=== PATIENT | male | born 1965 ===

== ENCOUNTER 2017-03-08 20:20 | Observation (INO) | payer MEDICARE, BC ==
[2017-03-08 20:44] VITALS: BMI 28.7
[2017-03-08 21:32] LABS: BASO # 0.1 K/uL (0.0-0.2); BASO % 1.1 % (0.0-2.0); EOS # 0.3 K/uL (0.0-0.7); EOS % 4.3 % (0.0-4.0); HEMATOCRIT 38.1 % (35.0-51.0); LYMPH # 2.1 K/uL (1.0-4.3); LYMPH % 29.4 % (20.0-40.0); MEAN CORPUSCULAR HEMOGLOBIN 33.2 pg (27.0-31.0); MEAN CORPUSCULAR HGB CONC 34.9 g/dL (33.0-37.0); MEAN PLATELET VOLUME 8.4 fL (7.2-11.7); MONO % 13.5 % (0.0-10.0); RED CELL DISTRIBUTION WIDTH 13.4 % (11.5-14.5); WHITE BLOOD COUNT 7.2 K/uL (4.8-10.8)
[2017-03-08 21:39] LABS: CHLORIDE 89 mmol/L (98-107); SODIUM 139 mmol/L (132-148)
[2017-03-08 21:40] LABS: POTASSIUM 4.3 mmol/L (3.6-5.2)
[2017-03-08 21:41] LABS: CHOLESTEROL 193 mg/dL (0-199)
[2017-03-08 21:42] LABS: ALB/GLOB RATIO 1.1 (1.0-2.1); ALKALINE PHOSPHATASE 121 U/L (38-126); AST/SGOT 33 U/L (17-59); BILIRUBIN,TOTAL 0.7 mg/dL (0.2-1.3); BLOOD UREA NITROGEN 54 mg/dL (9-20); CARBON DIOXIDE 30 mmol/L (22-30); GFR AFRICAN-AMERICAN 8; GLUCOSE,RANDOM 189 mg/dL (75-110); TOTAL PROTEIN 8.5 g/dL (6.3-8.3)
[2017-03-08 21:43] LABS: ALT/SGPT 40 U/L (21-72); CALCIUM 9.9 mg/dl (8.6-10.4)
[2017-03-08 21:44] LABS: INR 1.1
--- NOTE | 2017-03-08 22:31 | C.PDOC ---
History Of Present Illness 51 year old male who presents to the ER with a complaint of diplopia for the last 8 hours. Patient states it worsens with distant vision and when looking to each side. Denies headache, nausea, or vomiting. Time Seen by Provider: 03/08/17 20:38 Chief Complaint (Nursing): Headache History Per: Patient History/Exam Limitations: no limitations Onset/Duration Of Symptoms: Hrs Current Symptoms Are (Timing): Still Present Preceeding Symptoms: Other (Diplopia) Associated Symptoms: denies: Photophobia, Nausea, Vomiting, Extremity Weakness Recent travel outside of the [place]: No Past Medical History Reviewed: Historical Data, Nursing Documentation, Vital Signs Vital Signs: Last Vital Signs Temp 98.1 F 03/08/17 20:40 Pulse 72 03/08/17 21:37 Resp 20 03/08/17 20:40 BP 144/88 03/08/17 21:37 Pulse Ox 100 03/08/17 22:42 - Medical History PMH: CHF (2014), Diabetes, HTN, Hypercholesterolemia, Peripheral Edema, Pneumothorax, End Stage Renal Disease, Chronic Kidney Disease (Stage III kidney dis) Surgical History: No Surg Hx - [facility] Procedures ASSISTANCE WITH RESPIRATORY VENTILATION, <24 HRS, CPAP (04/12/16) OTHER SKIN & SUBQ I D (09/21/14) PERFORMANCE OF URINARY FILTRATION, MULTIPLE (06/02/16) Family History: States: Unknown Family Hx - Social History Hx Tobacco Use: No Hx Alcohol Use: Yes Hx Substance Use: No - Immunization History Hx Tetanus Toxoid Vaccination: Yes Hx Influenza Vaccination: Yes Hx Pneumococcal Vaccination: Yes Review Of Systems Constitutional: Negative for: Fever, Chills Eyes: Positive for: Other (Diplopia) Gastrointestinal: Negative for: Nausea, Vomiting Neurological: Negative for: Headache Physical Exam - Physical Exam Appears: Non-toxic Skin: Normal Color, Warm, Dry Head: Atraumatic, Normacephalic Eye(s): bilateral: Normal Inspection (No strabismus), PERRL, EOMI Oral Mucosa: Moist Neck: Normal, Supple Chest: Symmetrical, No Tenderness Cardiovascular: Rhythm Regular Respiratory: Normal Breath Sounds, No Rales, No Rhonchi, No Wheezing Gastrointestinal/Abdominal: Soft, No Tenderness Extremity: Normal ROM (x4) Neurological/Psych: Oriented x3, Normal Speech, Normal Cognition, Normal Motor, Normal Sensation ED Course And Treatment - Laboratory Results Result Diagrams: 03/08/17 21:28 03/08/17 21:28 Lab Interpretation: Abnormal (normal K+, c/w HD) ECG: Interpreted By Me ECG Rhythm: Sinus Rhythm ECG Interpretation: Normal Rate From EC O2 Sat by Pulse Oximetry: 100 Pulse Ox Interpretation: Normal - Radiology CXR: Interpreted by Me CXR Interpretation: Yes: No Acute Disease - Other Rad head CT X-Ray: Interpreted by Me, Read By Radiologist (neg) Progress Note: CT head, EKG, blood work, and CXR ordered. Aspirin and tylenol administered. Reevaluation Time: 22:30 Reassessment Condition: Unchanged - Physician Consult Information Outcome Of Conversation: 2230: d/w Dr. Brown- Hospitalist [employer] Professional- ok to Obs. Medical Decision Making Medical Decision Making: ? L eye palsy, but atypical presentation, no MEDEIROS consider CN palsy consider MRI Brain/eye in AM Disposition Doctor Will See Patient In The: Hospital Counseled Patient/Family Regarding: Studies Performed, Diagnosis - Disposition Disposition: HOSPITALIZED Disposition Time: 22:31 Condition: GOOD - Clinical Impression Clinical Impression: Diplopia - Scribe Statement The provider has reviewed the documentation as recorded by the Scribe Brian Patrick All medical record entries made by the Scribe were at my direction and personally dictated by me. I have reviewed the chart and agree that the record accurately reflects my personal performance of the history, physical exam, medical decision making, and the department course for this patient. I have also personally directed, reviewed, and agree with the discharge instructions and disposition.
--- NOTE | 2017-03-09 00:05 | CP.PCM.HP ---
<Jamir Neil - Last Filed: 03/09/17 00:56> History of Present Illness - History of Present Illness History of Present Illness: 51 yo M with a PMHx of ESRD, DM2, HTN, Gout, bilateral cataracts, presented to the ED for first time instance of diplopia which began suddenly this afternooon while sitting on the couch watching television. He took a nap but the diplopia was still present thus decided to come to the ED. He says closing either the right or left eye resolves the diplopia. He admits to feeling "pressure" in his ears bilaterally that began 1 weeks ago. He denies any other symptoms. He denies focal deficits, slurred speech, migraine, weakness, nausea, vomiting, numbness/tingling. He says he seeing an opthamologist for "retinal issues" and gets treatment every few months with his last treatment in 10/2016. Patient with insurance issues and hasn't taken home medications for last 1 month. PMD: Dr Thorpe; Holter Technician: Dr Markel Hill; Opthamologist: Dr Villatoro PMHx: ESRD - TThS, DM2 (20+ yrs), HTN, Gout, bilateral cataracts, right ankle instability PSHx: AVF formation 2015, cataract surgery right eye 2014, cataract surgery left eye 2013, chest tube placement right side 2003 Allergies: NKA Home Medications: norvasc 5mg qd, metoprolol succinate 50mg qd, lasix 40mg po bid on non-dialysis days, humulin 32u qAM and 22u qPM, allopurinol 100mg po daily, renvela 800mg tid FamHx: Mother - DM; Father - DM, [place]; Brother - DM, from [place] SocialHx: denies tobacco, drug use; social alcohol drinker; lives at home with ; on disability Present on Admission - Present on Admission Any Indicators Present on Admission: No History of DVT/PE: No Review of Systems - Constitutional Constitutional: Headache. absent: Chills, Fatigue, Fever, Lethargy, Weight Gain , Weight Loss, Weakness - EENT Eyes: Diplopia. absent: Exophthalmos, Itchy Eyes, Loss of Vision Ears: absent: Decreased Hearing, Ear Discharge, Ear Pain, Tinnitus, Abnormal Hearing, Disequilibrium, Dizziness Nose/Mouth/Throat: absent: Nasal Congestion, Nasal Discharge, Dysphagia, Hoarsness, Mouth Pain - Cardiovascular Cardiovascular: absent: Chest Pain, Palpitations - Respiratory Respiratory: absent: Cough, Dyspnea, Wheezing - Gastrointestinal Gastrointestinal: absent: Abdominal Pain, Constipation, Diarrhea, Nausea, Vomiting - Genitourinary Genitourinary: absent: Dysuria, Flank Pain, Urinary Frequency Additional comments: Patient able to make urine, normally 3x a day - Musculoskeletal Musculoskeletal: absent: Back Pain, Muscle Weakness, Numbness, Tingling - Integumentary Integumentary: absent: Lesions - Neurological Neurological: Headaches. absent: Abnormal Hearing, Confusion, Convulsions, Disequilibrium, Dizziness, Loss of Vision, Paresthesias, Radicular Pain, Syncope , Tingling, Vertigo Past Patient History - Infectious Disease Hx of Infectious Diseases: None - Past Medical History & Family History Past Medical History?: Yes - Past Social History Smoking Status: Never Smoked - CARDIAC Hx Congestive Heart Failure: Yes (2014) Hx Hypercholesterolemia: Yes Hx Hypertension: Yes Hx Peripheral Edema: Yes - PULMONARY Other/Comment: HX:"fluid in the lungs" - HEENT Hx HEENT Problems: No - RENAL Hx Chronic Kidney Disease: Yes (Stage III kidney dis) - ENDOCRINE/METABOLIC Hx Diabetes Mellitus Type 2: Yes - HEMATOLOGICAL/ONCOLOGICAL Hx Blood Disorders: No - INTEGUMENTARY Hx Dermatological Problems: Yes Hx Cellulitis: Yes - MUSCULOSKELETAL/RHEUMATOLOGICAL Other/Comment: HX:Right ankle states cartilage worn out between caused freq. falls. PT. REPORTS OF 03/24/16- BETTER BALANCE NOW WEARING RIGHT ANKLE BRACE. - GASTROINTESTINAL Hx Gastrointestinal Disorders: No - GENITOURINARY/GYNECOLOGICAL Hx Genitourinary Disorders: No - PSYCHIATRIC Hx Substance Use: No - SURGICAL HISTORY Hx Cataract Extraction: Yes (BILAT.) Other/Comment: lt arm fistula - ANESTHESIA Hx Anesthesia: Yes Hx Anesthesia Reactions: No Hx Malignant Hyperthermia: No Meds Allergies/Adverse Reactions: Allergies Allergy/AdvReac Type Severity Reaction Status Date / Time No Known Allergies Allergy Verified 07/10/16 19:46 Physical Exam - Constitutional Appears: Well, Non-toxic, No Acute Distress - Head Exam Head Exam: ATRAUMATIC - Eye Exam Eye Exam: EOMI. absent: Nystagmus, Scleral icterus Pupil Exam: PERRL - ENT Exam ENT Exam: Mucous Membranes Moist - Neck Exam Neck exam: Negative for: Lymphadenopathy, Tenderness - Respiratory Exam Respiratory Exam: Clear to Auscultation Bilateral. absent: Rales, Rhonchi, Wheezes - Cardiovascular Exam Cardiovascular Exam: REGULAR RHYTHM, RRR, +S1, +S2. absent: Bradycardia, Tachycardia, Diastolic murmur, JVD, Systolic Murmur - GI/Abdominal Exam GI & Abdominal Exam: Normal Bowel Sounds, Soft. absent: Distended, Guarding, Tenderness - Rectal Exam Rectal Exam: Deferred - Extremities Exam Extremities exam: Positive for: normal capillary refill, normal inspection, pedal pulses present. Negative for: pedal edema, tenderness Additional comments: right leg in brace due to "cartilage wasting" - Back Exam Back exam: NORMAL INSPECTION - Neurological Exam Neurological exam: Alert, CN II-XII Intact, Oriented x3, Reflexes Normal - Psychiatric Exam Psychiatric exam: Normal Affect, Normal Mood - Skin Skin Exam: Dry, Intact, Normal Color, Warm Results - Vital Signs Recent Vital Signs: Last Vital Signs Temp 98.1 F 03/08/17 20:40 Pulse 71 03/08/17 23:12 Resp 14 03/08/17 23:12 BP 138/88 03/08/17 23:12 Pulse Ox 97 03/08/17 23:12 - Labs Result Diagrams: 03/08/17 21:28 03/08/17 21:28 Labs: Laboratory Results - last 24 hr 03/08/17 03/08/17 03/08/17 20:37 21:28 21:28 WBC 7.2 RBC 4.01 L Hgb 13.3 Hct 38.1 MCV 95.0 H D MCH 33.2 H MCHC 34.9 RDW 13.4 Plt Count 190 MPV 8.4 Neut % (Auto) 51.7 Lymph % (Auto) 29.4 Lamb % (Auto) 13.5 H Eos % (Auto) 4.3 H Baso % (Auto) 1.1 Neut # 3.7 Lymph # 2.1 Lamb # 1.0 H Eos # 0.3 Baso # 0.1 PT 11.8 INR 1.1 APTT 34 Sodium Potassium Chloride Carbon Dioxide Anion Gap BUN Creatinine Est GFR ( Amer) Est GFR (Non-Af Amer) POC Glucose (mg/dL) 305 H Random Glucose Calcium Total Bilirubin AST ALT Alkaline Phosphatase Troponin I NT-Pro-B Natriuret Pep Total Protein Albumin Globulin Albumin/Globulin Ratio Triglycerides Cholesterol LDL Cholesterol Direct HDL Cholesterol 03/08/17 21:28 WBC RBC Hgb Hct MCV MCH MCHC RDW Plt Count MPV Neut % (Auto) Lymph % (Auto) Lamb % (Auto) Eos % (Auto) Baso % (Auto) Neut # Lymph # Lamb # Eos # Baso # PT INR APTT Sodium 139 Potassium 4.3 Chloride 89 L Carbon Dioxide 30 Anion Gap 24 H BUN 54 H Creatinine 8.1 H* D Est GFR ( Amer) 8 Est GFR (Non-Af Amer) 7 POC Glucose (mg/dL) Random Glucose 189 H Calcium 9.9 Total Bilirubin 0.7 AST 33 ALT 40 Alkaline Phosphatase 121 Troponin I < 0.0120 NT-Pro-B Natriuret Pep 1770 H Total Protein 8.5 H Albumin 4.5 Globulin 4.0 H Albumin/Globulin Ratio 1.1 Triglycerides 207 H D Cholesterol 193 LDL Cholesterol Direct 98 HDL Cholesterol 38 Assessment & Plan (1) Diplopia Assessment and Plan: sudden onset diplopia; NIH score 0; no other focal deficits; no dysarthria, n/v , nystagmus; ekg normal Neurology consulted, Dr Beyer F/U official Head CT report. "Wet Read" - no acute pathology MRI in the AM, get in touch with Dr Beyer to specify MRI type ECHO ordered Carotid doppler ordered Trop neg, coag studies normal, High Triglycerides but HDL/LDL/Cholesterol normal F/U HgbA1C, TSH aspirin 81mg po daily Status: Acute (2) ESRD (end stage renal disease) on dialysis Assessment and Plan: 2/2 to DM2; TTHS schedule; Nephorology consulted, Dr Markel Hill F/U HgA1C con't home med Humalin 32u sc qAM, 22u sc qPM con't home med furosemide 40mg po bid on Non-Dialysis days Status: Acute (3) Gout Assessment and Plan: con't home med allopurinol 100mg po qd Status: Chronic (4) Hypertension Assessment and Plan: BP well controlled con't home med Norvasc 5mg po qd con't home med Metoprolol succinate 50mg po qd Status: Chronic (5) Hyperlipidemia Assessment and Plan: Triglycerides 207; Other lipid markers WNL advise weight loss, aerobic exercise, avoidance of concentrated sugars and alcohol, strict glycemic control consider statin as LDL goal <70 Status: Acute (6) Prophylactic measure Assessment and Plan: DVT: heparin 5000u sc q12; contraindication to SCD due to knee brace/ osteoarthritis GI: pepcid 20mg po daily Diet: diabetic diet w/ moderate carb consistency Status: Acute <Luis Brown - Last Filed: 03/09/17 06:18> Results - Vital Signs Recent Vital Signs: Last Vital Signs Temp 98.1 F 03/08/17 23:55 Pulse 78 03/08/17 23:55 Resp 20 03/08/17 23:55 BP 156/86 H 03/08/17 23:55 Pulse Ox 98 03/08/17 23:55 - Labs Result Diagrams: 03/08/17 21:28 03/08/17 21:28 Labs: Laboratory Results - last 24 hr 03/08/17 03/08/17 03/08/17 20:37 21:28 21:28 WBC 7.2 RBC 4.01 L Hgb 13.3 Hct 38.1 MCV 95.0 H D MCH 33.2 H MCHC 34.9 RDW 13.4 Plt Count 190 MPV 8.4 Neut % (Auto) 51.7 Lymph % (Auto) 29.4 Lamb % (Auto) 13.5 H Eos % (Auto) 4.3 H Baso % (Auto) 1.1 Neut # 3.7 Lymph # 2.1 Lamb # 1.0 H Eos # 0.3 Baso # 0.1 PT 11.8 INR 1.1 APTT 34 Sodium Potassium Chloride Carbon Dioxide Anion Gap BUN Creatinine Est GFR ( Amer) Est GFR (Non-Af Amer) POC Glucose (mg/dL) 305 H Random Glucose Calcium Total Bilirubin AST ALT Alkaline Phosphatase Troponin I NT-Pro-B Natriuret Pep Total Protein Albumin Globulin Albumin/Globulin Ratio Triglycerides Cholesterol LDL Cholesterol Direct HDL Cholesterol 03/08/17 21:28 WBC RBC Hgb Hct MCV MCH MCHC RDW Plt Count MPV Neut % (Auto) Lymph % (Auto) Lamb % (Auto) Eos % (Auto) Baso % (Auto) Neut # Lymph # Lamb # Eos # Baso # PT INR APTT Sodium 139 Potassium 4.3 Chloride 89 L Carbon Dioxide 30 Anion Gap 24 H BUN 54 H Creatinine 8.1 H* D Est GFR ( Amer) 8 Est GFR (Non-Af Amer) 7 POC Glucose (mg/dL) Random Glucose 189 H Calcium 9.9 Total Bilirubin 0.7 AST 33 ALT 40 Alkaline Phosphatase 121 Troponin I < 0.0120 NT-Pro-B Natriuret Pep 1770 H Total Protein 8.5 H Albumin 4.5 Globulin 4.0 H Albumin/Globulin Ratio 1.1 Triglycerides 207 H D Cholesterol 193 LDL Cholesterol Direct 98 HDL Cholesterol 38 Assessment & Plan - Date & Time Date: 03/09/17 (I have seen and examined the patient. I agree with the findings and plan of care as documented by Dr. Neil. Patient with diplopia. Follow up official CT head result. MRI brain in AM. Consult to neuro. Consult nephro for history of ESRD for dialysis. Continue home meds for history of hypertension. Monitor for acute changes.) Time: 06:17 Attending/Attestation - Attestation I have personally seen and examined this patient.: Yes I have fully participated in the care of the patient.: Yes I have reviewed all pertinent clinical information: Yes
[2017-03-09 07:33] LABS: RBC URINE < 1 /hpf (0-3); URINE BILIRUBIN NEGATIVE (NEGATIVE); URINE BLOOD NEGATIVE (NEGATIVE); URINE COLOR Yellow (YELLOW); URINE GLUCOSE (UA) 3+ mg/dL (Normal); URINE KETONE NEGATIVE (NEGATIVE); URINE LEUKOCYTE ESTERASE NEG Leu/uL (Negative); URINE PROTEIN 3+ mg/dL (NEGATIVE); URINE UROBILINOGEN NORMAL mg/dL (0.2-1.0); WBC URINE < 1 /hpf (0-5)
[2017-03-09] MEDS: (Novolin R) Insulin Human Regular 100 units/ml vial SC SCH ×4 (07:56→21:26)
[2017-03-09 08:13] LABS: BASO # 0.1 K/uL (0.0-0.2); BASO % 0.9 % (0.0-2.0); EOS # 0.3 K/uL (0.0-0.7); EOS % 3.4 % (0.0-4.0); HEMATOCRIT 36.1 % (35.0-51.0); LYMPH # 2.1 K/uL (1.0-4.3); MEAN CELL VOLUME 95.1 fL (80.0-94.0); MEAN CORPUSCULAR HEMOGLOBIN 33.6 pg (27.0-31.0); MEAN CORPUSCULAR HGB CONC 35.3 g/dL (33.0-37.0); MEAN PLATELET VOLUME 8.8 fL (7.2-11.7); MONO # 0.9 K/uL (0.0-0.8); MONO % 10.9 % (0.0-10.0); RED CELL DISTRIBUTION WIDTH 13.2 % (11.5-14.5); WHITE BLOOD COUNT 8.6 K/uL (4.8-10.8)
--- NOTE | 2017-03-09 08:17 | CT ---
PROCEDURE: CT HEAD WITHOUT CONTRAST. HISTORY: L eye palsy, DM, ? aneurysm vs DM palsy COMPARISON: Noncontrast head CT performed 04/25/15 TECHNIQUE: Axial computed tomography images were obtained through the head/brain without intravenous contrast. Radiation dose: Total exam DLP = 863.02 mGy-cm. This CT exam was performed using one or more of the following dose reduction techniques: Automated exposure control, adjustment of the mA and/or kV according to patient size, and/or use of iterative reconstruction technique. FINDINGS: HEMORRHAGE: No intracranial hemorrhage. BRAIN: No mass effect or edema. The david-white matter differentiation appears intact. Please note that MRI with diffusion imaging is more sensitive in the detection of acute ischemic event. VENTRICLES: No hydrocephalus. CALVARIUM: Unremarkable. PARANASAL SINUSES: Unremarkable as visualized. No significant inflammatory changes. MASTOID AIR CELLS: Unremarkable as visualized. No inflammatory changes. OTHER FINDINGS: None. IMPRESSION: No acute intracranial pathology identified.
[2017-03-09 08:40] LABS: POTASSIUM 4.1 mmol/L (3.6-5.2)
[2017-03-09 08:42] LABS: BILIRUBIN,TOTAL 0.6 mg/dL (0.2-1.3)
[2017-03-09 08:43] LABS: ALB/GLOB RATIO 1.2 (1.0-2.1); TOTAL PROTEIN 7.9 g/dL (6.3-8.3)
[2017-03-09 08:44] LABS: CALCIUM 9.4 mg/dl (8.6-10.4)
[2017-03-09 08:54] LABS: THYROID STIMULATING HORMONE 1.69 mIU/L (0.46-4.68)
--- NOTE | 2017-03-09 09:26 | RAD ---
Chest x-ray single frontal view History: Admission film. Comparison: 06/02/2016 Findings: Patchy consolidative changes in the left mid lung zone. Additional mild patchy consolidative changes at the right lung base. Mild right hilar prominence. Diffuse increased interstitial lung markings which may represent mild venous congestion. Mild cardiomegaly. Degenerative changes in the spine and shoulders. Impression: Patchy consolidative changes in the left mid lung zone. Additional mild patchy consolidative changes at the right lung base. Mild right hilar prominence. Diffuse increased interstitial lung markings which may represent mild venous congestion. Mild cardiomegaly.
[2017-03-09] MEDS: (Novolin 70/30) NPH/Regular 70/30 Units/ml 10 ml vial SC SCH ×2 (09:57→18:11)
[2017-03-09] MEDS: Metoprolol Succinate 50 mg XL Tab PO SCH (10:07)
--- NOTE | 2017-03-09 15:39 | CP.PCM.CON ---
History of Present Illness - History of Present Illness History of Present Illness: Initial Nephrology Consultation: Assessment: Stable Diplopia Diabetic chronic Kidney Disease (E11.22) Hypertensive Chronic Kidney Disease (I12.0) End stage renal disease (N18.6) dependence on hemodialysis (Z99.2) (TTS) via AVF Hyperphosphatemia (E83.39), Secondary Hyperparathyroidism (E21.1), HTN (I12.0) Plan: No acute need for dialysis today. Will plan for dialysis tomorrow. Continue with Nephrovite 1 tab/day. Continue with phos binders home dose he gets hectorol 2 mcg dialysis. Last PTH level 225 BP control with meds as ordered. Patient not on RAAS carol as BP controlled Glycemic control, Dialysis consistent diet Further work up/management as per primary team Dose meds/antibiotics (if needed) for ESRD status. Avoid fleets enema/magnesium based laxatives. planned for MRI brain Thanks for allowing me to participate in care of your patient. Will follow patient with you. Please call if any Qs Dr Taqueria Carson Office: [phone] Chief Complaint; double vision HPI: Pt is a 51 y/o M with hx of ESRD on hemodialysis (TTS) via AVF, last dialysis sat, chronic anemia, hyperphosphatemia, secondary hyperparathyroidism, Diabetes Mellitus, hypertension presented with complaints of double vision for last 1 day. Denies chest pain, palpitation, shortness of breath, leg swelling. no headache/ weakness ROS: Constitutional Symptoms: Denies fever. No chills. No Recent Weight Changes Eyes: denies change in vision, denies watery eyes, c/o double vision Ears/Nose/Mouth/Throat: Denies Abnormal Taste. No Bad breath or Bad Taste. Cardiovascular: No chest pain. There is no shortness of breath. No palpitations. Pulmonary: No shortness of breath or cough. Gastrointestinal: denies abdominal pain No nausea. No vomiting. Denies change in bowel habits. Denies Bleeding Genitourinary: makes small urine. No associated pain or blood. Neurological: Denies headaches. No dizziness. Denies loss of balance. Denies weakness, denies tingling/numbness. Dermatological: No Rash or Bruising or ulcers. Psychiatric: Denies Anxiety. No depression. Denies hallucinations. Rheumatological: No joint pain. Denies Joint swelling Endocrine: Denies over tiredness. Denies Fatigue and denies Heat/Cold Intolerance. All other negative. Physical Examination: General Appearance: Comfortable, in no acute respiratory distress, co-operative . Vitals reviewed and noted as below Head; Atraumatic, normocephalic ENT: no ulcers no thrush. Tongue is midline. Oropharynx: no rash or ulcers. EYES: Pupils are equal, round and reactive to light accommodation. Eye muscles and extraocular movement intact. Sclera is anicteric. has diplopia Neck; supple no lymphadenopathy, no thyromegaly or bruit Lungs: Normal respiratory rate/effort. Breath sounds bilateral equal and clear Heart: Normal rate. s1s2 normal. No rub or gallop. Extremities: no edema. No varicose veins Neurological: Patient is alert, awake and oriented to person, place and time. No focal deficit. Strength bilateral appropriate and equal Skin: Warm and dry. Normal turgor. No rash. Palpitation: Normal elasticity for age Abdomen: Abdomen is soft. Bowel sounds +. There is no abdominal tenderness, no guarding/rigidity or organomegaly Psych: normal insight and normal affect/mood MSK: no joint tenderness or swelling. Digits and nails normal, no deformity : kidney or bladder not palpable Access: AVF Labs/imaging reviewed. Past medical history, past surgical history, family history, social history, allergy reviewed and noted as below Family Hx: no hx of CKD. Non contributory Past Patient History - Infectious Disease Hx of Infectious Diseases: None - Past Medical History & Family History Past Medical History?: Yes - Past Social History Smoking Status: Never Smoked - CARDIAC Hx Congestive Heart Failure: Yes (2014) Hx Hypercholesterolemia: Yes Hx Hypertension: Yes Hx Peripheral Edema: Yes - PULMONARY Hx Respiratory Disorders: No Other/Comment: HX:"fluid in the lungs" - NEUROLOGICAL Hx Neurological Disorder: No - HEENT Hx HEENT Problems: No Hx Cataracts: Yes (both eyes) - RENAL Date of Last Dialysis Treatment: 03/07/17 - ENDOCRINE/METABOLIC Hx Diabetes Mellitus Type 2: Yes - HEMATOLOGICAL/ONCOLOGICAL Hx Blood Disorders: No - INTEGUMENTARY Hx Dermatological Problems: Yes Hx Cellulitis: Yes - MUSCULOSKELETAL/RHEUMATOLOGICAL Hx Falls: No - GASTROINTESTINAL Hx Gastrointestinal Disorders: No - GENITOURINARY/GYNECOLOGICAL Hx Genitourinary Disorders: No - PSYCHIATRIC Hx Substance Use: No - SURGICAL HISTORY Hx Cataract Extraction: Yes (BILAT.) Hx Eye Surgery: Yes (catarct sx both eyes) Other/Comment: rt.arm fistula - ANESTHESIA Hx Anesthesia: Yes Hx Anesthesia Reactions: No Hx Malignant Hyperthermia: No Meds Allergies/Adverse Reactions: Allergies Allergy/AdvReac Type Severity Reaction Status Date / Time No Known Allergies Allergy Verified 07/10/16 19:46 - Medications Medications: Current Medications Allopurinol (Zyloprim) 100 mg PO DAILY [facility] Last Admin: 03/09/17 09:54 Dose: 100 mg Amlodipine Besylate (Norvasc) 5 mg PO DAILY [facility] Last Admin: 03/09/17 09:53 Dose: 5 mg Aspirin (Aspirin Chewable) 81 mg PO DAILY [facility] Last Admin: 03/09/17 09:54 Dose: 81 mg Famotidine (Pepcid) 20 mg PO DAILY [facility] Last Admin: 03/09/17 09:54 Dose: 20 mg Furosemide (Lasix) 40 mg PO BID [facility] Last Admin: 03/09/17 09:53 Dose: 40 mg Heparin Sodium (Porcine) (Heparin) 5,000 units SC Q12 [facility] Last Admin: 03/09/17 09:54 Dose: 5,000 units Insulin Human Isoph/Insulin Regular (Novolin 70/30 (70/30 Units/Ml) 10 Ml) 32 units SC QAM [facility] Last Admin: 03/09/17 09:57 Dose: 32 units Insulin Human Isoph/Insulin Regular (Novolin 70/30 (70/30 Units/Ml) 10 Ml) 22 units SC QPM [facility] Insulin Human Regular (Novolin R) 0 unit SC ACHS [facility] PRN Reason: Protocol Last Admin: 03/09/17 12:03 Dose: 2 unit Metoprolol Succinate (Toprol Xl) 50 mg PO DAILY [facility] Last Admin: 03/09/17 10:07 Dose: 50 mg Sevelamer Carbonate (Renvela) 800 mg PO TIDCC [facility] Last Admin: 03/09/17 12:03 Dose: 800 mg Results - Vital Signs Recent Vital Signs: Last Vital Signs Temp 97.8 F 03/09/17 08:09 Pulse 63 03/09/17 08:09 Resp 20 03/09/17 08:09 BP 149/78 03/09/17 09:53 Pulse Ox 97 03/09/17 08:09 - Labs Result Diagrams: 03/09/17 07:54 03/09/17 07:54 Labs: Laboratory Results - last 24 hr 03/08/17 03/08/17 03/08/17 20:37 21:28 21:28 WBC 7.2 RBC 4.01 L Hgb 13.3 Hct 38.1 MCV 95.0 H D MCH 33.2 H MCHC 34.9 RDW 13.4 Plt Count 190 MPV 8.4 Neut % (Auto) 51.7 Lymph % (Auto) 29.4 [place] % (Auto) 13.5 H Eos % (Auto) 4.3 H Baso % (Auto) 1.1 Neut # 3.7 Lymph # 2.1 [place] # 1.0 H Eos # 0.3 Baso # 0.1 PT 11.8 INR 1.1 APTT 34 Sodium Potassium Chloride Carbon Dioxide Anion Gap BUN Creatinine Est GFR ( Amer) Est GFR (Non-Af Amer) POC Glucose (mg/dL) 305 H Random Glucose Hemoglobin A1c Calcium Total Bilirubin AST ALT Alkaline Phosphatase Troponin I NT-Pro-B Natriuret Pep Total Protein Albumin Globulin Albumin/Globulin Ratio Triglycerides Cholesterol LDL Cholesterol Direct HDL Cholesterol TSH 3rd Generation Urine Color Urine Clarity Urine pH Ur Specific [place] Urine Protein Urine Glucose (UA) Urine Ketones Urine Blood Urine Nitrate Urine Bilirubin Urine Urobilinogen Ur Leukocyte Esterase Urine WBC (Auto) Urine RBC (Auto) 03/08/17 03/08/17 03/09/17 21:28 21:28 07:00 WBC RBC Hgb Hct MCV MCH MCHC RDW Plt Count MPV Neut % (Auto) Lymph % (Auto) [place] % (Auto) Eos % (Auto) Baso % (Auto) Neut # Lymph # [place] # Eos # Baso # PT INR APTT Sodium 139 Potassium 4.3 Chloride 89 L Carbon Dioxide 30 Anion Gap 24 H BUN 54 H Creatinine 8.1 H* D Est GFR ( Amer) 8 Est GFR (Non-Af Amer) 7 POC Glucose (mg/dL) Random Glucose 189 H Hemoglobin A1c 8.6 H Calcium 9.9 Total Bilirubin 0.7 AST 33 ALT 40 Alkaline Phosphatase 121 Troponin I < 0.0120 NT-Pro-B Natriuret Pep 1770 H Total Protein 8.5 H Albumin 4.5 Globulin 4.0 H Albumin/Globulin Ratio 1.1 Triglycerides 207 H D Cholesterol 193 LDL Cholesterol Direct 98 HDL Cholesterol 38 TSH 3rd Generation Urine Color Yellow Urine Clarity Clear Urine pH 7.0 Ur Specific [place] 1.016 Urine Protein 3+ H Urine Glucose (UA) 3+ H Urine Ketones Negative Urine Blood Negative Urine Nitrate Negative Urine Bilirubin Negative Urine Urobilinogen Normal Ur Leukocyte Esterase Neg Urine WBC (Auto) < 1 Urine RBC (Auto) < 1 03/09/17 03/09/17 03/09/17 07:02 07:54 07:54 WBC 8.6 RBC 3.80 L Hgb 12.7 Hct 36.1 MCV 95.1 H MCH 33.6 H MCHC 35.3 RDW 13.2 Plt Count 179 MPV 8.8 Neut % (Auto) 60.8 Lymph % (Auto) 24.0 [place] % (Auto) 10.9 H Eos % (Auto) 3.4 Baso % (Auto) 0.9 Neut # 5.2 Lymph # 2.1 [place] # 0.9 H Eos # 0.3 Baso # 0.1 PT INR APTT Sodium 141 Potassium 4.1 Chloride 92 L Carbon Dioxide 28 Anion Gap 25 H BUN 63 H Creatinine 9.0 H* Est GFR ( Amer) 8 Est GFR (Non-Af Amer) 6 POC Glucose (mg/dL) 125 H Random Glucose 109 Hemoglobin A1c Calcium 9.4 Total Bilirubin 0.6 AST 35 ALT 41 Alkaline Phosphatase 102 Troponin I NT-Pro-B Natriuret Pep Total Protein 7.9 Albumin 4.3 Globulin 3.6 Albumin/Globulin Ratio 1.2 Triglycerides Cholesterol LDL Cholesterol Direct HDL Cholesterol TSH 3rd Generation 1.69 Urine Color Urine Clarity Urine pH Ur Specific [place] Urine Protein Urine Glucose (UA) Urine Ketones Urine Blood Urine Nitrate Urine Bilirubin Urine Urobilinogen Ur Leukocyte Esterase Urine WBC (Auto) Urine RBC (Auto) 03/09/17 11:07 WBC RBC Hgb Hct MCV MCH MCHC RDW Plt Count MPV Neut % (Auto) Lymph % (Auto) [place] % (Auto) Eos % (Auto) Baso % (Auto) Neut # Lymph # [place] # Eos # Baso # PT INR APTT Sodium Potassium Chloride Carbon Dioxide Anion Gap BUN Creatinine Est GFR ( Amer) Est GFR (Non-Af Amer) POC Glucose (mg/dL) 191 H Random Glucose Hemoglobin A1c Calcium Total Bilirubin AST ALT Alkaline Phosphatase Troponin I NT-Pro-B Natriuret Pep Total Protein Albumin Globulin Albumin/Globulin Ratio Triglycerides Cholesterol LDL Cholesterol Direct HDL Cholesterol TSH 3rd Generation Urine Color Urine Clarity Urine pH Ur Specific [place] Urine Protein Urine Glucose (UA) Urine Ketones Urine Blood Urine Nitrate Urine Bilirubin Urine Urobilinogen Ur Leukocyte Esterase Urine WBC (Auto) Urine RBC (Auto)
--- NOTE | 2017-03-09 16:11 | CP.PCM.CON ---
History of Present Illness - History of Present Illness History of Present Illness: Mr. Bond is a 51-year-old man with a past medical history of ESRD, DM2, HTN, Gout, bilateral cataracts, who presented to the ED with double vision that started earlier yesterday while he was watching a game. He states that he thought it was due to his blood pressure and he took a nap. He woke up 2.5 hours later and still had double vision. At that point, he came to the ER. He did not have any weakness, speech difficulty, sensory changes or any other associated symptoms. Review of Systems - Review of Systems All systems: reviewed and no additional remarkable complaints except Past Patient History - Infectious Disease Hx of Infectious Diseases: None - Past Medical History & Family History Past Medical History?: Yes - Past Social History Smoking Status: Never Smoked - CARDIAC Hx Congestive Heart Failure: Yes (2014) Hx Hypercholesterolemia: Yes Hx Hypertension: Yes Hx Peripheral Edema: Yes - PULMONARY Hx Respiratory Disorders: No Other/Comment: HX:"fluid in the lungs" - NEUROLOGICAL Hx Neurological Disorder: No - HEENT Hx HEENT Problems: No Hx Cataracts: Yes (both eyes) - RENAL Date of Last Dialysis Treatment: 03/07/17 - ENDOCRINE/METABOLIC Hx Diabetes Mellitus Type 2: Yes - HEMATOLOGICAL/ONCOLOGICAL Hx Blood Disorders: No - INTEGUMENTARY Hx Dermatological Problems: Yes Hx Cellulitis: Yes - MUSCULOSKELETAL/RHEUMATOLOGICAL Hx Falls: No - GASTROINTESTINAL Hx Gastrointestinal Disorders: No - GENITOURINARY/GYNECOLOGICAL Hx Genitourinary Disorders: No - PSYCHIATRIC Hx Substance Use: No - SURGICAL HISTORY Hx Cataract Extraction: Yes (BILAT.) Hx Eye Surgery: Yes (catarct sx both eyes) Other/Comment: rt.arm fistula - ANESTHESIA Hx Anesthesia: Yes Hx Anesthesia Reactions: No Hx Malignant Hyperthermia: No Meds Allergies/Adverse Reactions: Allergies Allergy/AdvReac Type Severity Reaction Status Date / Time No Known Allergies Allergy Verified 07/10/16 19:46 - Medications Medications: Current Medications Allopurinol (Zyloprim) 100 mg PO DAILY [facility] Last Admin: 03/09/17 09:54 Dose: 100 mg Amlodipine Besylate (Norvasc) 5 mg PO DAILY [facility] Last Admin: 03/09/17 09:53 Dose: 5 mg Aspirin (Aspirin Chewable) 81 mg PO DAILY [facility] Last Admin: 03/09/17 09:54 Dose: 81 mg Famotidine (Pepcid) 20 mg PO DAILY [facility] Last Admin: 03/09/17 09:54 Dose: 20 mg Furosemide (Lasix) 40 mg PO BID [facility] Last Admin: 03/09/17 09:53 Dose: 40 mg Heparin Sodium (Porcine) (Heparin) 5,000 units SC Q12 [facility] Last Admin: 03/09/17 09:54 Dose: 5,000 units Insulin Human Isoph/Insulin Regular (Novolin 70/30 (70/30 Units/Ml) 10 Ml) 32 units SC QAM [facility] Last Admin: 03/09/17 09:57 Dose: 32 units Insulin Human Isoph/Insulin Regular (Novolin 70/30 (70/30 Units/Ml) 10 Ml) 22 units SC QPM [facility] Insulin Human Regular (Novolin R) 0 unit SC ACHS [facility] PRN Reason: Protocol Last Admin: 03/09/17 12:03 Dose: 2 unit Metoprolol Succinate (Toprol Xl) 50 mg PO DAILY [facility] Last Admin: 03/09/17 10:07 Dose: 50 mg Sevelamer Carbonate (Renvela) 800 mg PO TIDCC [facility] Last Admin: 03/09/17 12:03 Dose: 800 mg Vitamin B Complex/Vit C/Folic Acid (Nephro-Gaby) 1 tab PO 0800 [facility] Physical Exam - Constitutional Appears: Well - Head Exam Head Exam: ATRAUMATIC, NORMAL INSPECTION, NORMOCEPHALIC - Eye Exam Pupil Exam: NORMAL ACCOMODATION, PERRL Additional comments: 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 - ENT Exam ENT Exam: Mucous Membranes Moist, Normal Exam - Neck Exam Neck exam: Positive for: Normal Inspection - Respiratory Exam Respiratory Exam: Clear to Auscultation Bilateral, NORMAL BREATHING PATTERN - Cardiovascular Exam Cardiovascular Exam: REGULAR RHYTHM, +S1, +S2 - GI/Abdominal Exam GI & Abdominal Exam: Normal Bowel Sounds, Soft. absent: Tenderness - Rectal Exam Rectal Exam: Deferred - Extremities Exam Extremities exam: Positive for: normal inspection - Back Exam Back exam: NORMAL INSPECTION - Neurological Exam Neurological exam: Alert, CN II-XII Intact, Normal Gait, Oriented x3, Reflexes Normal - Expanded Neurological Exam Expanded Patient oriented to: person, place, time Cranial nerves: EOM's Intact: Abnormal Right (Right partial 6th nerve palsy), Facial Palsey w/Forehead Movement: Normal, Facial Sensation: Normal, Nystagmus: Normal, Tongue Deviation: Normal Ataxia: No Cerebellar Function: Finger to Nose: Normal, Heel to Friend: Normal Upper motor neuron: Babinski Sign: Normal, Pronator Drift: Normal Sensory exam: Lower Extremity Light Touch: Normal, Lower Extremity Pin Prick: Normal, Upper Extremity Light Touch: Normal, Upper Extremity Pin Prick: Normal Neuro motor strength exam: Left Upper Extremity: 5, Right Upper Extremity: 5, Left Lower Extremity: 5, Right Lower Extremity: 5 DTR: Achilles Tendon Left: 2+, Achilles Tendon Right: 2+, Bicep Left: 2+, Bicep Right: 2+, Brachioradialis Left: 2+, Brachioradialis Right: 2+, Patellar Left: 2 +, Patellar Right: 2+, Tricep Left: 2+, Tricep Right: 2+ - Psychiatric Exam Psychiatric exam: Normal Affect, Normal Mood - Skin Skin Exam: Dry, Intact, Normal Color, Warm Results - Vital Signs Recent Vital Signs: Last Vital Signs Temp 97.8 F 03/09/17 08:09 Pulse 63 03/09/17 08:09 Resp 20 03/09/17 08:09 BP 149/78 03/09/17 09:53 Pulse Ox 97 03/09/17 08:09 - Labs Result Diagrams: 03/09/17 07:54 03/09/17 07:54 Labs: Laboratory Results - last 24 hr 03/08/17 03/08/17 03/08/17 20:37 21:28 21:28 WBC 7.2 RBC 4.01 L Hgb 13.3 Hct 38.1 MCV 95.0 H D MCH 33.2 H MCHC 34.9 RDW 13.4 Plt Count 190 MPV 8.4 Neut % (Auto) 51.7 Lymph % (Auto) 29.4 [place] % (Auto) 13.5 H Eos % (Auto) 4.3 H Baso % (Auto) 1.1 Neut # 3.7 Lymph # 2.1 [place] # 1.0 H Eos # 0.3 Baso # 0.1 PT 11.8 INR 1.1 APTT 34 Sodium Potassium Chloride Carbon Dioxide Anion Gap BUN Creatinine Est GFR ( Amer) Est GFR (Non-Af Amer) POC Glucose (mg/dL) 305 H Random Glucose Hemoglobin A1c Calcium Total Bilirubin AST ALT Alkaline Phosphatase Troponin I NT-Pro-B Natriuret Pep Total Protein Albumin Globulin Albumin/Globulin Ratio Triglycerides Cholesterol LDL Cholesterol Direct HDL Cholesterol TSH 3rd Generation Urine Color Urine Clarity Urine pH Ur Specific [place] Urine Protein Urine Glucose (UA) Urine Ketones Urine Blood Urine Nitrate Urine Bilirubin Urine Urobilinogen Ur Leukocyte Esterase Urine WBC (Auto) Urine RBC (Auto) 03/08/17 03/08/17 03/09/17 21:28 21:28 07:00 WBC RBC Hgb Hct MCV MCH MCHC RDW Plt Count MPV Neut % (Auto) Lymph % (Auto) [place] % (Auto) Eos % (Auto) Baso % (Auto) Neut # Lymph # [place] # Eos # Baso # PT INR APTT Sodium 139 Potassium 4.3 Chloride 89 L Carbon Dioxide 30 Anion Gap 24 H BUN 54 H Creatinine 8.1 H* D Est GFR ( Amer) 8 Est GFR (Non-Af Amer) 7 POC Glucose (mg/dL) Random Glucose 189 H Hemoglobin A1c 8.6 H Calcium 9.9 Total Bilirubin 0.7 AST 33 ALT 40 Alkaline Phosphatase 121 Troponin I < 0.0120 NT-Pro-B Natriuret Pep 1770 H Total Protein 8.5 H Albumin 4.5 Globulin 4.0 H Albumin/Globulin Ratio 1.1 Triglycerides 207 H D Cholesterol 193 LDL Cholesterol Direct 98 HDL Cholesterol 38 TSH 3rd Generation Urine Color Yellow Urine Clarity Clear Urine pH 7.0 Ur Specific [place] 1.016 Urine Protein 3+ H Urine Glucose (UA) 3+ H Urine Ketones Negative Urine Blood Negative Urine Nitrate Negative Urine Bilirubin Negative Urine Urobilinogen Normal Ur Leukocyte Esterase Neg Urine WBC (Auto) < 1 Urine RBC (Auto) < 1 03/09/17 03/09/17 03/09/17 07:02 07:54 07:54 WBC 8.6 RBC 3.80 L Hgb 12.7 Hct 36.1 MCV 95.1 H MCH 33.6 H MCHC 35.3 RDW 13.2 Plt Count 179 MPV 8.8 Neut % (Auto) 60.8 Lymph % (Auto) 24.0 [place] % (Auto) 10.9 H Eos % (Auto) 3.4 Baso % (Auto) 0.9 Neut # 5.2 Lymph # 2.1 [place] # 0.9 H Eos # 0.3 Baso # 0.1 PT INR APTT Sodium 141 Potassium 4.1 Chloride 92 L Carbon Dioxide 28 Anion Gap 25 H BUN 63 H Creatinine 9.0 H* Est GFR ( Amer) 8 Est GFR (Non-Af Amer) 6 POC Glucose (mg/dL) 125 H Random Glucose 109 Hemoglobin A1c Calcium 9.4 Total Bilirubin 0.6 AST 35 ALT 41 Alkaline Phosphatase 102 Troponin I NT-Pro-B Natriuret Pep Total Protein 7.9 Albumin 4.3 Globulin 3.6 Albumin/Globulin Ratio 1.2 Triglycerides Cholesterol LDL Cholesterol Direct HDL Cholesterol TSH 3rd Generation 1.69 Urine Color Urine Clarity Urine pH Ur Specific [place] Urine Protein Urine Glucose (UA) Urine Ketones Urine Blood Urine Nitrate Urine Bilirubin Urine Urobilinogen Ur Leukocyte Esterase Urine WBC (Auto) Urine RBC (Auto) 03/09/17 11:07 WBC RBC Hgb Hct MCV MCH MCHC RDW Plt Count MPV Neut % (Auto) Lymph % (Auto) [place] % (Auto) Eos % (Auto) Baso % (Auto) Neut # Lymph # [place] # Eos # Baso # PT INR APTT Sodium Potassium Chloride Carbon Dioxide Anion Gap BUN Creatinine Est GFR ( Amer) Est GFR (Non-Af Amer) POC Glucose (mg/dL) 191 H Random Glucose Hemoglobin A1c Calcium Total Bilirubin AST ALT Alkaline Phosphatase Troponin I NT-Pro-B Natriuret Pep Total Protein Albumin Globulin Albumin/Globulin Ratio Triglycerides Cholesterol LDL Cholesterol Direct HDL Cholesterol TSH 3rd Generation Urine Color Urine Clarity Urine pH Ur Specific [place] Urine Protein Urine Glucose (UA) Urine Ketones Urine Blood Urine Nitrate Urine Bilirubin Urine Urobilinogen Ur Leukocyte Esterase Urine WBC (Auto) Urine RBC (Auto) - Imaging and Cardiology CT scan - head Status: Image reviewed by me, Report reviewed by me (no acute findings. 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 However, a brainstem infarct should be ruled out with an MRI of the brain and MRA of the head/neck without contrast. Continue aspirin 81 mg daily. Manage hypertension, diabetes, and electrolyte disturbances per primary team. Eye patch of the right eye may help the patient feel less nauseous and help relieve symptoms of diplopia until the underlying cause is improved. PT/OT eval is recommended. DVT Px. Thank you. Status: Acute Priority: High
--- NOTE | 2017-03-09 19:08 | CP.PCM.PN ---
<Piedad Zamora - Last Filed: 03/09/17 19:26> Subjective - Date & Time of Evaluation Date of Evaluation: 03/09/17 Time of Evaluation: 19:03 - Subjective Subjective: Progress note for Dr. Melendez Patient states his diplopia is the same as yesterday. Patient states he's a little nauseous, but does not have pain in eye. Patient states he hasn't been taking his medications for a month or so and says that Dr. Villatoro normally takes care of his retinal problems. Patient states he has injections in his eyes and laser treatments. Patient has not seen the doctor in awhile. Objective - Vital Signs/Intake and Output Vital Signs (last 24 hours): Temp Pulse Resp BP Pulse Ox 98 F 65 20 127/77 97 03/09/17 16:33 03/09/17 16:33 03/09/17 16:33 03/09/17 17:02 03/09/17 16:33 Intake and Output: 03/09/17 03/10/17 18:59 06:59 Intake Total 360 Balance 360 - Medications Medications: Current Medications Allopurinol (Zyloprim) 100 mg PO DAILY [facility] Last Admin: 03/09/17 09:54 Dose: 100 mg Amlodipine Besylate (Norvasc) 5 mg PO DAILY [facility] Last Admin: 03/09/17 09:53 Dose: 5 mg Aspirin (Aspirin Chewable) 81 mg PO DAILY [facility] Last Admin: 03/09/17 09:54 Dose: 81 mg Famotidine (Pepcid) 20 mg PO DAILY [facility] Last Admin: 03/09/17 09:54 Dose: 20 mg Furosemide (Lasix) 40 mg PO BID [facility] Last Admin: 03/09/17 17:02 Dose: 40 mg Heparin Sodium (Porcine) (Heparin) 5,000 units SC Q12 [facility] Last Admin: 03/09/17 09:54 Dose: 5,000 units Insulin Human Isoph/Insulin Regular (Novolin 70/30 (70/30 Units/Ml) 10 Ml) 32 units SC QAM [facility] Last Admin: 03/09/17 09:57 Dose: 32 units Insulin Human Isoph/Insulin Regular (Novolin 70/30 (70/30 Units/Ml) 10 Ml) 22 units SC QPM [facility] Last Admin: 03/09/17 18:11 Dose: 22 units Insulin Human Regular (Novolin R) 0 unit SC ACHS [facility] PRN Reason: Protocol Last Admin: 03/09/17 17:02 Dose: Not Given Metoprolol Succinate (Toprol Xl) 50 mg PO DAILY [facility] Last Admin: 03/09/17 10:07 Dose: 50 mg Sevelamer Carbonate (Renvela) 800 mg PO TIDCC [facility] Last Admin: 03/09/17 16:37 Dose: 800 mg Vitamin B Complex/Vit C/Folic Acid (Nephro-Gaby) 1 tab PO 0800 [facility] - Labs Labs: 03/09/17 07:54 03/09/17 07:54 PT 11.8 SECONDS (9.7-12.2) 03/08/17 21:28 INR 1.1 03/08/17 21:28 APTT 34 SECONDS (21-34) 03/08/17 21:28 - Constitutional Appears: Non-toxic - Head Exam Head Exam: NORMAL INSPECTION - Eye Exam Eye Exam: EOMI, Normal appearance. absent: Nystagmus, Periorbital tenderness Pupil Exam: NORMAL ACCOMODATION - ENT Exam ENT Exam: Mucous Membranes Moist - Neck Exam Neck Exam: Full ROM - Cardiovascular Exam Cardiovascular Exam: REGULAR RHYTHM, +S1, +S2 - GI/Abdominal Exam GI & Abdominal Exam: Soft. absent: Tenderness - Extremities Exam Extremities Exam: Full ROM, Normal Inspection. absent: Pedal Edema - Neurological Exam Neurological Exam: Alert, Awake, Oriented x3 - Psychiatric Exam Psychiatric exam: Normal Affect, Normal Mood - Skin Skin Exam: Dry, Intact, Normal Color, Warm Assessment and Plan - Assessment and Plan (Free Text) Assessment: (1)Diplopia f/u MRI, MRA of brain 03/08 CT Head: no mass effect or edema, david-white matter differentiation 03/09: Neurology Consult Dr. 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 brainstem infarct should be ruled out with an MRI of the brain and MRA of the head/neck without contrast. Continue aspirin 81 mg daily.Consider eye patch of the right eye to decrease nausea and help relieve symptoms of diplopia until the underlying cause is improved. PT/OT eval is recommended. DVT Px. (2) ESRD (end stage renal disease) on dialysis, secondary to DM2 ( Thursday, Thursday) 03/[address] Carson: no acute need for dialysis 03/09, but will plan for dialysis 03/10. Continue nephrovite 1 tab/day, patient gets hectorol 2mcg dialysis. avoid fleet enemas/magnesium based laxatives continue home medication: furosemide 40mg po bid (on days not on dialysis) (3) DM Hgb A1c 8.6 LDL 98, goal <70 continue with home medication: Humalin 32u sc qAM, 22u sc qPM UA 3+ Protein, Glucose 3+. Negative leukocyte esterase, ketones, nitrates, casts (4) Gout Assessment and Plan: con't home med allopurinol 100mg po qd Status: Chronic (5) Hypertension BP well controlled 03/08 Carotid Doppler, follow up final read 03/08 Echocardiogram: follow up final read 03/08 CXR: mild cardiomegaly, patchy changes in left mid lung zone. mild right hilar prominence, diffuse increased interstitial lung markings, mild venous congestion BNP: 1770 TSH: 1.69 03/08 EKbpm NSR continue with Norvasc 5mg POQD continue with Metoprolol succinate 50mg POQD (6) Hyperlipidemia Triglycerides 207 advise weight loss, aerobic exercise, avoidance of concentrated sugars and alcohol, strict glycemic control consider statin as LDL goal <70 f/u carotid doppler (6) Prophylaxis DVT: heparin 5,000u sc q12 contraindication to SCD: knee brace/osteoarthritis ASA 81 mg POQD GI: Pepcid 20mg po daily Diet: Diabetic diet w/ Moderate Carb Consistent diet discussed with DR. Al Zamora DO PGY1 <Arthur Melendez - Last Filed: 03/09/17 20:25> Objective - Vital Signs/Intake and Output Vital Signs (last 24 hours): Temp Pulse Resp BP Pulse Ox 98 F 65 20 127/77 97 03/09/17 16:33 03/09/17 16:33 03/09/17 16:33 03/09/17 17:02 03/09/17 16:33 Intake and Output: 03/09/17 03/10/17 18:59 06:59 Intake Total 360 Balance 360 - Medications Medications: Current Medications Allopurinol (Zyloprim) 100 mg PO DAILY [facility] Last Admin: 03/09/17 09:54 Dose: 100 mg Amlodipine Besylate (Norvasc) 5 mg PO DAILY [facility] Last Admin: 03/09/17 09:53 Dose: 5 mg Aspirin (Aspirin Chewable) 81 mg PO DAILY [facility] Last Admin: 03/09/17 09:54 Dose: 81 mg Famotidine (Pepcid) 20 mg PO DAILY [facility] Last Admin: 03/09/17 09:54 Dose: 20 mg Furosemide (Lasix) 40 mg PO BID [facility] Last Admin: 03/09/17 17:02 Dose: 40 mg Heparin Sodium (Porcine) (Heparin) 5,000 units SC Q12 [facility] Last Admin: 03/09/17 09:54 Dose: 5,000 units Insulin Human Isoph/Insulin Regular (Novolin 70/30 (70/30 Units/Ml) 10 Ml) 32 units SC QAM [facility] Last Admin: 03/09/17 09:57 Dose: 32 units Insulin Human Isoph/Insulin Regular (Novolin 70/30 (70/30 Units/Ml) 10 Ml) 22 units SC QPM [facility] Last Admin: 03/09/17 18:11 Dose: 22 units Insulin Human Regular (Novolin R) 0 unit SC ACHS [facility] PRN Reason: Protocol Last Admin: 03/09/17 17:02 Dose: Not Given Metoprolol Succinate (Toprol Xl) 50 mg PO DAILY [facility] Last Admin: 03/09/17 10:07 Dose: 50 mg Sevelamer Carbonate (Renvela) 800 mg PO TIDCC [facility] Last Admin: 03/09/17 16:37 Dose: 800 mg Vitamin B Complex/Vit C/Folic Acid (Nephro-Gaby) 1 tab PO 0800 [facility] - Labs Labs: 03/09/17 07:54 03/09/17 07:54 PT 11.8 SECONDS (9.7-12.2) 03/08/17 21:28 INR 1.1 03/08/17 21:28 APTT 34 SECONDS (21-34) 03/08/17 21:28 Attending/Attestation - Attestation I have personally seen and examined this patient.: Yes I have fully participated in the care of the patient.: Yes I have reviewed all pertinent clinical information, including history, physical exam and plan: Yes Notes (Text): 03/09/17 20:16 Patient was seen and examined at 2PM 03/09/17 Exam, assessment and plan were gone over with the resident. Also on ROS still with diplopia that disappears if he covers either eye and leaves the other open I called the office of Opthalmologist Dr. Villatoro (whom the patient was treated with laser and injection treatment in October 2016) [phone] and was provided with his cell phone number [phone] and left him a message on his cell phone. Awaiting performance of MRI Brain, MRA Head/Neck Arthur Melendez D.O.
[2017-03-10 06:28] LABS: BASO # 0.1 K/uL (0.0-0.2); BASO % 1.1 % (0.0-2.0); EOS # 0.3 K/uL (0.0-0.7); EOS % 4.5 % (0.0-4.0); HEMATOCRIT 34.8 % (35.0-51.0); LYMPH # 2.1 K/uL (1.0-4.3); LYMPH % 31.4 % (20.0-40.0); MEAN CELL VOLUME 94.5 fL (80.0-94.0); MEAN CORPUSCULAR HEMOGLOBIN 33.3 pg (27.0-31.0); MEAN CORPUSCULAR HGB CONC 35.2 g/dL (33.0-37.0); MEAN PLATELET VOLUME 8.7 fL (7.2-11.7); MONO # 0.7 K/uL (0.0-0.8); MONO % 10.4 % (0.0-10.0); RED CELL DISTRIBUTION WIDTH 13.4 % (11.5-14.5); WHITE BLOOD COUNT 6.8 K/uL (4.8-10.8)
[2017-03-10 06:33] LABS: POTASSIUM 4.2 mmol/L (3.6-5.2)
[2017-03-10 06:35] LABS: ALB/GLOB RATIO 0.9 (1.0-2.1); BILIRUBIN,TOTAL 0.5 mg/dL (0.2-1.3)
[2017-03-10 06:36] LABS: CALCIUM 9.7 mg/dl (8.6-10.4)
[2017-03-10] MEDS: (Novolin R) Insulin Human Regular 100 units/ml vial SC SCH ×3 (07:42→16:30)
[2017-03-10] MEDS ORDERED: Multivitamin Vitamin B Complex (Nephro-Vite) Tab PO SCH (08:00)
[2017-03-10] MEDS: Metoprolol Succinate 50 mg XL Tab PO SCH (09:19)
[2017-03-10] MEDS: (Novolin 70/30) NPH/Regular 70/30 Units/ml 10 ml vial SC SCH ×2 (10:03→17:52)
--- NOTE | 2017-03-10 11:42 | MRI ---
PROCEDURE: Magnetic Resonance Angiography Brain HISTORY: diplopia COMPARISON: None available. TECHNIQUE: 3D time of flight MR angiography of the intracranial arteries was performed. Rotating maximum intensity projection images were generated. FINDINGS: INTERNAL CAROTID ARTERIES: Unremarkable. The skull base, petrous, cavernous and supraclinoid segments are bilaterally widely patient. ANTERIOR CEREBRAL ARTERIES: Unremarkable. A1 and A2 segments are widely patent. Smaller distal branches unremarkable, as visualized. MIDDLE CEREBRAL ARTERIES: Unremarkable. M1 and M2 segments are widely patent. Perisylvian branches grossly symmetric. POSTERIOR CIRCULATION: Basilar Artery: Widely patent with left dominant vertebrobasilar circulation evident. Distal Vertebral Arteries: Unremarkable. Posterior Cerebral Arteries: Unremarkable. Posterior Inferior Cerebellar Arteries: Unremarkable. ANEURYSM/ VASCULAR MALFORMATIONS: None. OTHER FINDINGS: None. IMPRESSION: Unremarkable MR angiography of the brain.
--- NOTE | 2017-03-10 11:47 | MRI ---
PROCEDURE: MR Angiography of the neck without contrast HISTORY: diplopia COMPARISON: None available. TECHNIQUE: 3D [id number] angiography of the neck was performed. Rotating maximum intensity projection images of the cervical carotid and vertebral arteries were generated. The origins of the common carotid arteries were not visualized, which is a limitation inherent to the non-contrast time of flight technique. FINDINGS: RIGHT CAROTID ARTERIES: Common Carotid Artery: Normal. Carotid Bifurcation: Moderate atherosclerotic plaque is identified at the level of the bulb. Internal Carotid Artery:Less than 50 percent stenosis is appreciated its origin. External Carotid Artery (proximal branches): Normal. LEFT CAROTID ARTERIES: Common Carotid Artery: Normal. Carotid Bifurcation: Moderate atherosclerotic plaques identified at the level of the carotid bulb. Internal Carotid Artery:Less than 50 percent stenosis is appreciated at the origin External Carotid Artery (proximal branches): Normal. VERTEBRAL ARTERIES: Right Vertebral Artery: Persistent origin or possible incidental proximal to mid segment at absence. Left Vertebral Artery: Normal. OTHER FINDINGS: None. IMPRESSION: Less than 50 percent stenosis seen at the bilateral ICA origins due to atherosclerotic plaque at the bilateral carotid bulb regions. Likely origin right vertebral artery throughout the majority of its extent.
--- NOTE | 2017-03-10 13:42 | MRI ---
PROCEDURE: MRI BRAIN WITHOUT CONTRAST HISTORY: diplopia COMPARISON: Head CT without contrast 03/08/2017. TECHNIQUE: Multiplanar, multisequence MR images of the brain were obtained without intravenous contrast enhancement. FINDINGS: HEMORRHAGE: None DWI: No evidence of an acute or early subacute infarction. BRAIN PARENCHYMA: No mass effect or edema. The ventricles sulci and cisterns are stable in overall volume and not appear dramatically increased in the interval. No suspicious extra-axial fluid collections identified in the corticomedullary intrinsic signal is normal above and below the tentorium including the brainstem. Subtle diffuse cerebral atrophy appreciated. VENTRICLES: Unremarkable. No hydrocephalus. CRANIUM: Unremarkable. ORBITS: Grossly unremarkable. PARANASAL SINUSES/MASTOIDS: Clear VASCULAR SYSTEM: Skull base flow voids intact. OTHER FINDINGS: None. IMPRESSION: Subtle diffuse cerebral atrophy. Exam is otherwise unremarkable. No acute intracranial findings.
[2017-03-10 14:30] VITALS: TEMP 98.2
[2017-03-10 14:33] VITALS: RESP 19
--- NOTE | 2017-03-10 15:02 | CP.PCM.PN ---
Subjective - Date & Time of Evaluation Date of Evaluation: 03/10/17 Time of Evaluation: 15:01 - Subjective Subjective: Follow up Nephrology Consultation: Assessment: Stable Diplopia Diabetic chronic Kidney Disease (E11.22) Hypertensive Chronic Kidney Disease (I12.0) End stage renal disease (N18.6) dependence on hemodialysis (Z99.2) (TTS) via AVF Hyperphosphatemia (E83.39), Secondary Hyperparathyroidism (E21.1), HTN (I12.0) Plan: Will plan for dialysis today. Continue with Nephrovite 1 tab/day. Continue with phos binders home dose he gets hectorol 2 mcg dialysis. Last PTH level 225 BP control with meds as ordered. Patient not on RAAS carol as BP controlled. d /c norvasc as BP on low side. Glycemic control, Dialysis consistent diet Further work up/management as per primary team Dose meds/antibiotics (if needed) for ESRD status. Avoid fleets enema/magnesium based laxatives. Thanks for allowing me to participate in care of your patient. Will follow patient with you. Please call if any Qs Dr Taqueria Carson Office: [phone] Chief Complaint; double vision HPI: Pt is a 51 y/o M with hx of ESRD on hemodialysis (TTS) via AVF, last dialysis sat, chronic anemia, hyperphosphatemia, secondary hyperparathyroidism, Diabetes Mellitus, hypertension presented with complaints of double vision for last 1 day. ROS: Denies chest pain, palpitation, shortness of breath, leg swelling. no headache/weakness Physical Examination: General Appearance: Comfortable, in no acute respiratory distress, co-operative . Vitals reviewed and noted as below Lungs: Normal respiratory rate/effort. Breath sounds bilateral equal and clear Heart: Normal rate. s1s2 normal. No rub or gallop. Extremities: no edema. No varicose veins Neurological: Patient is alert, awake and oriented to person, place and time. No focal deficit. Strength bilateral appropriate and equal Skin: Warm and dry. Normal turgor. No rash. Palpitation: Normal elasticity for age Abdomen: Abdomen is soft. Bowel sounds +. There is no abdominal tenderness, no guarding/rigidity or organomegaly Psych: normal insight and normal affect/mood MSK: no joint tenderness or swelling. Digits and nails normal, no deformity : kidney or bladder not palpable Access: AVF Labs/imaging reviewed. Past medical history, past surgical history, family history, social history, allergy reviewed and noted as below Family Hx: no hx of CKD. Non contributory Objective - Vital Signs/Intake and Output Vital Signs (last 24 hours): Temp Pulse Resp BP Pulse Ox 98.2 F 70 19 102/69 97 03/10/17 13:50 03/10/17 13:50 03/10/17 13:50 03/10/17 14:20 03/10/17 13:50 Intake and Output: 03/10/17 03/10/17 06:59 18:59 Intake Total 250 450 Balance 250 450 - Medications Medications: Current Medications Allopurinol (Zyloprim) 100 mg PO DAILY [facility] Last Admin: 03/10/17 10:03 Dose: 100 mg Aspirin (Aspirin Chewable) 81 mg PO DAILY [facility] Last Admin: 03/10/17 09:18 Dose: Not Given Famotidine (Pepcid) 20 mg PO DAILY [facility] Last Admin: 03/10/17 10:03 Dose: 20 mg Furosemide (Lasix) 40 mg PO BID [facility] Last Admin: 03/10/17 09:18 Dose: Not Given Heparin Sodium (Porcine) (Heparin) 5,000 units SC Q12 [facility] Last Admin: 03/10/17 09:18 Dose: Not Given Insulin Human Isoph/Insulin Regular (Novolin 70/30 (70/30 Units/Ml) 10 Ml) 32 units SC QAM [facility] Last Admin: 03/10/17 10:03 Dose: 32 units Insulin Human Isoph/Insulin Regular (Novolin 70/30 (70/30 Units/Ml) 10 Ml) 22 units SC QPM [facility] Last Admin: 03/09/17 18:11 Dose: 22 units Insulin Human Regular (Novolin R) 0 unit SC ACHS [facility] PRN Reason: Protocol Last Admin: 03/10/17 11:47 Dose: 6 unit Lorazepam (Ativan) 1 mg IVP ONCE PRN PRN Reason: Anxiety Last Admin: 03/10/17 11:48 Dose: 1 mg Metoprolol Succinate (Toprol Xl) 50 mg PO DAILY [facility] Last Admin: 03/10/17 09:19 Dose: Not Given Sevelamer Carbonate (Renvela) 800 mg PO TIDCC [facility] Last Admin: 03/10/17 11:46 Dose: 800 mg Vitamin B Complex/Vit C/Folic Acid (Nephro-Gaby) 1 tab PO 0800 [facility] Last Admin: 03/10/17 07:57 Dose: 1 tab - Labs Labs: 03/10/17 06:14 03/10/17 06:14 PT 11.8 SECONDS (9.7-12.2) 03/08/17 21:28 INR 1.1 03/08/17 21:28 APTT 34 SECONDS (21-34) 03/08/17 21:28
--- NOTE | 2017-03-10 15:40 | CP.PCM.DIS ---
Addendum entered and electronically signed by Piedad Zamora DO 03/10/17 16:12: Hospital course 03/08 CT Head: no mass effect or edema, david-white matter differentiation 03/09: Neurology Consult Dr. 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 brainstem infarct should be ruled out with an MRI of the brain and MRA of the head/neck without contrast. Continue aspirin 81 mg daily.Consider eye patch of the right eye to decrease nausea and help relieve symptoms of diplopia until the underlying cause is improved. PT/OT eval is recommended. DVT Px. Discharge Summary (1)Diplopia follow up with Dr. Villatoro as soon as possible for treatment (2) ESRD (end stage renal disease) on dialysis, secondary to DM2 ( Thursday, Thursday) continue with Dr. Hill in [facility] (3) DM, Hgb A1c 8.6 follow up with primary care doctor. LDL 98, goal <70 continue with home medication, no new prescriptions written. Patient stated he has enough at home. UA 3+ Protein, Glucose 3+. Negative leukocyte esterase, ketones, nitrates, casts on admission. Follow up with [facility]. (4) Gout continue home med allopurinol 100mg po qd (5) Hypertension, BP well controlled on home medication. Lasix decreased to 20mg POBID 03/08 CXR: mild cardiomegaly, patchy changes in left mid lung zone. mild right hilar prominence, diffuse increased interstitial lung markings, mild venous congestion BNP: 1770 TSH: 1.69 03/08 EKbpm NSR continue with Norvasc 5mg POQD continue with Metoprolol succinate 50mg POQD (6) Hyperlipidemia, Triglycerides 207, advise weight loss, aerobic exercise, avoidance of concentrated sugars and alcohol, strict glycemic control consider statin as LDL goal <70 (6) Prophylaxis, Patient sent home with ASA 81 mg POQD DVT ppx during hospital stay 5000u SC heparin and GI prophylaxis: Pepcid 20mg po daily Diet: Diabetic diet w/ Moderate Carb Consistent diet discussed with DR. Al Zamora DO PGY1 Addendum entered and electronically signed by Piedad Zamora DO 03/10/17 15:54: physical exam: - Constitutional Appears: Non-toxic - Head Exam Head Exam: NORMAL INSPECTION - Eye Exam Eye Exam: EOMI, Normal appearance. absent: Nystagmus, Periorbital tenderness Pupil Exam: NORMAL ACCOMODATION patient complains of double vision upon moving eyes laterally. - ENT Exam ENT Exam: Mucous Membranes Moist - Neck Exam Neck Exam: Full ROM - Cardiovascular Exam Cardiovascular Exam: REGULAR RHYTHM, +S1, +S2 - GI/Abdominal Exam GI & Abdominal Exam: Soft. absent: Tenderness - Extremities Exam Extremities Exam: Full ROM, Normal Inspection. absent: Pedal Edema - Neurological Exam Neurological Exam: Alert, Awake, Oriented x3 - Psychiatric Exam Psychiatric exam: Normal Affect, Normal Mood - Skin Skin Exam: Dry, Intact, Normal Color, Warm Addendum entered and electronically signed by Piedad Zamora DO 03/10/17 15:52: wear eye patch on right eye continue dialysis at [facility] with Dr. Hill Original Note: <Piedad Zamora - Last Filed: 03/10/17 15:50> Provider - Provider Date of Admission: 03/08/17 22:31 Attending physician: Luis Brown MD Consults: Neurology : Dr. Beyer Nephrology: Dr. Hill Time Spent in preparation of Discharge (in minutes): 35 Hospital Course - Lab Results Lab Results: Most Recent Lab Values WBC 6.8 K/uL (4.8-10.8) 03/10/17 06:14 RBC 3.68 Mil/uL (4.40-5.90) L 03/10/17 06:14 Hgb 12.2 g/dL (12.0-18.0) 03/10/17 06:14 Hct 34.8 % (35.0-51.0) L 03/10/17 06:14 MCV 94.5 fL (80.0-94.0) H 03/10/17 06:14 MCH 33.3 pg (27.0-31.0) H 03/10/17 06:14 MCHC 35.2 g/dL (33.0-37.0) 03/10/17 06:14 RDW 13.4 % (11.5-14.5) 03/10/17 06:14 Plt Count 178 K/uL (130-400) 03/10/17 06:14 MPV 8.7 fL (7.2-11.7) 03/10/17 06:14 Neut % (Auto) 52.6 % (50.0-75.0) 03/10/17 06:14 Lymph % (Auto) 31.4 % (20.0-40.0) 03/10/17 06:14 [place] % (Auto) 10.4 % (0.0-10.0) H 03/10/17 06:14 Eos % (Auto) 4.5 % (0.0-4.0) H 03/10/17 06:14 Baso % (Auto) 1.1 % (0.0-2.0) 03/10/17 06:14 Neut # 3.6 K/uL (1.8-7.0) 03/10/17 06:14 Lymph # 2.1 K/uL (1.0-4.3) 03/10/17 06:14 [place] # 0.7 K/uL (0.0-0.8) 03/10/17 06:14 Eos # 0.3 K/uL (0.0-0.7) 03/10/17 06:14 Baso # 0.1 K/uL (0.0-0.2) 03/10/17 06:14 PT 11.8 SECONDS (9.7-12.2) 03/08/17 21:28 INR 1.1 03/08/17 21:28 APTT 34 SECONDS (21-34) 03/08/17 21:28 Sodium 137 mmol/L (132-148) 03/10/17 06:14 Potassium 4.2 mmol/L (3.6-5.2) 03/10/17 06:14 Chloride 94 mmol/L (98-107) L 03/10/17 06:14 Carbon Dioxide 25 mmol/L (22-30) 03/10/17 06:14 Anion Gap 22 (10-20) H 03/10/17 06:14 BUN 75 mg/dL (9-20) H 03/10/17 06:14 Creatinine 10.2 MG/DL (0.8-1.5) H* 03/10/17 06:14 Est GFR ( Amer) 7 03/10/17 06:14 Est GFR (Non-Af Amer) 5 03/10/17 06:14 POC Glucose (mg/dL) 346 mg/dL (65-110) H 03/10/17 11:02 Random Glucose 124 mg/dL (75-110) H 03/10/17 06:14 Hemoglobin A1c 8.6 % (4.2-6.5) H 03/08/17 21:28 Calcium 9.7 mg/dl (8.6-10.4) 03/10/17 06:14 Total Bilirubin 0.5 mg/dL (0.2-1.3) 03/10/17 06:14 AST 27 U/L (17-59) 03/10/17 06:14 ALT 45 U/L (21-72) 03/10/17 06:14 Alkaline Phosphatase 105 U/L (38-126) 03/10/17 06:14 Troponin I < 0.0120 ng/mL (0.00-0.120) 03/08/17 21:28 NT-Pro-B Natriuret Pep 1770 pg/mL (0-900) H 03/08/17 21:28 Total Protein 8.0 g/dL (6.3-8.3) 03/10/17 06:14 Albumin 3.8 g/dL (3.5-5.0) 03/10/17 06:14 Globulin 4.2 gm/dL (2.2-3.9) H 03/10/17 06:14 Albumin/Globulin Ratio 0.9 (1.0-2.1) L 03/10/17 06:14 Triglycerides 207 mg/dL (0-149) H D 03/08/17 21:28 Cholesterol 193 mg/dL (0-199) 03/08/17 21:28 LDL Cholesterol Direct 98 mg/dL (0-129) 03/08/17 21:28 HDL Cholesterol 38 mg/dL (30-70) 03/08/17 21:28 TSH 3rd Generation 1.69 mIU/L (0.46-4.68) 03/09/17 07:54 Urine Color Yellow (YELLOW) 03/09/17 07:00 Urine Clarity Clear (Clear) 03/09/17 07:00 Urine pH 7.0 (5.0-8.0) 03/09/17 07:00 Ur Specific [place] 1.016 (1.003-1.030) 03/09/17 07:00 Urine Protein 3+ mg/dL (NEGATIVE) H 03/09/17 07:00 Urine Glucose (UA) 3+ mg/dL (Normal) H 03/09/17 07:00 Urine Ketones Negative mg/dL (NEGATIVE) 03/09/17 07:00 Urine Blood Negative (NEGATIVE) 03/09/17 07:00 Urine Nitrate Negative (NEGATIVE) 03/09/17 07:00 Urine Bilirubin Negative (NEGATIVE) 03/09/17 07:00 Urine Urobilinogen Normal mg/dL (0.2-1.0) 03/09/17 07:00 Ur Leukocyte Esterase Neg Jyoti/uL (Negative) 03/09/17 07:00 Urine WBC (Auto) < 1 /hpf (0-5) 03/09/17 07:00 Urine RBC (Auto) < 1 /hpf (0-3) 03/09/17 07:00 - Hospital Course Hospital Course: Discharge Summary for Dr. Melendez 51 yo M with a PMHx of ESRD, DM2, HTN, Gout, bilateral cataracts, presented to the ED for first time instance of diplopia which began suddenly this afternooon while sitting on the couch watching television. He took a nap but the diplopia was still present thus decided to come to the ED. He says closing either the right or left eye resolves the diplopia. He admits to feeling "pressure" in his ears bilaterally that began 1 weeks ago. He denies any other symptoms. He denies focal deficits, slurred speech, migraine, weakness, nausea, vomiting, numbness/tingling. He says he seeing an opthamologist for "retinal issues" and gets treatment every few months with his last treatment in 10/2016. Patient with insurance issues and hasn't taken home medications for last 1 month. 03/09 MRI Brain: diffuse cerebral atrophy. exam is unremarkable. 03/09 MRA Brain: unremarkable 03/09 MRA Neck: <50 stenosis at bilateral ICA origin due to atherosclerotic plaque at bilateral carotid bulb Throughout stay, patient notes no worsening of symptoms. Denies eye pain. Denies worsening of vision. Patient is seen closing right eye to see better throughout hospital stay. Patient was discharged with instructions to see Dr. Villatoro as soon as possible for treatment of diplopia. Patient was advised to follow up with primary care doctor and continue dialysis with Dr. Hill on Thursday, and Thursday as ordered. Patient was instructed not to take calcitriol. - Date & Time of H&P Date of H&P: 03/10/17 Time of H&P: 15:41 Discharge Exam - Head Exam Head Exam: NORMAL INSPECTION Discharge Plan - Discharge Medications Prescriptions: Allopurinol [Zyloprim] 100 mg PO DAILY 30 Days tab Aspirin [Aspirin Chewable] 81 mg PO DAILY 30 Days chew Atorvastatin [Lipitor] 10 mg PO HS 30 Days tab Furosemide [Lasix] 20 mg PO BID #60 tab Metoprolol Succinate [Toprol XL] 50 mg PO DAILY 30 Days tab Sevelamer Carbonate [Renvela] 800 mg PO TIDCC 30 Days tab - Follow Up Plan Condition: FAIR Disposition: HOME/ ROUTINE Instructions: Allopurinol (By mouth), Metoprolol (By mouth), Furosemide (By mouth), Aspirin (By mouth), Atorvastatin (By mouth), Sevelamer (By mouth), Heart Failure (DC), Diplopia (DC) Additional Instructions: follow up with Dr. Villatoro outpatient for ophthalmology treatments as soon as possible. preferably before scheduled appointment during March 23 continue with diabetes medication, take medications as prescribed. follow up with primary care doctor in 1 week for further evaluation of diplopia. follow up with Dr. Thorpe in one week follow up with Dr. Hill for dialysis in [place] and continue with dialysis Thursday, , Thursday schedule at [facility] discontinue Calcitriol per [facility]. Referrals: Sher Hill MD [Staff Provider] - Jocy Thorpe MD [Staff Provider] - <Arthur Melendez - Last Filed: 03/10/17 19:30> Provider - Provider Date of Admission: 03/08/17 22:31 Attending physician: Luis Brown MD Hospital Course - Lab Results Lab Results: Most Recent Lab Values WBC 6.8 K/uL (4.8-10.8) 03/10/17 06:14 RBC 3.68 Mil/uL (4.40-5.90) L 03/10/17 06:14 Hgb 12.2 g/dL (12.0-18.0) 03/10/17 06:14 Hct 34.8 % (35.0-51.0) L 03/10/17 06:14 MCV 94.5 fL (80.0-94.0) H 03/10/17 06:14 MCH 33.3 pg (27.0-31.0) H 03/10/17 06:14 MCHC 35.2 g/dL (33.0-37.0) 03/10/17 06:14 RDW 13.4 % (11.5-14.5) 03/10/17 06:14 Plt Count 178 K/uL (130-400) 03/10/17 06:14 MPV 8.7 fL (7.2-11.7) 03/10/17 06:14 Neut % (Auto) 52.6 % (50.0-75.0) 03/10/17 06:14 Lymph % (Auto) 31.4 % (20.0-40.0) 03/10/17 06:14 Sanders % (Auto) 10.4 % (0.0-10.0) H 03/10/17 06:14 Eos % (Auto) 4.5 % (0.0-4.0) H 03/10/17 06:14 Baso % (Auto) 1.1 % (0.0-2.0) 03/10/17 06:14 Neut # 3.6 K/uL (1.8-7.0) 03/10/17 06:14 Lymph # 2.1 K/uL (1.0-4.3) 03/10/17 06:14 Sanders # 0.7 K/uL (0.0-0.8) 03/10/17 06:14 Eos # 0.3 K/uL (0.0-0.7) 03/10/17 06:14 Baso # 0.1 K/uL (0.0-0.2) 03/10/17 06:14 PT 11.8 SECONDS (9.7-12.2) 03/08/17 21:28 INR 1.1 03/08/17 21:28 APTT 34 SECONDS (21-34) 03/08/17 21:28 Sodium 137 mmol/L (132-148) 03/10/17 06:14 Potassium 4.2 mmol/L (3.6-5.2) 03/10/17 06:14 Chloride 94 mmol/L (98-107) L 03/10/17 06:14 Carbon Dioxide 25 mmol/L (22-30) 03/10/17 06:14 Anion Gap 22 (10-20) H 03/10/17 06:14 BUN 75 mg/dL (9-20) H 03/10/17 06:14 Creatinine 10.2 MG/DL (0.8-1.5) H* 03/10/17 06:14 Est GFR ( Amer) 7 03/10/17 06:14 Est GFR (Non-Af Amer) 5 03/10/17 06:14 POC Glucose (mg/dL) 78 mg/dL (65-110) 03/10/17 16:24 Random Glucose 124 mg/dL (75-110) H 03/10/17 06:14 Hemoglobin A1c 8.6 % (4.2-6.5) H 03/08/17 21:28 Calcium 9.7 mg/dl (8.6-10.4) 03/10/17 06:14 Total Bilirubin 0.5 mg/dL (0.2-1.3) 03/10/17 06:14 AST 27 U/L (17-59) 03/10/17 06:14 ALT 45 U/L (21-72) 03/10/17 06:14 Alkaline Phosphatase 105 U/L (38-126) 03/10/17 06:14 Troponin I < 0.0120 ng/mL (0.00-0.120) 03/08/17 21:28 NT-Pro-B Natriuret Pep 1770 pg/mL (0-900) H 03/08/17 21:28 Total Protein 8.0 g/dL (6.3-8.3) 03/10/17 06:14 Albumin 3.8 g/dL (3.5-5.0) 03/10/17 06:14 Globulin 4.2 gm/dL (2.2-3.9) H 03/10/17 06:14 Albumin/Globulin Ratio 0.9 (1.0-2.1) L 03/10/17 06:14 Triglycerides 207 mg/dL (0-149) H D 03/08/17 21:28 Cholesterol 193 mg/dL (0-199) 03/08/17 21:28 LDL Cholesterol Direct 98 mg/dL (0-129) 03/08/17 21:28 HDL Cholesterol 38 mg/dL (30-70) 03/08/17 21:28 TSH 3rd Generation 1.69 mIU/L (0.46-4.68) 03/09/17 07:54 Urine Color Yellow (YELLOW) 03/09/17 07:00 Urine Clarity Clear (Clear) 03/09/17 07:00 Urine pH 7.0 (5.0-8.0) 03/09/17 07:00 Ur Specific [place] 1.016 (1.003-1.030) 03/09/17 07:00 Urine Protein 3+ mg/dL (NEGATIVE) H 03/09/17 07:00 Urine Glucose (UA) 3+ mg/dL (Normal) H 03/09/17 07:00 Urine Ketones Negative mg/dL (NEGATIVE) 03/09/17 07:00 Urine Blood Negative (NEGATIVE) 03/09/17 07:00 Urine Nitrate Negative (NEGATIVE) 03/09/17 07:00 Urine Bilirubin Negative (NEGATIVE) 03/09/17 07:00 Urine Urobilinogen Normal mg/dL (0.2-1.0) 03/09/17 07:00 Ur Leukocyte Esterase Neg Jyoti/uL (Negative) 03/09/17 07:00 Urine WBC (Auto) < 1 /hpf (0-5) 03/09/17 07:00 Urine RBC (Auto) < 1 /hpf (0-3) 03/09/17 07:00 Attending/Attestation - Attestation I have personally seen and examined this patient.: Yes I have fully participated in the care of the patient.: Yes I have reviewed all pertinent clinical information, including history, physical exam and plan: Yes Notes (Text): 03/10/17 19:25 Patient was seen and examined shortly after resident. Patient stated that he had enough of his Insulin NPH Kwikpen and Insulin NPH/ Reg 70/30 at home In addition to the Rx provided above, he was also provided with Rx for Norvasc 5 mg PO 1x/day as well as Rx for Right Eye Patch. I verbally instructed patient to follow up with his PMD Dr. Thorpe at the [facility] in 7 days, follow up with [facility] as scheduled on , schedule follow up with Opthalmologist Dr. Villatoro as soon as possible ( I spoke with Dr. Villatoro via phone, updated him on MRI/MRA findings, and Dr. Villatoro stated that patient could follow up with him as scheduled on 03/23 or sooner if desired ). Arthur Melendez D.O.
--- NOTE | 2017-03-10 15:41 | VASCLAB ---
PROCEDURE: HISTORY: Diplopia COMPARISON: None available. TECHNIQUE: Grayscale and duplex Doppler evaluation of the cervical carotid and vertebral arteries were performed. The common carotid, carotid bifurcations and cervical Internal Carotid Artery (ICA) and proximal External Carotid Artery (ECA) were evaluated. The vertebral arteries were evaluated for gross patency and flow direction. Report prepared by Brian Gregg, BS, RVT FINDINGS: RIGHT CAROTID ARTERIES: 1. Common Carotid Artery: No significant focal plaque formation of the right common carotid artery. Maximum Peak Systolic velocity: 101 cm/sec: End-diastolic velocity 13 cm/sec. 2. Carotid Bifurcation: Heterogeneous plaque formation. Maximum Peak Systolic velocity: 71 cm/sec: End-diastolic velocity 13 cm/sec. 3. Internal Carotid Artery: Plaque description: Heterogeneous 3.1. Proximal Segment: Peak systolic velocity 116 cm/sec: End-diastolic velocity 29 cm/sec - % stenosis 0-15% 3.2. Middle Segment: Peak systolic velocity 80 cm/sec: End-diastolic velocity 23 cm/sec - % stenosis 0-15% 3.3. Distal Segment: Peak systolic velocity 51 cm/sec: End-diastolic velocity 17 cm/sec - % stenosis 0-15% 4. External Carotid Artery: No significant focal plaque formation. Peak systolic velocity 95 cm/sec 5. ICA/CCA Ratio: 1.5 LEFT CAROTID ARTERIES: 1. Common Carotid Artery: No significant focal plaque formation of the left common carotid artery. Maximum Peak Systolic velocity: 113 cm/sec: End-diastolic velocity 20 cm/sec. 2. Carotid Bifurcation: Heterogeneous plaque formation. Maximum Peak Systolic velocity: 76 cm/sec: End-diastolic velocity 15 cm/sec. 3. Internal Carotid Artery: Plaque description: Heterogeneous 3.1. Proximal Segment: Peak systolic velocity 82 cm/sec: End-diastolic velocity 24 cm/sec - % stenosis 0-15% 3.2. Middle Segment: Peak systolic velocity 88 cm/sec: End-diastolic velocity 24 cm/sec - % stenosis 0-15% 3.3. Distal Segment: Peak systolic velocity 59 cm/sec: End-diastolic velocity 24 cm/sec - % stenosis 0-15% 4. External Carotid Artery: No significant focal plaque formation. Peak systolic velocity 75 cm/sec 5. ICA/CCA Ratio: 1.0 VERTEBRAL ARTERIES: 1. Right Vertebral Artery: The right vertebral artery flow direction is antegrade. 2. Left Vertebral Artery: The left vertebral artery flow direction is antegrade. OTHER FINDINGS: 1. Right Brachial Blood pressure: 180 mmHg. 2. Left Brachial Blood pressure: Unable to obtain/ avf IMPRESSION: RIGHT: Duplex scan does not suggest hemodynamically significant stenosis of the right extracranial carotid arteries. LEFT: Duplex scan does not suggest hemodynamically significant stenosis of the left extracranial carotid arteries.
--- NOTE | 2017-03-10 16:10 | CP.PCM.DIS ---
Provider - Provider Date of Admission: 03/08/17 22:31 Attending physician: Luis Brown MD Hospital Course - Lab Results Lab Results: Most Recent Lab Values WBC 6.8 K/uL (4.8-10.8) 03/10/17 06:14 RBC 3.68 Mil/uL (4.40-5.90) L 03/10/17 06:14 Hgb 12.2 g/dL (12.0-18.0) 03/10/17 06:14 Hct 34.8 % (35.0-51.0) L 03/10/17 06:14 MCV 94.5 fL (80.0-94.0) H 03/10/17 06:14 MCH 33.3 pg (27.0-31.0) H 03/10/17 06:14 MCHC 35.2 g/dL (33.0-37.0) 03/10/17 06:14 RDW 13.4 % (11.5-14.5) 03/10/17 06:14 Plt Count 178 K/uL (130-400) 03/10/17 06:14 MPV 8.7 fL (7.2-11.7) 03/10/17 06:14 Neut % (Auto) 52.6 % (50.0-75.0) 03/10/17 06:14 Lymph % (Auto) 31.4 % (20.0-40.0) 03/10/17 06:14 [place] % (Auto) 10.4 % (0.0-10.0) H 03/10/17 06:14 Eos % (Auto) 4.5 % (0.0-4.0) H 03/10/17 06:14 Baso % (Auto) 1.1 % (0.0-2.0) 03/10/17 06:14 Neut # 3.6 K/uL (1.8-7.0) 03/10/17 06:14 Lymph # 2.1 K/uL (1.0-4.3) 03/10/17 06:14 [place] # 0.7 K/uL (0.0-0.8) 03/10/17 06:14 Eos # 0.3 K/uL (0.0-0.7) 03/10/17 06:14 Baso # 0.1 K/uL (0.0-0.2) 03/10/17 06:14 PT 11.8 SECONDS (9.7-12.2) 03/08/17 21:28 INR 1.1 03/08/17 21:28 APTT 34 SECONDS (21-34) 03/08/17 21:28 Sodium 137 mmol/L (132-148) 03/10/17 06:14 Potassium 4.2 mmol/L (3.6-5.2) 03/10/17 06:14 Chloride 94 mmol/L (98-107) L 03/10/17 06:14 Carbon Dioxide 25 mmol/L (22-30) 03/10/17 06:14 Anion Gap 22 (10-20) H 03/10/17 06:14 BUN 75 mg/dL (9-20) H 03/10/17 06:14 Creatinine 10.2 MG/DL (0.8-1.5) H* 03/10/17 06:14 Est GFR ( Amer) 7 03/10/17 06:14 Est GFR (Non-Af Amer) 5 03/10/17 06:14 POC Glucose (mg/dL) 346 mg/dL (65-110) H 03/10/17 11:02 Random Glucose 124 mg/dL (75-110) H 03/10/17 06:14 Hemoglobin A1c 8.6 % (4.2-6.5) H 03/08/17 21:28 Calcium 9.7 mg/dl (8.6-10.4) 03/10/17 06:14 Total Bilirubin 0.5 mg/dL (0.2-1.3) 03/10/17 06:14 AST 27 U/L (17-59) 03/10/17 06:14 ALT 45 U/L (21-72) 03/10/17 06:14 Alkaline Phosphatase 105 U/L (38-126) 03/10/17 06:14 Troponin I < 0.0120 ng/mL (0.00-0.120) 03/08/17 21:28 NT-Pro-B Natriuret Pep 1770 pg/mL (0-900) H 03/08/17 21:28 Total Protein 8.0 g/dL (6.3-8.3) 03/10/17 06:14 Albumin 3.8 g/dL (3.5-5.0) 03/10/17 06:14 Globulin 4.2 gm/dL (2.2-3.9) H 03/10/17 06:14 Albumin/Globulin Ratio 0.9 (1.0-2.1) L 03/10/17 06:14 Triglycerides 207 mg/dL (0-149) H D 03/08/17 21:28 Cholesterol 193 mg/dL (0-199) 03/08/17 21:28 LDL Cholesterol Direct 98 mg/dL (0-129) 03/08/17 21:28 HDL Cholesterol 38 mg/dL (30-70) 03/08/17 21:28 TSH 3rd Generation 1.69 mIU/L (0.46-4.68) 03/09/17 07:54 Urine Color Yellow (YELLOW) 03/09/17 07:00 Urine Clarity Clear (Clear) 03/09/17 07:00 Urine pH 7.0 (5.0-8.0) 03/09/17 07:00 Ur Specific [place] 1.016 (1.003-1.030) 03/09/17 07:00 Urine Protein 3+ mg/dL (NEGATIVE) H 03/09/17 07:00 Urine Glucose (UA) 3+ mg/dL (Normal) H 03/09/17 07:00 Urine Ketones Negative mg/dL (NEGATIVE) 03/09/17 07:00 Urine Blood Negative (NEGATIVE) 03/09/17 07:00 Urine Nitrate Negative (NEGATIVE) 03/09/17 07:00 Urine Bilirubin Negative (NEGATIVE) 03/09/17 07:00 Urine Urobilinogen Normal mg/dL (0.2-1.0) 03/09/17 07:00 Ur Leukocyte Esterase Neg Jyoti/uL (Negative) 03/09/17 07:00 Urine WBC (Auto) < 1 /hpf (0-5) 03/09/17 07:00 Urine RBC (Auto) < 1 /hpf (0-3) 03/09/17 07:00 Discharge Exam - Head Exam Head Exam: NORMAL INSPECTION Discharge Plan - Discharge Medications Prescriptions: Allopurinol [Zyloprim] 100 mg PO DAILY 30 Days tab Aspirin [Aspirin Chewable] 81 mg PO DAILY 30 Days chew Atorvastatin [Lipitor] 10 mg PO HS 30 Days tab Furosemide [Lasix] 20 mg PO BID #60 tab Metoprolol Succinate [Toprol XL] 50 mg PO DAILY 30 Days tab Sevelamer Carbonate [Renvela] 800 mg PO TIDCC 30 Days tab - Follow Up Plan Condition: FAIR Disposition: HOME/ ROUTINE Additional Instructions: follow up with Dr. Villatoro outpatient for ophthalmology treatments as soon as possible. preferably before scheduled appointment during March 23 continue with diabetes medication, take medications as prescribed. follow up with primary care doctor in 1 week for further evaluation of diplopia. follow up with Dr. Thorpe in one week follow up with Dr. Hill for dialysis in [place] and continue with dialysis Thursday, , Thursday schedule at [facility] discontinue Calcitriol per [employer] Game.
[2017-03-10] MEDS ORDERED: Influenza Vaccine 60 mcg/0.5 mL SYR (4YR UP) IM ONE (17:45)
[2017-03-10 17:50] VITALS: BP 109/70; PULSE 64; O2SAT 96
--- NOTE | 2017-03-10 18:12 | CARD ---
APPROVED REPORT EXAM: Two-dimensional and M-mode echocardiogram with Doppler and color Doppler. Other Information Quality : GoodRhythm : NSR INDICATION Chest Pain Congestive Heart Failure RISK FACTORS Hypertension Hyperlipidemia Diabetes 2D DIMENSIONS IVSd1.1 (0.7-1.1cm)LVDd4.2 (3.9-5.9cm) PWd1.0 (0.7-1.1cm)LVDs3.0 (2.5-4.0cm) FS (%) 28.4 %LVEF (%)55.3 (>50%) M-Mode DIMENSIONS Left Atrium (MM)3.62 (2.5-4.0cm)Aortic Root3.59 (2.2-3.7cm) Aortic Cusp Exc.2.36 (1.5-2.0cm) Mitral Valve MV E Skdchzry52.3cm/sMV A Rxeylfga43.6cm/sE/A ratio1.0 TDI E/Lateral E'0.0E/Medial E'0.0 Tricuspid Valve TR Peak Dnmdlavp660pz/sTR Peak Gr.[id number] LEFT VENTRICLE The left ventricle is normal size. There is normal left ventricular wall thickness. The left ventricular function is normal. The left ventricular ejection fraction is within the normal range. There is normal LV segmental wall motion. The left ventricular diastolic function is normal. No left ventricle thrombus noted on this study. There is no ventricular septal defect visualized. There is no left ventricular aneurysm. There is no mass noted in the left ventricle. RIGHT VENTRICLE The right ventricle is normal size. There is normal right ventricular wall thickness. The right ventricular systolic function is normal. ATRIA The left atrium is mildly dilated. The right atrium size is normal. The interatrial septum is intact with no evidence for an atrial septal defect. AORTIC VALVE The aortic valve is normal in structure. No aortic regurgitation is present. There is no aortic valvular stenosis. There is no aortic valvular vegetation. MITRAL VALVE The mitral valve is normal in structure. There is no evidence of mitral valve prolapse. There is no mitral valve stenosis. Mitral regurgitation is mild. TRICUSPID VALVE The tricuspid valve is normal in structure. PULMONIC VALVE The pulmonary valve is normal in structure. There is trace to mild pulmonic valvular regurgitation. GREAT VESSELS The aortic root is normal in size. The ascending aorta is normal in size. The pulmonary artery is normal. The IVC is normal in size and collapses >50% with inspiration. PERICARDIAL EFFUSION There is no pericardial effusion. <Conclusion> The left atrium is mildly dilated. Mitral regurgitation is mild.lvef is 55%.
--- NOTE | 2017-03-10 18:13 | CARD ---
APPROVED REPORT EKG Measurement Heart [id number] [place] [id number] <Conclusion> Normal sinus rhythm Nonspecific T wave abnormality Abnormal ECG
== END 2017-03-10 19:25 | disposition home or self-care (01) ==
LOC: C.ER 20:20 → C.9E 22:31 → C.3T 22:58
PROVIDERS: ADMIT Family Medicine; ATTEND Family Medicine
DX: H53.2 Diplopia (principal); I50.9 Heart failure, unspecified; E11.22 Type 2 diabetes mellitus with diabetic chronic kidney disease; Z79.4 Long term (current) use of insulin; E78.00 Pure hypercholesterolemia, unspecified; I13.2 Hypertensive heart and chronic kidney disease with heart failure and with stage 5 chronic kidney disease, or end stage renal disease; N18.6 End stage renal disease; Z99.2 Dependence on renal dialysis; M10.9 Gout, unspecified; M17.9 Osteoarthritis of knee, unspecified; N25.81 Secondary hyperparathyroidism of renal origin; E83.39 Other disorders of phosphorus metabolism; E87.8 Other disorders of electrolyte and fluid balance, not elsewhere classified
CPT/HCPCS: 36415; 70450; 70544; 70547; 70551; 71010; 80053; 80061; 81001; 82948; 83036; 83880; 84443; 84484; 85025; 85610; 85730; 90674; 93005; 93306; 93880; 97110; 97162; 99285; G0257; G0378; G8978; G8979; J1644; J2060

== ENCOUNTER → 2017-05-27 | Day surgery (SDC) | payer MEDICARE, BC ==
[2017-05-22 13:32] VITALS: BMI 29.2
[~2017-05-27] MED LIST: Iodixanol 320 MG/ML 100 ML BOTTLE IV ONE; Iodixanol 320 MG/ML 200 ML BOTTLE IV ONE; Lidocaine 2% Inj (20ml) ONE; Midazolam 2 MG/2 ML VIAL ONE; Propofol 10 mg/ml Inj (20 ML) ONE
[2017-05-27 08:37] LABS: CALCIUM 9.1 mg/dl (8.6-10.4); POTASSIUM 5.1 mmol/L (3.6-5.2)
--- NOTE | 2017-05-27 09:12 | PCM.SURG1 ---
Surgeon's Initial Post Op Note - Surgeon's Notes Surgeon: alphonse Dictaphone Typist: 0 Type of Anesthesia: IV Sedation Anesthesia Administered By: [email or web address] Pre-Operative Diagnosis: malfunction avf left arm Operative Findings: no evidence of significant stenosis Post-Operative Diagnosis: same Operation Performed: fistulogram left arm Specimen/Specimens Removed: 0 Estimated Blood Loss: EBL {In ML}: 5 Blood Products Given: N/A Drains Used: No Drains Post-Op Condition: Good Date of Surgery/Procedure: 05/27/17 Time of Surgery/Procedure: 09:12
--- NOTE | 2017-05-27 13:38 | VAS ---
DATE: 05/27/2017 PREOPERATIVE DIAGNOSIS: Malfunction of basilic vein fistula, left arm. POSTOPERATIVE DIAGNOSIS: Malfunction of basilic vein fistula, left arm. PROCEDURE CARRIED OUT: Fistulogram, left arm. SURGEON: Charles Ross MD. FOOD SERVICE ASSOCIATE: None. ANESTHESIA ADMINISTERED BY: Dr. Nichols. TYPE OF ANESTHESIA: Local with sedation. INDICATIONS: Patient is a 51-year-old man, who dialyzes using left arm; over the past few times, he has had bleeding at the end of dialysis. OPERATIVE FINDINGS: The patient was imaged from the superior vena cava to the arterial anastomosis. There is no evidence of central vein stenosis in any of the veins visualized. There is no evidence of significant stenosis at the arterial anastomosis. There was some stenosis seen in some of the veins refluxing down the forearm, but this is not the area where the patient was dialyzed. PROCEDURE: Patient was given local anesthesia. Micropuncture technique was used and the fistula was accessed. Dye was then injected centrally, without any findings of significant stenosis. We then using compressing in the upper port of the fistula, dye was injected in a retrograde reflux down to the arterial anastomosis, which was widely patent. After completion of this, the films were reviewed again. Pressure was applied to the site. Bleeding was controlled. Blood loss of the procedure was 10 mL. BASIC FINDINGS: No evidence of significant arterial or venous stenosis in the examined veins. Charles Ross Jr., MD cc: [facility] in [place], [address] [place] [address].
[2017-05-28 11:31] VITALS: RESP 23; O2SAT 95
== END | disposition home or self-care (01) ==
LOC: C.SPRAD 06:22
PROVIDERS: ATTEND Surgery Vascular Surgery
DX: T82.590A Other mechanical complication of surgically created arteriovenous fistula, initial encounter (principal); N18.6 End stage renal disease
CPT/HCPCS: 36415; 36901; 80048; 82948; 94770; C1766; C1769; J2250; J2704; J3010; Q9966; Q9967

== ENCOUNTER 2017-07-08 09:07 | Day surgery (SDC) | payer MEDICARE, BC ==
[2017-07-08 10:03] VITALS: BMI 29.8
[2017-07-08] MEDS ORDERED: Propofol 10 mg/ml Inj (20 ML) ONE (12:26)
[2017-07-08] MEDS ORDERED: Lactated Ringer's 500 ML IV SCH (12:45)
[2017-07-08 13:54] VITALS: RESP 12
[2017-07-08 14:22] VITALS: BP 125/67; PULSE 82; TEMP 98.1; O2SAT 99
== END 2017-07-08 14:20 | disposition home or self-care (01) ==
LOC: C.ENDO 09:07
PROVIDERS: ATTEND Internal Medicine Gastroenterology
DX: Z12.11 Encounter for screening for malignant neoplasm of colon (principal); D12.3 Benign neoplasm of transverse colon; K63.5 Polyp of colon; K64.0 First degree hemorrhoids; E11.9 Type 2 diabetes mellitus without complications; I10 Essential (primary) hypertension
CPT/HCPCS: 45380; 45385; 82948; 88305; J2704; J3010; J7120

== ENCOUNTER 2018-06-21 09:07 | Emergency (ER) | payer MEDICARE, BC ==
[2018-06-21 09:18] VITALS: BMI 27.5
--- NOTE | 2018-06-21 10:31 | C.PDOC ---
History Of Present Illness 52 year old male with a history of diabetes, hypertension, and ESRD presents to the emergency department with complaints of cough, chest congestion, myalgias, and nasal congestion since Thursday. Patient denies fever, and chills. Patient reports getting the flu vaccination in April of 2018. Time Seen by Provider: 06/21/18 09:54 Chief Complaint (Nursing): Cough, Cold, Congestion History Per: Patient History/Exam Limitations: no limitations Onset/Duration Of Symptoms: Days (2) Current Symptoms Are (Timing): Still Present Associated Symptoms: Cough, Nasal Congestion, Other (chest tightness, myalgias). denies: Fever, Chills Past Medical History Reviewed: Historical Data, Nursing Documentation, Vital Signs Vital Signs: Last Vital Signs Temp 99.2 F 06/21/18 09:17 Pulse 82 06/21/18 09:17 Resp 20 06/21/18 09:17 BP 164/88 H 06/21/18 09:17 Pulse Ox 99 06/21/18 09:17 - Medical History PMH: Arthritis (HX OF R ANKLE PAIN AND FALLS + FOOT DRAG USE OF R AFO), CHF (2003), Diabetes, HTN, Hypercholesterolemia, Peripheral Edema, Pneumothorax, End Stage Renal Disease, Chronic Kidney Disease (Stage III kidney dis) Surgical History: No Surg Hx - [facility] Procedures ASSISTANCE WITH RESPIRATORY VENTILATION, <24 HRS, CPAP (04/12/16) OTHER SKIN & SUBQ I D (09/21/14) PERFORMANCE OF URINARY FILTRATION, MULTIPLE (06/02/16) Family History: States: No Known Family Hx - Social History Hx Tobacco Use: No Hx Alcohol Use: No (SOCIAL) Hx Substance Use: No - Immunization History Hx Tetanus Toxoid Vaccination: Yes Hx Influenza Vaccination: Yes Hx Pneumococcal Vaccination: Yes Review Of Systems Constitutional: Negative for: Fever, Chills ENT: Positive for: Nose Congestion Cardiovascular: Positive for: Chest Pain (tightness) Respiratory: Positive for: Cough Gastrointestinal: Negative for: Nausea, Vomiting, Abdominal Pain, Diarrhea Musculoskeletal: Positive for: Other (myalgias) Physical Exam - Physical Exam Appears: Non-toxic, No Acute Distress, Other (uncomfortable) Skin: Normal Color, Warm, Dry Head: Atraumatic, Normacephalic Eye(s): bilateral: Normal Inspection, PERRL, EOMI Nose: No Discharge Oral Mucosa: Moist Neck: Normal ROM, Supple Chest: Symmetrical, No Tenderness Cardiovascular: Rhythm Regular, No Murmur Respiratory: Normal Breath Sounds, No Rales, No Rhonchi, No Wheezing Gastrointestinal/Abdominal: Soft, No Tenderness, No Guarding, No Rebound Extremity: Normal ROM Neurological/Psych: Oriented x3, Normal Speech, Normal Cognition ED Course And Treatment - Laboratory Results Result Diagrams: 06/21/18 10:47 06/21/18 10:47 O2 Sat by Pulse Oximetry: 99 (RA) Pulse Ox Interpretation: Normal - Other Rad CXR X-Ray: Viewed By Me, Read By Radiologist Interpretation: IMPRESSION: Linear atelectasis/scarring, right middle lobe. Right hilar prominence. Medical Decision Making Medical Decision Making: Given patient's past medical history, plan is as follows: Plan: EKG CMP CBC CXR Tylenol 650mg PO O2 via Nasal Cannula Influenza Serology 1214 pt appears well, no elevated wbc or left shift, cxr neg for infiltrate, influenza neg. will d/c home with pmd f/u. tylenol, advised to return for fever, worse symptoms. Disposition Counseled Patient/Family Regarding: Studies Performed, Diagnosis, Need For Followup, Rx Given - Disposition Referrals: Jocy Thorpe MD [Staff Provider] - Disposition: HOME/ ROUTINE Disposition Time: 12:16 Condition: GOOD Additional Instructions: Please follow up with Dr Thorpe in next few days and go for dialysis as usual tomorrow. Return to ER for fever, worse pain, any shortness of breath or other concerns. Tylenol for pain. Prescriptions: Acetaminophen [Tylenol 325mg tab] 650 mg PO Q6 #30 tab Instructions: Upper Respiratory Infection (ED) Forms: [facility] (Pashto), General Discharge Instructions - Clinical Impression Clinical Impression: Influenza-like illness - PA / LEADERSHIP DEVELOPMENT MANAGER / Resident Statement MD/DO has reviewed & agrees with the documentation as recorded. - Scribe Statement The provider has reviewed the documentation as recorded by the Scribe (Delta Diaz)
[2018-06-21 10:52] LABS: BASO % 0.8 % (0.0-2.0); EOS # 0.1 K/uL (0.0-0.7); EOS % 1.1 % (0.0-4.0); LYMPH # 1.1 K/uL (1.0-4.3); LYMPH % 23.4 % (20.0-40.0); MEAN CORPUSCULAR HEMOGLOBIN 32.4 pg (27.0-31.0); MEAN CORPUSCULAR HGB CONC 33.8 g/dL (33.0-37.0); MEAN PLATELET VOLUME 9.3 fL (7.2-11.7); MONO # 1.1 K/uL (0.0-0.8); MONO % 22.5 % (0.0-10.0); NEUT # 2.5 K/uL (1.8-7.0); NEUT % 52.2 % (50.0-75.0); NRBC % 0.1 % (0.0-2.0); PLATELET COUNT 135 K/uL (130-400); RBC 3.74 Mil/uL (4.40-5.90); RED CELL DISTRIBUTION WIDTH 13.6 % (11.5-14.5); WHITE BLOOD COUNT 4.8 K/uL (4.8-10.8)
[2018-06-21 11:00] LABS: HEMOGLOBIN 12.1 g/dL (12.0-18.0)
[2018-06-21 11:16] LABS: ALB/GLOB RATIO 1.2 (1.0-2.1); ALBUMIN 4.4 g/dL (3.5-5.0); CALCIUM 8.8 mg/dl (8.6-10.4)
--- NOTE | 2018-06-21 11:20 | RAD ---
HISTORY: cough chest tightness COMPARISON: Chest x-ray performed 11/06/17 TECHNIQUE: Chest PA and lateral FINDINGS: LUNGS: Linear atelectasis/scarring, right middle lobe. Right hilar prominence. Please note that chest x-ray has limited sensitivity for the detection of pulmonary masses. PLEURA: No significant pleural effusion identified. No definite pneumothorax . CARDIOVASCULAR: Heart size appears within normal limits. Faint atherosclerotic calcifications. OSSEOUS STRUCTURES: Degenerative changes VISUALIZED UPPER ABDOMEN: Unremarkable. OTHER FINDINGS: None. IMPRESSION: Linear atelectasis/scarring, right middle lobe. Right hilar prominence.
[2018-06-21 11:31] LABS: BANDS 1 % (0-2); EOSINOPHIL 2 % (0-4); LYMPHOCYTE 20 % (20-40); MONOCYTE 22 % (0-10); NEUTROPHIL 55 % (50-75); PLATELET ESTIMATE NORMAL (NORMAL); TOTAL CELLS COUNTED 100
[2018-06-21 12:45] VITALS: BP 122/81; PULSE 74; RESP 16; TEMP 99.4
[2018-06-23 02:37] VITALS: O2SAT 99
--- NOTE | 2018-06-23 05:58 | CARD ---
APPROVED REPORT Date of service: 06/21/2018 EKG Measurement Heart [id number] <Conclusion> Normal sinus rhythm Nonspecific T wave abnormality Abnormal ECG
== END 2018-06-21 12:43 | disposition home or self-care (01) ==
LOC: C.ER 09:07
DX: J11.1 Influenza due to unidentified influenza virus with other respiratory manifestations (principal)

== ENCOUNTER 2018-08-24 09:09 | Inpatient (IN) | payer BC, MEDICARE ==
[2018-08-24 09:09] VITALS: BMI 27.5
--- NOTE | 2018-08-24 10:10 | C.PDOC ---
History Of Present Illness 53 y/o male brought to ER by ambulance from dialysis center for evaluation of shortness of breath. Patient states that he has dialysis on Tuesdays, , and Saturdays. Patient reports that he began feeling shortness of breath when he was walking to the center. He notes that he had a syncopal episode in the center. He states that he does not remember what happened. He states that the staff performed CPR and he began having chest pain afterwards. He was not able to complete the dialysis today. Denies having fever,chills, nausea, vomiting, and abdominal pain. Time Seen by Provider: 08/24/18 09:37 Chief Complaint (Nursing): Syncope History Per: Patient History/Exam Limitations: no limitations Onset/Duration Of Symptoms: Hrs Current Symptoms Are (Timing): Still Present Severity: Moderate Past Medical History Reviewed: Historical Data, Nursing Documentation, Vital Signs Vital Signs: Last Vital Signs Temp 98.2 F 08/24/18 09:40 Pulse 77 08/24/18 09:40 Resp 20 08/24/18 09:40 BP 203/107 H 08/24/18 09:40 Pulse Ox 81 L 08/24/18 09:40 - Medical History PMH: Arthritis (HX OF R ANKLE PAIN AND FALLS + FOOT DRAG USE OF R AFO), CHF (2003), Diabetes, HTN, Hypercholesterolemia, Peripheral Edema, Pneumothorax, End Stage Renal Disease, Chronic Kidney Disease (Stage III kidney dis) Other Surgeries: Hx of surgeries - [facility] Procedures ASSISTANCE WITH RESPIRATORY VENTILATION, <24 HRS, CPAP (04/12/16) OTHER SKIN & SUBQ I D (09/21/14) PERFORMANCE OF URINARY FILTRATION, MULTIPLE (06/02/16) Family History: States: No Known Family Hx - Social History Hx Tobacco Use: No Hx Alcohol Use: Yes (SOCIAL) Hx Substance Use: No - Immunization History Hx Tetanus Toxoid Vaccination: Yes Hx Influenza Vaccination: Yes (04/2018) Hx Pneumococcal Vaccination: Yes (04/2018) Review Of Systems Except As Marked, All Systems Reviewed And Found Negative. Constitutional: Negative for: Fever, Chills Cardiovascular: Positive for: Chest Pain Respiratory: Positive for: Shortness of Breath Gastrointestinal: Negative for: Nausea, Vomiting, Abdominal Pain Neurological: Positive for: Other (syncopal episode) Physical Exam - Physical Exam Appears: Non-toxic, No Acute Distress Skin: Normal Color, Warm, Dry Head: Atraumatic, Normacephalic Eye(s): bilateral: Normal Inspection Nose: Normal Oral Mucosa: Moist Neck: Supple Chest: Symmetrical, Tenderness (left chest wall tenderness), No Ecchymosis Cardiovascular: Rhythm Regular Respiratory: Normal Breath Sounds, No Rales, No Rhonchi, No Wheezing Gastrointestinal/Abdominal: Normal Exam, Soft, No Tenderness, No Guarding, No Rebound Extremity: Normal ROM, Other (AV graft to LUE with positive thrill, long standi ng brace to right leg) Neurological/Psych: Oriented x3, Normal Speech ED Course And Treatment - Laboratory Results Result Diagrams: 08/24/18 10:15 08/24/18 10:15 ECG: Interpreted By Me, Viewed By Me ECG Rhythm: Sinus Rhythm ECG Interpretation: Normal Rate From EC O2 Sat by Pulse Oximetry: 81 Medical Decision Making Medical Decision Making: Plan: Head CT EKG CXR Labs with troponin and CMP Lasix IVP Updates: 1130: Dr. Carson (operating room scheduler) made arrangements for dialysis for patient. 1201: Dr. Quinones agrees to accept patient. Disposition Counseled Patient/Family Regarding: Studies Performed, Diagnosis - Disposition Disposition: HOSPITALIZED Disposition Time: 12:02 Condition: STABLE - Clinical Impression Clinical Impression: CHF (congestive heart failure), ESRD (end stage renal disease) on dialysis, Syncope - Scribe Statement The provider has reviewed the documentation as recorded by the Melaniaibe Walt Parker Provider Attestation: All medical record entries made by the Scribe were at my direction and personally dictated by me. I have reviewed the chart and agree that the record a ccurately reflects my personal performance of the history, physical exam, medical decision making, and the department course for this patient. I have also personally directed, reviewed, and agree with the discharge instructions and disposition.
[2018-08-24 10:22] LABS: BASO # 0.1 K/uL (0.0-0.2); BASO % 0.9 % (0.0-2.0); EOS # 0.2 K/uL (0.0-0.7); EOS % 2.5 % (0.0-4.0); HEMOGLOBIN 10.2 g/dL (12.0-18.0); LYMPH # 0.8 K/uL (1.0-4.3); LYMPH % 8.9 % (20.0-40.0); MEAN CORPUSCULAR HEMOGLOBIN 33.7 pg (27.0-31.0); MEAN CORPUSCULAR HGB CONC 34.2 g/dL (33.0-37.0); MEAN PLATELET VOLUME 9.2 fL (7.2-11.7); MONO # 0.6 K/uL (0.0-0.8); MONO % 6.2 % (0.0-10.0); NEUT # 7.7 K/uL (1.8-7.0); NEUT % 81.5 % (50.0-75.0); PLATELET COUNT 158 K/uL (130-400); RBC 3.04 Mil/uL (4.40-5.90); RED CELL DISTRIBUTION WIDTH 14.5 % (11.5-14.5)
[2018-08-24 10:33] LABS: MEAN CELL VOLUME 98.5 fL (80.0-94.0); WHITE BLOOD COUNT 9.4 K/uL (4.8-10.8)
--- NOTE | 2018-08-24 10:49 | CT ---
Date of service: 08/24/2018 PROCEDURE: CT HEAD WITHOUT CONTRAST. HISTORY: Syncope COMPARISON: Comparison made with prior CT scan brain 03/08/2017. TECHNIQUE: Axial computed tomography images were obtained through the head/brain without intravenous contrast. Radiation dose: Total exam DLP = 1173.08 mGy-cm. This CT exam was performed using one or more of the following dose reduction techniques: Automated exposure control, adjustment of the mA and/or kV according to patient size, and/or use of iterative reconstruction technique. FINDINGS: HEMORRHAGE: No parenchymal, subarachnoid or extra-axial hemorrhage. BRAIN: There appear to be mild diffuse/confluent chronic periventricular white matter ischemic changes extend peripherally into the deep white matter both cerebral hemispheres. Moderate generalized volume loss. VENTRICLES: No obstructive hydrocephalus. CALVARIUM: Calvarium intact PARANASAL SINUSES: Opacification right chamber sphenoid sinus. There is a small focus of polypoid like mucosal thickening left maxillary antrum. MASTOID AIR CELLS: Unremarkable as visualized. No inflammatory changes. OTHER FINDINGS: Changes of bilateral cataract surgery present. IMPRESSION: No acute intracranial hemorrhage. Mild chronic periventricular white matter ischemic changes. Moderate generalized volume loss. Complete opacification right chamber sphenoid sinus.
[2018-08-24 10:56] LABS: BANDS 5 % (0-2); EOSINOPHIL 3 % (0-4); LYMPHOCYTE 4 % (20-40); MONOCYTE 5 % (0-10); NEUTROPHIL 83 % (50-75); PLATELET ESTIMATE NORMAL (NORMAL); TOTAL CELLS COUNTED 100
[2018-08-24 11:01] LABS: ALB/GLOB RATIO 1.3 (1.0-2.1); ALBUMIN 4.5 g/dL (3.5-5.0); ALT/SGPT 20 U/L (21-72); AST/SGOT 31 U/L (17-59); BLOOD UREA NITROGEN 66 mg/dL (9-20); CALCIUM 9.7 mg/dl (8.6-10.4); GFR NON-AFRICAN AMERICAN 5
[2018-08-24 11:11] LABS: B-TYPE NATRIURETIC PEPTIDE 35800 pg/mL (0-900)
--- NOTE | 2018-08-24 13:54 | RAD ---
Date of service: 08/24/2018 PROCEDURE: CHEST RADIOGRAPH, 1 VIEW HISTORY: chest pain COMPARISON: 06/21/2018 FINDINGS: LUNGS: Current lung volumes less now than before. Vague low-density over right costophrenic angle right pleural effusion with some subsegmental atelectasis and possible confluent area pulmonary edema are some considerations. A infiltrate here is not excluded. This is is an interval change. Continued follow-up is advised. PLEURA: The thorax seen. Pulmonary venous congestion suspect. CARDIOVASCULAR: No aortic atherosclerotic calcification present. Probable top-normal heart size. Mild pulmonary venous congestion suggested-findings may be slightly more pronounced on the right. OSSEOUS STRUCTURES: No significant abnormalities. VISUALIZED UPPER ABDOMEN: Normal. OTHER FINDINGS: None. IMPRESSION: Interval increased pulmonary venous congestion. Interval increased vague opacity right lung base-mixed pathologies here-small right pleural effusion is some subsegmental atelectasis infiltrates are some considerations. Asymmetrical area of a pulmonary edema not excluded. Continued follow-up recommended.
[2018-08-24] MEDS ORDERED: (Novolin 70/30) NPH/Regular 70/30 Units/ml 10 ml vial SC SCH (18:00)
[2018-08-24] MEDS: (Novolin R) Insulin Human Regular 100 units/ml vial SC SCH (21:37)
[2018-08-25] MEDS ORDERED: (Novolin 70/30) NPH/Regular 70/30 Units/ml 10 ml vial SC SCH ×2 (00:08→10:00)
--- NOTE | 2018-08-25 00:10 | CP.PCM.HP ---
Present on Admission - Present on Admission Any Indicators Present on Admission: Yes History of Uncontrolled Diabetes: Yes Past Patient History - Infectious Disease Hx of Infectious Diseases: None - Past Medical History & Family History Past Medical History?: Yes - Past Social History Smoking Status: Never Smoked - CARDIAC Hx Congestive Heart Failure: Yes (2003) Hx Hypercholesterolemia: Yes Hx Hypertension: Yes Hx Peripheral Edema: Yes - PULMONARY Hx Respiratory Disorders: Yes Other/Comment: HX OF ACUTE RENAL FAILURE ON VENTILATOR FOR 1 MONTH IN (RIGHT LUNG COLLAPSE) LOWER RIGHT LOBE REMOVED 2003 - HEENT Hx HEENT Problems: Yes Hx Cataracts: Yes (both eyes, BOTH CATARACT EXTRACTION) - RENAL Hx Chronic Kidney Disease: Yes (Stage III kidney dis) - ENDOCRINE/METABOLIC Hx Endocrine Disorders: Yes Hx Diabetes Mellitus Type 2: Yes - HEMATOLOGICAL/ONCOLOGICAL Hx Blood Disorders: No - INTEGUMENTARY Hx Dermatological Problems: No - MUSCULOSKELETAL/RHEUMATOLOGICAL Hx Arthritis: Yes (HX OF R ANKLE PAIN AND FALLS + FOOT DRAG USE OF R AFO) - GASTROINTESTINAL Hx Gastrointestinal Disorders: No - GENITOURINARY/GYNECOLOGICAL Hx Genitourinary Disorders: No - PSYCHIATRIC Hx Substance Use: No - SURGICAL HISTORY Hx Surgeries: Yes Hx Cataract Extraction: Yes (BILAT.) Hx Eye Surgery: Yes (cataract sx both eyes) Hx Pulmonary Surgery: Yes (01/2004 arf on ventilator lungs collapsed chest tube) Other/Comment: rt.arm fistula - ANESTHESIA Hx Anesthesia: Yes Hx Anesthesia Reactions: No Hx Malignant Hyperthermia: No Meds Allergies/Adverse Reactions: Allergies Allergy/AdvReac Type Severity Reaction Status Date / Time No Known Allergies Allergy Verified 08/24/18 09:35 Results - Vital Signs Recent Vital Signs: Last Vital Signs Temp 97.8 F 08/24/18 18:30 Pulse 76 08/24/18 18:30 Resp 18 08/24/18 18:30 BP 163/88 H 08/24/18 21:37 Pulse Ox 95 08/24/18 22:49 - Labs Result Diagrams: 08/24/18 10:15 08/24/18 10:15 Labs: Laboratory Results - last 24 hr 08/24/18 08/24/18 08/24/18 09:33 10:15 10:15 WBC 9.4 D RBC 3.04 L Hgb 10.2 L Hct 29.9 L MCV 98.5 H D MCH 33.7 H MCHC 34.2 RDW 14.5 Plt Count 158 MPV 9.2 Neut % (Auto) 81.5 H Lymph % (Auto) 8.9 L [place] % (Auto) 6.2 Eos % (Auto) 2.5 Baso % (Auto) 0.9 Neut # (Auto) 7.7 H Lymph # (Auto) 0.8 L [place] # (Auto) 0.6 Eos # (Auto) 0.2 Baso # (Auto) 0.1 Neutrophils % (Manual) 83 H Band Neutrophils % 5 H Lymphocytes % (Manual) 4 L Monocytes % (Manual) 5 Eosinophils % (Manual) 3 Platelet Estimate Normal RBC Morphology Normal Sodium 138 Potassium 4.9 Chloride 98 Carbon Dioxide 26 Anion Gap 18 BUN 66 H Creatinine 11.3 H* Est GFR ( Amer) 6 Est GFR (Non-Af Amer) 5 POC Glucose (mg/dL) 204 H Random Glucose 174 H D Calcium 9.7 Total Bilirubin 0.9 AST 31 ALT 20 L D Alkaline Phosphatase 122 Troponin I < 0.0120 NT-Pro-B Natriuret Pep 91810 H Total Protein 8.0 Albumin 4.5 Globulin 3.5 Albumin/Globulin Ratio 1.3 08/24/18 08/24/18 08/24/18 11:37 16:05 21:21 WBC RBC Hgb Hct MCV MCH MCHC RDW Plt Count MPV Neut % (Auto) Lymph % (Auto) [place] % (Auto) Eos % (Auto) Baso % (Auto) Neut # (Auto) Lymph # (Auto) [place] # (Auto) Eos # (Auto) Baso # (Auto) Neutrophils % (Manual) Band Neutrophils % Lymphocytes % (Manual) Monocytes % (Manual) Eosinophils % (Manual) Platelet Estimate RBC Morphology Sodium Potassium Chloride Carbon Dioxide Anion Gap BUN Creatinine Est GFR ( Amer) Est GFR (Non-Af Amer) POC Glucose (mg/dL) 129 H 86 157 H Random Glucose Calcium Total Bilirubin AST ALT Alkaline Phosphatase Troponin I NT-Pro-B Natriuret Pep Total Protein Albumin Globulin Albumin/Globulin Ratio
--- NOTE | 2018-08-25 07:03 | HP ---
CHIEF COMPLAINT: Syncope. HISTORY OF PRESENT ILLNESS: This is a 53-year-old male with history of type 2 diabetes on insulin, hypertension, hyperlipidemia. He is on hemodialysis for last two years as a result of end-stage renal disease due to diabetes. His gas treater is Dr. Hill, and the patient is on hemodialysis on Thursday, , and Thursday, and today, he was not feeling well. Since morning, he was feeling woozy. He went to dialysis and while he was waiting in the waiting room for dialysis, before dialysis could be started the patient syncopized. The patient denies any premonitory symptoms. He denies any history of chest pain, palpitations, headache, dizziness, blurring of vision, spinning sensation, and he denies any history of head injury, but he did have loss of consciousness. By the time the patient woke up, he found himself in the ambulance and his chest was sore. According to the EMS, the patient was resuscitated. CPR was begun with the patient was oxygenated with the Ambu bag. The patient denies any history of fever, chills, rigors. He denies any history of chest pain, dyspnea on exertion, orthopnea, PND. He denies any cough, sore throat, runny nose. He denies any history of polyuria, polydipsia, or polyphagia. He denies any history of hematuria or pyuria. No history of sneezing, itchy eyes, itchy nose. PAST MEDICAL HISTORY: End-stage renal disease on hemodialysis for two years, diabetes with diabetic nephropathy, hypertension, hyperlipidemia. He has history of collapsed lung with surgery on both lungs. SOCIAL HISTORY: He is a nonsmoker, non-EtOH user. CURRENT MEDICATIONS: Multivitamin, Renvela, Procardia, Toprol, Humulin 70/30, Lasix, Tylenol. PHYSICAL EXAMINATION: GENERAL: A middle-aged male in distress with chest pain from compression. VITAL SIGNS: Blood pressure 163/88, pulse 76, respiratory rate 18, temperature 97.8. SKIN: No bruises. No purpura. No petechiae. No ecchymosis. HEENT: Atraumatic and normocephalic. Negative pallor. Negative jaundice. Extraocular movements are intact. NECK: Supple. No JVD. No lymph node. No thyromegaly. No carotid bruits. CHEST WALL: Bilateral symmetrical expansion. No deformity. There is mild tenderness. LUNGS: Bilaterally clear. No rale. No rhonchi. CARDIOVASCULAR SYSTEM: PMI in fifth intercostal space. S1 and S2. Regular. No heave. No thrill. ABDOMEN: Soft and nontender. Bowel sounds are positive. RECTAL: No masses. No bleed. EXTREMITIES: No clubbing, cyanosis, or edema. CENTRAL NERVOUS SYSTEM: Awake, alert, and oriented x3. Cranial nerves II through XII are normal. Power 5/5 x4. Plantars are downgoing. ASSESSMENT: 1. Syncope. Rule out coronary ischemia versus cardiac arrhythmia versus hypoglycemia versus vasovagal syncope. 2. Poorly controlled hypertension. 3. Poorly controlled diabetes. 4. Chronic kidney disease, on hemodialysis. PLAN: The patient was seen and examined. The patient's detailed orders are written, and the patient will be followed up closely. Kalpesh Quinones MD
[2018-08-25] MEDS: Metoprolol Succinate 50 mg XL Tab PO SCH (10:58)
[2018-08-25] MEDS: Multivitamin Vitamin B Complex (Nephro-Vite) Tab PO SCH (10:58)
[2018-08-25] MEDS: NIFEdipine 30 mg ER Tab PO SCH (11:00)
[2018-08-25] MEDS: (Novolin 70/30) NPH/Regular 70/30 Units/ml 10 ml vial SC SCH (11:03)
[2018-08-25] MEDS: (Novolin R) Insulin Human Regular 100 units/ml vial SC SCH ×4 (11:49→21:30)
[2018-08-25] MEDS: Oxycodone/Acetaminophen 5/325 mg Tab PO PRN ×2 (12:32→21:52)
--- NOTE | 2018-08-25 15:31 | VASCLAB ---
Date of service: 08/25/2018 PROCEDURE: Carotid Duplex Exam. HISTORY: syncope COMPARISON: None available. TECHNIQUE: Grayscale and duplex Doppler evaluation of the cervical carotid and vertebral arteries were performed. The common carotid, carotid bifurcations and cervical Internal Carotid Artery (ICA) and proximal External Carotid Artery (ECA) were evaluated. The vertebral arteries were evaluated for gross patency and flow direction. Report prepared by RADHA Leong FINDINGS: RIGHT CAROTID ARTERIES: 1. Common Carotid Artery: No significant focal plaque formation of the right common carotid artery. Maximum Peak Systolic velocity: 76 cm/sec: End-diastolic velocity 7 cm/sec. 2. Carotid Bifurcation: plaque formation. Maximum Peak Systolic velocity: 95 cm/sec: End-diastolic velocity 25 cm/sec. 3. Internal Carotid Artery: Plaque description: 3.1. Proximal Segment: Peak systolic velocity 125 cm/sec: End-diastolic velocity 27 cm/sec - % stenosis 0-15% 3.2. Middle Segment: Peak systolic velocity 96 cm/sec: End-diastolic velocity 29 cm/sec - % stenosis 0-15% 3.3. Distal Segment: Peak systolic velocity 68 cm/sec: End-diastolic velocity 23 cm/sec - % stenosis 0-15% 4. External Carotid Artery: No significant focal plaque formation. Peak systolic velocity 111 cm/sec 5. ICA/CCA Ratio: 1.6 LEFT CAROTID ARTERIES: 1. Common Carotid Artery: No significant focal plaque formation of the left common carotid artery. Maximum Peak Systolic velocity: 85 cm/sec: End-diastolic velocity 14 cm/sec. 2. Carotid Bifurcation: plaque formation. Maximum Peak Systolic velocity: 64 cm/sec: End-diastolic velocity 12 cm/sec. 3. Internal Carotid Artery: Plaque description: 3.1. Proximal Segment: Peak systolic velocity 64 cm/sec: End-diastolic velocity 17 cm/sec - % stenosis 0-15% 3.2. Middle Segment: Peak systolic velocity 103 cm/sec: End-diastolic velocity 32 cm/sec - % stenosis 0-15% 3.3. Distal Segment: Peak systolic velocity 83 cm/sec: End-diastolic velocity 25 cm/sec - % stenosis 0-15% 4. External Carotid Artery: No significant focal plaque formation. Peak systolic velocity 98 cm/sec 5. ICA/CCA Ratio: 1.2 VERTEBRAL ARTERIES: 1. Right Vertebral Artery: The right vertebral artery flow direction is antegrade. 2. Left Vertebral Artery: The left vertebral artery flow direction is antegrade. OTHER FINDINGS: 1. Right Brachial Blood pressure: 110 mmHg. 2. Left Brachial Blood pressure: mmHg. 3. No atherosclerotic calcification present IMPRESSION: RIGHT: Duplex scan does not suggest hemodynamically significant stenosis of the right extracranial carotid arteries. LEFT: Duplex scan does not suggest hemodynamically significant stenosis of the left extracranial carotid arteries.
[2018-08-25] MEDS ORDERED: Dextrose 50% SYRINGE Inj (50 ml) ONE (16:46)
--- NOTE | 2018-08-25 17:43 | CARD ---
APPROVED REPORT Date of service: 08/25/2018 EXAM: Two-dimensional and M-mode echocardiogram with Doppler and color Doppler. Other Information Quality : ExcellentGoodRhythm : INDICATION Syncope 2D DIMENSIONS IVSd0.9 (0.7-1.1cm)LVDd4.8 (3.9-5.9cm) PWd1.1 (0.7-1.1cm)LA Mhobht21 (18-58mL) LVDs3.5 (2.5-4.0cm)FS (%) 27.3 % LVEF (%)53.0 (>50%)LVEF (Wallace's)53.87 % M-Mode DIMENSIONS Left Atrium (MM)3.91 (2.5-4.0cm)IVSd0.92 (0.7-1.1cm) Aortic Root3.80 (2.2-3.7cm)LVDd5.10 (4.0-5.6cm) Aortic Cusp Exc.2.16 (1.5-2.0cm)PWd0.98 (0.7-1.1cm) FS (%) 28 %LVDs3.65 (2.0-3.8cm) LVEF (%)55 (>50%) Mitral Valve MV E Flelnojr17.0cm/sMV A Ywthansv88.3cm/sE/A ratio1.0 TDI Lateral E' Peak V8.55cm/sMedial E' Peak V5.71cm/sE/Lateral E'9.8 E/Medial E'14.7 Tricuspid Valve TR Peak Gr.[id number] LEFT VENTRICLE The left ventricle is normal size. There is normal left ventricular wall thickness. The left ventricular function is low normal. The left ventricular ejection fraction is within the normal range. 54% No regional wall motion abnormalities noted. The left ventricular diastolic function is indeterminate. No left ventricle thrombus noted on this study. There is no ventricular septal defect visualized. There is no left ventricular aneurysm. There is no mass noted in the left ventricle. RIGHT VENTRICLE The right ventricle is normal size. There is normal right ventricular wall thickness. The right ventricular systolic function is normal. ATRIA The left atrial volume index is mildy increased. The right atrium size is normal. The interatrial septum is intact with no evidence for an atrial septal defect. AORTIC VALVE The aortic valve is normal in structure and function. No aortic regurgitation is present. There is no aortic valvular stenosis. There is no aortic valvular vegetation. MITRAL VALVE The mitral valve is normal in structure and function. There is no evidence of mitral valve prolapse. There is no mitral valve stenosis. There is trace mitral valve regurgitation noted. TRICUSPID VALVE The tricuspid valve is normal in structure and function. There is mild tricuspid valve regurgitation noted. There is no tricuspid valve prolapse or vegetation. There is no tricuspid valve stenosis. PULMONIC VALVE The pulmonary valve is normal in structure and function. There is trace pulmonic valvular regurgitation. There is no pulmonic valvular stenosis. GREAT VESSELS The aortic root is normal in size. The ascending aorta is normal in size. The pulmonary artery is normal. The IVC is dilated and collapses <50% with inspiration. PERICARDIAL EFFUSION The pericardium appears normal. There is no pleural effusion. <Conclusion> The left ventricular function is low normal. The left atrial volume index is mildy increased. Normal Doppler.
--- NOTE | 2018-08-25 19:01 | CARD ---
APPROVED REPORT Date of service: 08/24/2018 EKG Measurement Heart [id number] <Conclusion> Normal sinus rhythm Normal ECG
--- NOTE | 2018-08-25 22:53 | CP.PCM.PN ---
Subjective - Date & Time of Evaluation Date of Evaluation: 08/25/18 Time of Evaluation: 08:40 - Subjective Subjective: dictated Objective - Vital Signs/Intake and Output Vital Signs (last 24 hours): Temp Pulse Resp BP Pulse Ox 97.5 F L 63 20 150/80 95 08/25/18 15:00 08/25/18 15:50 08/25/18 15:00 08/25/18 21:55 08/25/18 15:00 - Medications Medications: Current Medications Acetaminophen (Tylenol 325mg Tab) 650 mg PO Q6 PRN PRN Reason: Pain, moderate (4-7) Last Admin: 08/25/18 06:48 Dose: 650 mg Furosemide (Lasix) 60 mg IVP Q12 [facility] Last Admin: 08/25/18 21:55 Dose: 60 mg Heparin Sodium (Porcine) (Heparin) 5,000 units SC Q12 [facility] Last Admin: 08/25/18 21:55 Dose: 5,000 units Insulin Human Isoph/Insulin Regular (Novolin 70/30 (70/30 Units/Ml) 10 Ml) 28 units SC QAM [facility] Last Admin: 08/25/18 11:03 Dose: 28 unit Insulin Human Isoph/Insulin Regular (Novolin 70/30 (70/30 Units/Ml) 10 Ml) 18 units SC QPM [facility] Last Admin: 08/25/18 17:01 Dose: Not Given Insulin Human Regular (Novolin R) 0 unit SC ACHS [facility]; Protocol Last Admin: 08/25/18 21:30 Dose: Not Given Metoprolol Succinate (Toprol Xl) 50 mg PO DAILY [facility] Last Admin: 08/25/18 10:58 Dose: 50 mg Nifedipine (Procardia Xl) 30 mg PO DAILY [facility] Last Admin: 08/25/18 11:00 Dose: 30 mg Oxycodone/Acetaminophen (Percocet 5/325 Mg Tab) 1 tab PO Q6H PRN PRN Reason: Pain, moderate (4-7) Stop: 08/28/18 11:51 Last Admin: 08/25/18 21:52 Dose: 1 tab Rosuvastatin Calcium (Crestor) 5 mg PO HS [facility] Last Admin: 08/25/18 21:52 Dose: 5 mg Sevelamer Carbonate (Renvela) 800 mg PO TIDCC [facility] Last Admin: 08/25/18 17:28 Dose: 800 mg Vitamin B Complex/Vit C/Folic Acid (Nephro-Gaby) 1 tab PO DAILY [facility] Last Admin: 08/25/18 10:58 Dose: 1 tab - Labs Labs: 08/24/18 10:15 08/24/18 10:15
--- NOTE | 2018-08-26 00:40 | CP.PCM.CON ---
History of Present Illness - History of Present Illness History of Present Illness: 4 M hx of CRF on HD admitted for syncope and uncontrolled HTN 53 y/o male brought to ER by ambulance from dialysis center for evaluation of shortness of breath. Patient states that he has dialysis on Tuesdays, , and Saturdays. Patient reports that he began feeling shortness of breath when he was walking to the center. He notes that he had a syncopal episode in the center. He states that he does not remember what happened. He states that the staff performed CPR and he began having chest pain afterwards. He was not able t o complete the dialysis today. Denies having fever,chills, nausea, vomiting, and abdominal pain. Chief Complaint (Nursing): Syncope History Per: Patient History/Exam Limitations: no limitations Onset/Duration Of Symptoms: Hrs Current Symptoms Are (Timing): Still Present Severity: Moderate Past Medical History Reviewed: Historical Data, Nursing Documentation, Vital Signs Vital Signs: Last Vital Signs Temp 98.2 F 08/24/18 09:40 Pulse 77 08/24/18 09:40 Resp 20 08/24/18 09:40 BP 203/107 H 08/24/18 09:40 Pulse Ox 81 L 08/24/18 09:40 - Medical History PMH: Arthritis (HX OF R ANKLE PAIN AND FALLS + FOOT DRAG USE OF R AFO), CHF (2003), Diabetes, HTN, Hypercholesterolemia, Peripheral Edema, Pneumothorax, End Stage Renal Disease, Chronic Kidney Disease (Stage III kidney dis) Other Surgeries: Hx of surgeries - [facility] Procedures ASSISTANCE WITH RESPIRATORY VENTILATION, <24 HRS, CPAP (04/12/16) OTHER SKIN & SUBQ I D (09/21/14) PERFORMANCE OF URINARY FILTRATION, MULTIPLE (06/02/16) Family History: States: No Known Family Hx - Social History Hx Tobacco Use: No Hx Alcohol Use: Yes (SOCIAL) Hx Substance Use: No - Immunization History Hx Tetanus Toxoid Vaccination: Yes Hx Influenza Vaccination: Yes (04/2018) Hx Pneumococcal Vaccination: Yes (04/2018) Review Of Systems Except As Marked, All Systems Reviewed And Found Negative. Constitutional: Negative for: Fever, Chills Cardiovascular: Positive for: Chest Pain Respiratory: Positive for: Shortness of Breath Gastrointestinal: Negative for: Nausea, Vomiting, Abdominal Pain Neurological: Positive for: Other (syncopal episode) Physical Exam - Physical Exam Appears: Non-toxic, No Acute Distress Skin: Normal Color, Warm, Dry Head: Atraumatic, Normacephalic Eye(s): bilateral: Normal Inspection Nose: Normal Oral Mucosa: Moist Neck: Supple Chest: Symmetrical, Tenderness (left chest wall tenderness), No Ecchymosis Cardiovascular: Rhythm Regular Respiratory: Normal Breath Sounds, No Rales, No Rhonchi, No Wheezing Gastrointestinal/Abdominal: Normal Exam, Soft, No Tenderness, No Guarding, No Rebound Extremity: Normal ROM, Other (AV graft to LUE with positive thrill, long s tanding brace to right leg) Neurological/Psych: Oriented x3, Normal Speech Past Patient History - Infectious Disease Hx of Infectious Diseases: None - Past Medical History & Family History Past Medical History?: Yes - Past Social History Smoking Status: Never Smoked - CARDIAC Hx Congestive Heart Failure: Yes (2003) Hx Hypercholesterolemia: Yes Hx Hypertension: Yes Hx Peripheral Edema: Yes - PULMONARY Hx Respiratory Disorders: Yes Other/Comment: HX OF ACUTE RENAL FAILURE ON VENTILATOR FOR 1 MONTH IN (RIGHT LUNG COLLAPSE) LOWER RIGHT LOBE REMOVED 2003 - HEENT Hx HEENT Problems: Yes Hx Cataracts: Yes (both eyes, BOTH CATARACT EXTRACTION) - RENAL Hx Chronic Kidney Disease: Yes (Stage III kidney dis) - ENDOCRINE/METABOLIC Hx Endocrine Disorders: Yes Hx Diabetes Mellitus Type 2: Yes - HEMATOLOGICAL/ONCOLOGICAL Hx Blood Disorders: No - INTEGUMENTARY Hx Dermatological Problems: No - MUSCULOSKELETAL/RHEUMATOLOGICAL Hx Arthritis: Yes (HX OF R ANKLE PAIN AND FALLS + FOOT DRAG USE OF R AFO) - GASTROINTESTINAL Hx Gastrointestinal Disorders: No - GENITOURINARY/GYNECOLOGICAL Hx Genitourinary Disorders: No - PSYCHIATRIC Hx Substance Use: No - SURGICAL HISTORY Hx Surgeries: Yes Hx Cataract Extraction: Yes (BILAT.) Hx Eye Surgery: Yes (cataract sx both eyes) Hx Pulmonary Surgery: Yes (01/2004 arf on ventilator lungs collapsed chest tube) Other/Comment: rt.arm fistula - ANESTHESIA Hx Anesthesia: Yes Hx Anesthesia Reactions: No Hx Malignant Hyperthermia: No Meds Allergies/Adverse Reactions: Allergies Allergy/AdvReac Type Severity Reaction Status Date / Time No Known Allergies Allergy Verified 08/24/18 09:35 - Medications Medications: Current Medications Acetaminophen (Tylenol 325mg Tab) 650 mg PO Q6 PRN PRN Reason: Pain, moderate (4-7) Last Admin: 08/25/18 06:48 Dose: 650 mg Furosemide (Lasix) 60 mg IVP Q12 [facility] Last Admin: 08/25/18 21:55 Dose: 60 mg Heparin Sodium (Porcine) (Heparin) 5,000 units SC Q12 [facility] Last Admin: 08/25/18 21:55 Dose: 5,000 units Insulin Human Isoph/Insulin Regular (Novolin 70/30 (70/30 Units/Ml) 10 Ml) 28 units SC QAM [facility] Last Admin: 08/25/18 11:03 Dose: 28 unit Insulin Human Isoph/Insulin Regular (Novolin 70/30 (70/30 Units/Ml) 10 Ml) 18 units SC QPM [facility] Last Admin: 08/25/18 17:01 Dose: Not Given Insulin Human Regular (Novolin R) 0 unit SC ACHS [facility]; Protocol Last Admin: 08/25/18 21:30 Dose: Not Given Metoprolol Succinate (Toprol Xl) 50 mg PO DAILY [facility] Last Admin: 08/25/18 10:58 Dose: 50 mg Nifedipine (Procardia Xl) 30 mg PO DAILY [facility] Last Admin: 08/25/18 11:00 Dose: 30 mg Oxycodone/Acetaminophen (Percocet 5/325 Mg Tab) 1 tab PO Q6H PRN PRN Reason: Pain, moderate (4-7) Stop: 08/28/18 11:51 Last Admin: 08/25/18 21:52 Dose: 1 tab Rosuvastatin Calcium (Crestor) 5 mg PO HS [facility] Last Admin: 08/25/18 21:52 Dose: 5 mg Sevelamer Carbonate (Renvela) 800 mg PO TIDCC [facility] Last Admin: 08/25/18 17:28 Dose: 800 mg Vitamin B Complex/Vit C/Folic Acid (Nephro-Gaby) 1 tab PO DAILY [facility] Last Admin: 08/25/18 10:58 Dose: 1 tab Results - Vital Signs Recent Vital Signs: Last Vital Signs Temp 97.5 F L 08/25/18 15:00 Pulse 63 08/25/18 15:50 Resp 20 08/25/18 15:00 BP 150/80 08/25/18 21:55 Pulse Ox 95 08/25/18 15:00 - Labs Result Diagrams: 08/24/18 10:15 08/24/18 10:15 Labs: Laboratory Results - last 24 hr 08/25/18 08/25/18 08/25/18 06:56 11:31 16:36 POC Glucose (mg/dL) 133 H 256 H 50 L 08/25/18 08/25/18 08/25/18 16:38 16:54 17:14 POC Glucose (mg/dL) 47 L 44 L 108 08/25/18 21:21 POC Glucose (mg/dL) 263 H Assessment & Plan - Assessment and Plan (Free Text) Assessment: Syncope HTN'CKD on HD Check ECHO, ROMIs and Carotid duplex Neuro eval
[2018-08-26] MEDS: Oxycodone/Acetaminophen 5/325 mg Tab PO PRN ×3 (06:40→23:52)
--- NOTE | 2018-08-26 06:58 | PN ---
DATE: 08/25/2018 SUBJECTIVE: The patient denied any dizziness or chest pain. He denies any shortness of breath. His blood sugars have been fluctuating. He denied any cardiopulmonary distress. He has some chest pain upon deep inspiration. He denies any fever or chills. PHYSICAL EXAMINATION: VITAL SIGNS: Blood pressure 155/85, pulse 63, respiratory rate 20, temperature 97.5. LUNGS: Bilaterally clear. No rales. No rhonchi. CARDIOVASCULAR SYSTEM: S1 and S2 plus S4 positive. ABDOMEN: Soft, nontender. Bowel sounds are positive. CENTRAL NERVOUS SYSTEM: Awake, alert, oriented x3. Cranial nerve II through XII are normal. Power 5/5 x4. Plantars are downgoing. ASSESSMENT: 1. Syncope, rule out coronary ischemia, rule out cardiac arrhythmia, rule out congestive heart failure, rule out hypoglycemia. 2. Poorly controlled hypertension. 3. Poorly controlled diabetes. 4. End-stage renal disease, on hemodialysis. PLAN: Continue hemodialysis. Neuro checks. Fall and seizure precautions. Cardiology workup. Tight blood sugar control and to avoid hypoglycemia. Monitor the patient. Kalpesh Quinones MD
[2018-08-26] MEDS: (Novolin R) Insulin Human Regular 100 units/ml vial SC SCH ×4 (08:37→21:19)
[2018-08-26] MEDS ORDERED: NIFEdipine 30 mg ER Tab PO SCH (10:00)
[2018-08-26] MEDS: (Novolin 70/30) NPH/Regular 70/30 Units/ml 10 ml vial SC SCH (10:20)
[2018-08-26] MEDS: NIFEdipine 30 mg ER Tab PO SCH (13:38)
[2018-08-26] MEDS: Metoprolol Succinate 50 mg XL Tab PO SCH (13:38)
[2018-08-26] MEDS: Multivitamin Vitamin B Complex (Nephro-Vite) Tab PO SCH (13:38)
--- NOTE | 2018-08-26 13:41 | CP.PCM.CON ---
History of Present Illness - History of Present Illness History of Present Illness: Nephrology Consultation Note: Assessment:Critical Syncope HTN emergency with pulm edema Diabetic chronic Kidney Disease (E11.22) Hypertensive Chronic Kidney Disease (I12.0) End stage renal disease (N18.6) dependence on hemodialysis (Z99.2) (TTS) via AVF Hyperphosphatemia (E83.39), Secondary Hyperparathyroidism (E21.1), HTN (I12.0) Plan: Pt in need for dialysis today. Will plan for dialysis as ordered. Continue with Nephrovite 1 tab/day. Continue with phos binders home dose BP control with meds as ordered. Patient not on RAAS carol, re-assess after HD Glycemic control, Dialysis consistent diet last Hb 10.2 and BP high, no VINCE for now. Further work up/management as per primary team Dose meds/antibiotics (if needed) for ESRD status. Avoid fleets enema/magnesium based laxatives. cardiology eval. Thanks for allowing me to participate in care of your patient. Will follow patient with you. Please call if any Qs. d/w ER Dr Taqueria [place] Office: [phone] Chief Complaint;syncope reason for consult: ESRD HPI: Pt is a 53 y/o M with hx of ESRD on hemodialysis (TTS) via AVF, last dialysis sat, chronic anemia, hyperphosphatemia, secondary hyperparathyroidism, Diabetes Mellitus, hypertension presented with complaints of syncope which required CPR. pt brought to hospital for further eval c/o chest pain after CPR> denies Chest pain prior to that Denies palpitation leg swelling. no headache/weakness has SOB as well ROS: Constitutional Symptoms: Denies fever. No chills. No Recent Weight Changes Cardiovascular: c/o chest pain. There is c/o shortness of breath. No palpitations. Pulmonary: c/o shortness of breath or cough. Gastrointestinal: denies abdominal pain No nausea. No vomiting. Denies change in bowel habits. Denies Bleeding Genitourinary: makes small urine. No associated pain or blood. Neurological: Denies headaches. No dizziness. has syncope Dermatological: No Rash or Bruising or ulcers. Rest all other negative except as mentioned in HPI Physical Examination: General Appearance: Comfortable, in no acute respiratory distress, co-operative . Vitals reviewed and noted as below Head; Atraumatic, normocephalic ENT: no ulcers no thrush. Tongue is midline. Oropharynx: no rash or ulcers. EYES: Pupils are equal, round and reactive to light accommodation. Eye muscles and extraocular movement intact. Sclera is anicteric. has diplopia Neck; supple no lymphadenopathy, no thyromegaly or bruit Lungs: Normal respiratory rate/effort. Breath sounds bilateral reduced at bases with cracles Heart: Normal rate. s1s2 normal. No rub or gallop. has chest wall tenderness Extremities: no edema. No varicose veins Neurological: Patient is alert, awake and oriented to person, place and time. No focal deficit. Strength bilateral appropriate and equal Skin: Warm and dry. Normal turgor. No rash. Palpitation: Normal elasticity for age Abdomen: Abdomen is soft. Bowel sounds +. There is no abdominal tenderness, no guarding/rigidity or organomegaly Psych: normal insight and normal affect/mood MSK: no joint tenderness or swelling. Digits and nails normal, no deformity : kidney or bladder not palpable Access: AVF Labs/imaging reviewed. Past medical history, past surgical history, family history, social history, al lergy reviewed and noted as below Family Hx: no hx of CKD. Non contributory Past Patient History - Infectious Disease Hx of Infectious Diseases: None - Past Medical History & Family History Past Medical History?: Yes - Past Social History Smoking Status: Never Smoked - CARDIAC Hx Congestive Heart Failure: Yes (2003) Hx Hypercholesterolemia: Yes Hx Hypertension: Yes Hx Peripheral Edema: Yes - PULMONARY Hx Respiratory Disorders: Yes Other/Comment: HX OF ACUTE RENAL FAILURE ON VENTILATOR FOR 1 MONTH IN (RIGHT LUNG COLLAPSE) LOWER RIGHT LOBE REMOVED 2003 - HEENT Hx HEENT Problems: Yes Hx Cataracts: Yes (both eyes, BOTH CATARACT EXTRACTION) - RENAL Hx Chronic Kidney Disease: Yes (Stage III kidney dis) - ENDOCRINE/METABOLIC Hx Endocrine Disorders: Yes Hx Diabetes Mellitus Type 2: Yes - HEMATOLOGICAL/ONCOLOGICAL Hx Blood Disorders: No - INTEGUMENTARY Hx Dermatological Problems: No - MUSCULOSKELETAL/RHEUMATOLOGICAL Hx Arthritis: Yes (HX OF R ANKLE PAIN AND FALLS + FOOT DRAG USE OF R AFO) - GASTROINTESTINAL Hx Gastrointestinal Disorders: No - GENITOURINARY/GYNECOLOGICAL Hx Genitourinary Disorders: No - PSYCHIATRIC Hx Substance Use: No - SURGICAL HISTORY Hx Surgeries: Yes Hx Cataract Extraction: Yes (BILAT.) Hx Eye Surgery: Yes (cataract sx both eyes) Hx Pulmonary Surgery: Yes (01/2004 arf on ventilator lungs collapsed chest tube) Other/Comment: rt.arm fistula - ANESTHESIA Hx Anesthesia: Yes Hx Anesthesia Reactions: No Hx Malignant Hyperthermia: No Meds Allergies/Adverse Reactions: Allergies Allergy/AdvReac Type Severity Reaction Status Date / Time No Known Allergies Allergy Verified 08/24/18 09:35 Results - Vital Signs Recent Vital Signs: Last Vital Signs Temp 98.2 F 08/24/18 14:25 Pulse 74 08/24/18 14:25 Resp 16 08/24/18 14:25 BP 192/108 H 08/24/18 15:55 Pulse Ox 98 08/24/18 14:25 - Labs Result Diagrams: 08/24/18 10:15 08/24/18 10:15 Labs: Laboratory Results - last 24 hr 08/24/18 08/24/18 08/24/18 09:33 10:15 10:15 WBC 9.4 D RBC 3.04 L Hgb 10.2 L Hct 29.9 L MCV 98.5 H D MCH 33.7 H MCHC 34.2 RDW 14.5 Plt Count 158 MPV 9.2 Neut % (Auto) 81.5 H Lymph % (Auto) 8.9 L Saunders % (Auto) 6.2 Eos % (Auto) 2.5 Baso % (Auto) 0.9 Neut # (Auto) 7.7 H Lymph # (Auto) 0.8 L Saunders # (Auto) 0.6 Eos # (Auto) 0.2 Baso # (Auto) 0.1 Neutrophils % (Manual) 83 H Band Neutrophils % 5 H Lymphocytes % (Manual) 4 L Monocytes % (Manual) 5 Eosinophils % (Manual) 3 Platelet Estimate Normal RBC Morphology Normal Sodium 138 Potassium 4.9 Chloride 98 Carbon Dioxide 26 Anion Gap 18 BUN 66 H Creatinine 11.3 H* Est GFR ( Amer) 6 Est GFR (Non-Af Amer) 5 POC Glucose (mg/dL) 204 H Random Glucose 174 H D Calcium 9.7 Total Bilirubin 0.9 AST 31 ALT 20 L D Alkaline Phosphatase 122 Troponin I < 0.0120 NT-Pro-B Natriuret Pep 29036 H Total Protein 8.0 Albumin 4.5 Globulin 3.5 Albumin/Globulin Ratio 1.3 08/24/18 16:05 WBC RBC Hgb Hct MCV MCH MCHC RDW Plt Count MPV Neut % (Auto) Lymph % (Auto) Saunders % (Auto) Eos % (Auto) Baso % (Auto) Neut # (Auto) Lymph # (Auto) Saunders # (Auto) Eos # (Auto) Baso # (Auto) Neutrophils % (Manual) Band Neutrophils % Lymphocytes % (Manual) Monocytes % (Manual) Eosinophils % (Manual) Platelet Estimate RBC Morphology Sodium Potassium Chloride Carbon Dioxide Anion Gap BUN Creatinine Est GFR ( Amer) Est GFR (Non-Af Amer) POC Glucose (mg/dL) 86 Random Glucose Calcium Total Bilirubin AST ALT Alkaline Phosphatase Troponin I NT-Pro-B Natriuret Pep Total Protein Albumin Globulin Albumin/Globulin Ratio
--- NOTE | 2018-08-26 13:42 | CP.PCM.PN ---
Subjective - Date & Time of Evaluation Date of Evaluation: 08/25/18 Time of Evaluation: 12:09 - Subjective Subjective: Nephrology Consultation Note: Assessment:Critical Syncope HTN emergency with pulm edema Diabetic chronic Kidney Disease (E11.22) Hypertensive Chronic Kidney Disease (I12.0) End stage renal disease (N18.6) dependence on hemodialysis (Z99.2) (TTS) via AVF Hyperphosphatemia (E83.39), Secondary Hyperparathyroidism (E21.1), HTN (I12.0) Plan: Pt not in need for dialysis today. Will plan for dialysis TTS as ordered. Continue with Nephrovite 1 tab/day. Continue with phos binders home dose BP control with meds as ordered. Patient not on RAAS carol, may add if BP stays high Glycemic control, Dialysis consistent diet last Hb 10.2 and BP high, no VINCE for now. Further work up/management as per primary team Dose meds/antibiotics (if needed) for ESRD status. Avoid fleets enema/magnesium based laxatives. cardiology eval. Thanks for allowing me to participate in care of your patient. Will follow patient with you. Please call if any Qs. d/w ER Dr Taqueria Carson Office: [phone] Chief Complaint;syncope reason for consult: ESRD HPI: Pt is a 53 y/o M with hx of ESRD on hemodialysis (TTS) via AVF, last dialysis sat, chronic anemia, hyperphosphatemia, secondary hyperparathyroidism, Diabetes Mellitus, hypertension presented with complaints of syncope which required CPR. pt brought to hospital for further eval c/o chest pain after CPR> denies Chest pain prior to that Denies palpitation leg swelling. no headache/weakness has SOB as well ROS: Constitutional Symptoms: Denies fever. No chills. No Recent Weight Changes Cardiovascular: c/o chest pain. There is no shortness of breath. No palpitations. Pulmonary: no shortness of breath or cough. Gastrointestinal: denies abdominal pain No nausea. No vomiting. Denies change in bowel habits. Denies Bleeding Genitourinary: makes small urine. No associated pain or blood. Neurological: Denies headaches. No dizziness. has syncope Dermatological: No Rash or Bruising or ulcers. Rest all other negative except as mentioned in HPI Physical Examination: General Appearance: Comfortable, in no acute respiratory distress, co-operative . Vitals reviewed and noted as below Head; Atraumatic, normocephalic ENT: no ulcers no thrush. Tongue is midline. Oropharynx: no rash or ulcers. EYES: Pupils are equal, round and reactive to light accommodation. Eye muscles and extraocular movement intact. Sclera is anicteric. has diplopia Neck; supple no lymphadenopathy, no thyromegaly or bruit Lungs: Normal respiratory rate/effort. Breath sounds bilateral improved Heart: Normal rate. s1s2 normal. No rub or gallop. has chest wall tenderness Extremities: no edema. No varicose veins Neurological: Patient is alert, awake and oriented to person, place and time. No focal deficit. Strength bilateral appropriate and equal Skin: Warm and dry. Normal turgor. No rash. Palpitation: Normal elasticity for age Abdomen: Abdomen is soft. Bowel sounds +. There is no abdominal tenderness, no guarding/rigidity or organomegaly Psych: normal insight and normal affect/mood MSK: no joint tenderness or swelling. Digits and nails normal, no deformity : kidney or bladder not palpable Access: AVF Labs/imaging reviewed. Past medical history, past surgical history, family history, social history, allergy reviewed and noted as below Family Hx: no hx of CKD. Non contributory Objective - Vital Signs/Intake and Output Vital Signs (last 24 hours): Temp Pulse Resp BP Pulse Ox 97.8 F 67 20 139/75 94 L 08/25/18 07:07 08/25/18 07:07 08/25/18 07:07 08/25/18 11:00 08/25/18 07:07 Intake and Output: 08/25/18 08/25/18 06:59 18:59 Intake Total 250 Output Total 150 Balance 100 - Medications Medications: Current Medications Acetaminophen (Tylenol 325mg Tab) 650 mg PO Q6 PRN PRN Reason: Pain, moderate (4-7) Last Admin: 08/25/18 06:48 Dose: 650 mg Furosemide (Lasix) 60 mg IVP Q12 [facility] Last Admin: 08/25/18 11:00 Dose: 60 mg Heparin Sodium (Porcine) (Heparin) 5,000 units SC Q12 [facility] Last Admin: 08/25/18 10:58 Dose: 5,000 units Insulin Human Isoph/Insulin Regular (Novolin 70/30 (70/30 Units/Ml) 10 Ml) 28 units SC QAM [facility] Last Admin: 08/25/18 11:03 Dose: 28 unit Insulin Human Isoph/Insulin Regular (Novolin 70/30 (70/30 Units/Ml) 10 Ml) 18 units SC QPM [facility] Insulin Human Regular (Novolin R) 0 unit SC ACHS [facility]; Protocol Last Admin: 08/25/18 11:49 Dose: Not Given Metoprolol Succinate (Toprol Xl) 50 mg PO DAILY [facility] Last Admin: 08/25/18 10:58 Dose: 50 mg Nifedipine (Procardia Xl) 30 mg PO DAILY [facility] Last Admin: 08/25/18 11:00 Dose: 30 mg Oxycodone/Acetaminophen (Percocet 5/325 Mg Tab) 1 tab PO Q6H PRN PRN Reason: Pain, moderate (4-7) Stop: 08/28/18 11:51 Rosuvastatin Calcium (Crestor) 5 mg PO HS [facility] Last Admin: 08/24/18 21:37 Dose: 5 mg Sevelamer Carbonate (Renvela) 800 mg PO TIDCC [facility] Last Admin: 08/25/18 10:58 Dose: 800 mg Vitamin B Complex/Vit C/Folic Acid (Nephro-Gaby) 1 tab PO DAILY [facility] Last Admin: 08/25/18 10:58 Dose: 1 tab - Labs Labs: 08/24/18 10:15 08/24/18 10:15
--- NOTE | 2018-08-26 13:43 | CP.PCM.PN ---
Subjective - Date & Time of Evaluation Date of Evaluation: 08/26/18 Time of Evaluation: 13:42 - Subjective Subjective: Nephrology Consultation Note: Assessment: Stable Syncope HTN emergency with pulm edema Diabetic chronic Kidney Disease (E11.22) Hypertensive Chronic Kidney Disease (I12.0) End stage renal disease (N18.6) dependence on hemodialysis (Z99.2) (TTS) via AVF Hyperphosphatemia (E83.39), Secondary Hyperparathyroidism (E21.1), HTN (I12.0) Plan: Will plan for dialysis TTS as ordered. Continue with Nephrovite 1 tab/day. Continue with phos binders home dose BP control with meds as ordered. Patient not on RAAS carol, may add if BP stays high Glycemic control, Dialysis consistent diet last Hb 10.2 no VINCE for now. Further work up/management as per primary team Dose meds/antibiotics (if needed) for ESRD status. Avoid fleets enema/magnesium based laxatives. cardiology eval ongoing, pt planned for coronary angiogram Thanks for allowing me to participate in care of your patient. Will follow patient with you. Please call if any Qs. d/w ER Dr Taqueria Carson Office: [phone] Chief Complaint;syncope reason for consult: ESRD HPI: Pt is a 53 y/o M with hx of ESRD on hemodialysis (TTS) via AVF, last dialysis sat, chronic anemia, hyperphosphatemia, secondary hyperparathyroidism, Diabetes Mellitus, hypertension presented with complaints of syncope which required CPR. pt brought to hospital for further eval c/o chest pain after CPR> denies Chest pain prior to that Denies palpitation leg swelling. no headache/weakness has SOB as well ROS: Constitutional Symptoms: Denies fever. No chills. No Recent Weight Changes Cardiovascular: c/o chest pain. There is no shortness of breath. No palpitations. Pulmonary: no shortness of breath or cough. Gastrointestinal: denies abdominal pain No nausea. No vomiting. Denies change in bowel habits. Denies Bleeding Genitourinary: makes small urine. No associated pain or blood. Neurological: Denies headaches. No dizziness. has syncope Dermatological: No Rash or Bruising or ulcers. Rest all other negative except as mentioned in HPI Physical Examination: seen on HD General Appearance: Comfortable, in no acute respiratory distress, co-operative . Vitals reviewed and noted as below Head; Atraumatic, normocephalic ENT: no ulcers no thrush. Tongue is midline. Oropharynx: no rash or ulcers. EYES: Pupils are equal, round and reactive to light accommodation. Eye muscles and extraocular movement intact. Sclera is anicteric. has diplopia Neck; supple no lymphadenopathy, no thyromegaly or bruit Lungs: Normal respiratory rate/effort. Breath sounds bilateral improved Heart: Normal rate. s1s2 normal. No rub or gallop. has chest wall tenderness Extremities: no edema. No varicose veins Neurological: Patient is alert, awake and oriented to person, place and time. No focal deficit. Strength bilateral appropriate and equal Skin: Warm and dry. Normal turgor. No rash. Palpitation: Normal elasticity for age Abdomen: Abdomen is soft. Bowel sounds +. There is no abdominal tenderness, no guarding/rigidity or organomegaly Psych: normal insight and normal affect/mood MSK: no joint tenderness or swelling. Digits and nails normal, no deformity : kidney or bladder not palpable Access: AVF Labs/imaging reviewed. Past medical history, past surgical history, family history, social history, allergy reviewed and noted as below Family Hx: no hx of CKD. Non contributory Objective - Vital Signs/Intake and Output Vital Signs (last 24 hours): Temp Pulse Resp BP Pulse Ox 97.3 F L 67 19 131/83 99 08/26/18 12:35 08/26/18 12:35 08/26/18 12:35 08/26/18 12:35 08/26/18 12:35 - Medications Medications: Current Medications Acetaminophen (Tylenol 325mg Tab) 650 mg PO Q6 PRN PRN Reason: Pain, moderate (4-7) Last Admin: 08/25/18 06:48 Dose: 650 mg Furosemide (Lasix) 60 mg IVP Q12 [facility] Last Admin: 08/26/18 10:20 Dose: Not Given Heparin Sodium (Porcine) (Heparin) 5,000 units SC Q12 [facility] Last Admin: 08/26/18 10:20 Dose: Not Given Insulin Human Isoph/Insulin Regular (Novolin 70/30 (70/30 Units/Ml) 10 Ml) 28 units SC QAM [facility] Last Admin: 08/26/18 10:20 Dose: Not Given Insulin Human Isoph/Insulin Regular (Novolin 70/30 (70/30 Units/Ml) 10 Ml) 18 units SC QPM [facility] Last Admin: 08/25/18 17:01 Dose: Not Given Insulin Human Regular (Novolin R) 0 unit SC ACHS [facility]; Protocol Last Admin: 08/26/18 13:37 Dose: 3 unit Metoprolol Succinate (Toprol Xl) 50 mg PO DAILY [facility] Last Admin: 08/26/18 13:38 Dose: Not Given Nifedipine (Procardia Xl) 30 mg PO DAILY [facility] Last Admin: 08/26/18 13:38 Dose: 30 mg Oxycodone/Acetaminophen (Percocet 5/325 Mg Tab) 1 tab PO Q6H PRN PRN Reason: Pain, moderate (4-7) Stop: 08/28/18 11:51 Last Admin: 08/26/18 06:40 Dose: 1 tab Rosuvastatin Calcium (Crestor) 5 mg PO HS [facility] Last Admin: 08/25/18 21:52 Dose: 5 mg Sevelamer Carbonate (Renvela) 800 mg PO TIDCC [facility] Last Admin: 08/26/18 13:37 Dose: 800 mg Vitamin B Complex/Vit C/Folic Acid (Nephro-Gaby) 1 tab PO DAILY [facility] Last Admin: 08/26/18 13:38 Dose: 1 tab - Labs Labs: 08/24/18 10:15 08/24/18 10:15
[2018-08-26] MEDS ORDERED: Glucagon Recombinant 1 mg Inj IM PRN (16:00)
[2018-08-26] MEDS ORDERED: Dextrose 50% SYRINGE Inj (50 ml) IVP PRN (16:00)
[2018-08-26] MEDS ORDERED: (Novolin 70/30) NPH/Regular 70/30 Units/ml 10 ml vial SC SCH ×2 (16:00)
--- NOTE | 2018-08-26 21:57 | CP.PCM.PN ---
Subjective - Date & Time of Evaluation Date of Evaluation: 08/26/18 Time of Evaluation: 08:20 - Subjective Subjective: dictated Objective - Vital Signs/Intake and Output Vital Signs (last 24 hours): Temp Pulse Resp BP Pulse Ox 97.9 F 66 20 111/72 95 08/26/18 15:00 08/26/18 15:00 08/26/18 15:00 08/26/18 21:21 08/26/18 15:00 - Medications Medications: Current Medications Acetaminophen (Tylenol 325mg Tab) 650 mg PO Q6 PRN PRN Reason: Pain, moderate (4-7) Last Admin: 08/25/18 06:48 Dose: 650 mg Dextrose (Dextrose 50% Inj) 0 ml IVP .STAT PRN; Protocol PRN Reason: Hypoglycemia Protocol Last Admin: 08/25/18 15:30 Dose: 25 ml Dextrose (Glutose 15) 0 gm PO .ONCE PRN; Protocol PRN Reason: Hypoglycemia Protocol Furosemide (Lasix) 60 mg IVP Q12 [facility] Last Admin: 08/26/18 21:21 Dose: 60 mg Glucagon (Glucagen Diagnostic Kit) 0 mg IM .STAT PRN; Protocol PRN Reason: Hypoglycemia Protocol Heparin Sodium (Porcine) (Heparin) 5,000 units SC Q12 [facility] Last Admin: 08/26/18 21:21 Dose: 5,000 units Dextrose (Dextrose 5% In Water 1000 Ml) 1,000 mls @ 0 mls/hr IV .Q0M PRN; Protocol PRN Reason: Hypoglycemia Protocol Insulin Human Isoph/Insulin Regular (Novolin 70/30 (70/30 Units/Ml) 10 Ml) 24 units SC QAM [facility] Insulin Human Isoph/Insulin Regular (Novolin 70/30 (70/30 Units/Ml) 10 Ml) 14 units SC QPM [facility] Last Admin: 08/26/18 17:26 Dose: 14 unit Insulin Human Regular (Novolin R) 0 unit SC ACHS [facility]; Protocol Last Admin: 08/26/18 21:19 Dose: Not Given Metoprolol Succinate (Toprol Xl) 50 mg PO DAILY [facility] Last Admin: 08/26/18 13:38 Dose: Not Given Nifedipine (Procardia Xl) 30 mg PO DAILY [facility] Last Admin: 08/26/18 13:38 Dose: 30 mg Oxycodone/Acetaminophen (Percocet 5/325 Mg Tab) 1 tab PO Q6H PRN PRN Reason: Pain, moderate (4-7) Stop: 08/28/18 11:51 Last Admin: 08/26/18 17:29 Dose: 1 tab Rosuvastatin Calcium (Crestor) 5 mg PO HS [facility] Last Admin: 08/26/18 21:21 Dose: 5 mg Sevelamer Carbonate (Renvela) 800 mg PO TIDCC [facility] Last Admin: 08/26/18 17:26 Dose: 800 mg Vitamin B Complex/Vit C/Folic Acid (Nephro-Gaby) 1 tab PO DAILY [facility] Last Admin: 08/26/18 13:38 Dose: 1 tab - Labs Labs: 08/24/18 10:15 08/24/18 10:15
--- NOTE | 2018-08-27 00:40 | PN ---
DATE: 08/26/2018 SUBJECTIVE: The patient is feeling better. He is afebrile. No dizziness. No syncope. PHYSICAL EXAMINATION: VITAL SIGNS: Blood pressure 132/77, pulse 66, respiratory rate 20, and temperature 97.9. GENERAL: The patient did not have any episodes of hypoglycemia. LUNGS: Clear. No rales. No rhonchi. CARDIOVASCULAR SYSTEM: S1 and S2, regular. ABDOMEN: Soft and nontender. Bowel sounds are positive. ASSESSMENT: 1. Status post syncope, rule out coronary ischemia. Rule out cardiac arrhythmia, rule out hypoglycemia. 2. Chronic kidney disease, on hemodialysis. 3. Type 2 diabetes. 4. Hypertension. PLAN: Cardiac catheterization. Monitor the patient. Kalpesh Quinones MD
--- NOTE | 2018-08-27 06:19 | CP.PCM.PN ---
Subjective - Date & Time of Evaluation Date of Evaluation: 08/26/18 Time of Evaluation: 16:45 - Subjective Subjective: Patient seen and evaluated Denies chest pain, dyspnea and recurrent syncopial episodes Review Of Systems Except As Marked, All Systems Reviewed And Found Negative. Constitutional: Negative for: Fever, Chills Cardiovascular: Positive for: Chest Pain Respiratory: Positive for: Shortness of Breath Gastrointestinal: Negative for: Nausea, Vomiting, Abdominal Pain Neurological: Positive for: Other (syncopal episode) Physical Exam - Physical Exam Appears: Non-toxic, No Acute Distress Skin: Normal Color, Warm, Dry Head: Atraumatic, Normacephalic Eye(s): bilateral: Normal Inspection Nose: Normal Oral Mucosa: Moist Neck: Supple Chest: Symmetrical, Tenderness (left chest wall tenderness), No Ecchymosis Cardiovascular: Rhythm Regular Respiratory: Normal Breath Sounds, No Rales, No Rhonchi, No Wheezing Gastrointestinal/Abdominal: Normal Exam, Soft, No Tenderness, No Guarding, No Rebound Extremity: Normal ROM, Other (AV graft to LUE with positive thrill, long standing brace to right leg) Neurological/Psych: Oriented x3, Normal Speech Objective - Vital Signs/Intake and Output Vital Signs (last 24 hours): Temp Pulse Resp BP Pulse Ox 98.1 F 76 20 144/78 95 08/26/18 23:17 08/26/18 23:17 08/26/18 23:17 08/26/18 23:17 08/26/18 23:17 Intake and Output: 08/26/18 08/27/18 18:59 06:59 Intake Total 400 Balance 400 - Medications Medications: Current Medications Acetaminophen (Tylenol 325mg Tab) 650 mg PO Q6 PRN PRN Reason: Pain, moderate (4-7) Last Admin: 08/25/18 06:48 Dose: 650 mg Dextrose (Dextrose 50% Inj) 0 ml IVP .STAT PRN; Protocol PRN Reason: Hypoglycemia Protocol Last Admin: 08/25/18 15:30 Dose: 25 ml Dextrose (Glutose 15) 0 gm PO .ONCE PRN; Protocol PRN Reason: Hypoglycemia Protocol Glucagon (Glucagen Diagnostic Kit) 0 mg IM .STAT PRN; Protocol PRN Reason: Hypoglycemia Protocol Heparin Sodium (Porcine) (Heparin) 5,000 units SC Q12 [facility] Last Admin: 08/26/18 21:21 Dose: 5,000 units Dextrose (Dextrose 5% In Water 1000 Ml) 1,000 mls @ 0 mls/hr IV .Q0M PRN; Protocol PRN Reason: Hypoglycemia Protocol Insulin Human Isoph/Insulin Regular (Novolin 70/30 (70/30 Units/Ml) 10 Ml) 26 units SC QAM [facility] Insulin Human Isoph/Insulin Regular (Novolin 70/30 (70/30 Units/Ml) 10 Ml) 16 units SC QPM [facility] Insulin Human Regular (Novolin R) 0 unit SC ACHS [facility]; Protocol Last Admin: 08/26/18 21:19 Dose: Not Given Metoprolol Succinate (Toprol Xl) 50 mg PO DAILY [facility] Last Admin: 08/26/18 13:38 Dose: Not Given Oxycodone/Acetaminophen (Percocet 5/325 Mg Tab) 1 tab PO Q6H PRN PRN Reason: Pain, moderate (4-7) Stop: 08/28/18 11:51 Last Admin: 08/26/18 23:52 Dose: 1 tab Rosuvastatin Calcium (Crestor) 5 mg PO HS [facility] Last Admin: 08/26/18 21:21 Dose: 5 mg Sevelamer Carbonate (Renvela) 800 mg PO TIDCC [facility] Last Admin: 08/26/18 17:26 Dose: 800 mg Vitamin B Complex/Vit C/Folic Acid (Nephro-Gaby) 1 tab PO DAILY [facility] Last Admin: 08/26/18 13:38 Dose: 1 tab - Labs Labs: 08/24/18 10:15 08/24/18 10:15 Assessment and Plan - Assessment and Plan (Free Text) Assessment: Syncope HTN'CKD on HD Normal ECHO, ROMIs and Carotid duplex Neuro eval
--- NOTE | 2018-08-27 07:40 | CP.PCM.CON ---
History of Present Illness - History of Present Illness History of Present Illness: CONSULTATION DICTATED NEW SYNCOPE R/O NEUROGENIC CAUSE Sz Vs VBI CONTINUE ANTIPLATELETS WITH ARB AND STATIN NERUOPATHY MRI R/O MASS Vs ISCHEMIA EEG Past Patient History - Infectious Disease Hx of Infectious Diseases: None - Past Medical History & Family History Past Medical History?: Yes - Past Social History Smoking Status: Never Smoked - CARDIAC Hx Congestive Heart Failure: Yes (2003) Hx Hypercholesterolemia: Yes Hx Hypertension: Yes Hx Peripheral Edema: Yes - PULMONARY Hx Respiratory Disorders: Yes Other/Comment: HX OF ACUTE RENAL FAILURE ON VENTILATOR FOR 1 MONTH IN (RIGHT LUNG COLLAPSE) LOWER RIGHT LOBE REMOVED 2003 - HEENT Hx HEENT Problems: Yes Hx Cataracts: Yes (both eyes, BOTH CATARACT EXTRACTION) - RENAL Hx Chronic Kidney Disease: Yes (Stage III kidney dis) - ENDOCRINE/METABOLIC Hx Endocrine Disorders: Yes Hx Diabetes Mellitus Type 2: Yes - HEMATOLOGICAL/ONCOLOGICAL Hx Blood Disorders: No - INTEGUMENTARY Hx Dermatological Problems: No - MUSCULOSKELETAL/RHEUMATOLOGICAL Hx Arthritis: Yes (HX OF R ANKLE PAIN AND FALLS + FOOT DRAG USE OF R AFO) - GASTROINTESTINAL Hx Gastrointestinal Disorders: No - GENITOURINARY/GYNECOLOGICAL Hx Genitourinary Disorders: No - PSYCHIATRIC Hx Substance Use: No - SURGICAL HISTORY Hx Surgeries: Yes Hx Cataract Extraction: Yes (BILAT.) Hx Eye Surgery: Yes (cataract sx both eyes) Hx Pulmonary Surgery: Yes (01/2004 arf on ventilator lungs collapsed chest tube) Other/Comment: rt.arm fistula - ANESTHESIA Hx Anesthesia: Yes Hx Anesthesia Reactions: No Hx Malignant Hyperthermia: No Meds Allergies/Adverse Reactions: Allergies Allergy/AdvReac Type Severity Reaction Status Date / Time No Known Allergies Allergy Verified 08/24/18 09:35 - Medications Medications: Current Medications Acetaminophen (Tylenol 325mg Tab) 650 mg PO Q6 PRN PRN Reason: Pain, moderate (4-7) Last Admin: 08/25/18 06:48 Dose: 650 mg Dextrose (Dextrose 50% Inj) 0 ml IVP .STAT PRN; Protocol PRN Reason: Hypoglycemia Protocol Last Admin: 08/25/18 15:30 Dose: 25 ml Dextrose (Glutose 15) 0 gm PO .ONCE PRN; Protocol PRN Reason: Hypoglycemia Protocol Glucagon (Glucagen Diagnostic Kit) 0 mg IM .STAT PRN; Protocol PRN Reason: Hypoglycemia Protocol Heparin Sodium (Porcine) (Heparin) 5,000 units SC Q12 [facility] Last Admin: 08/26/18 21:21 Dose: 5,000 units Dextrose (Dextrose 5% In Water 1000 Ml) 1,000 mls @ 0 mls/hr IV .Q0M PRN; Protocol PRN Reason: Hypoglycemia Protocol Insulin Human Isoph/Insulin Regular (Novolin 70/30 (70/30 Units/Ml) 10 Ml) 26 units SC QAM [facility] Insulin Human Isoph/Insulin Regular (Novolin 70/30 (70/30 Units/Ml) 10 Ml) 16 units SC QPM [facility] Insulin Human Regular (Novolin R) 0 unit SC ACHS [facility]; Protocol Last Admin: 08/26/18 21:19 Dose: Not Given Metoprolol Succinate (Toprol Xl) 50 mg PO DAILY [facility] Last Admin: 08/26/18 13:38 Dose: Not Given Oxycodone/Acetaminophen (Percocet 5/325 Mg Tab) 1 tab PO Q6H PRN PRN Reason: Pain, moderate (4-7) Stop: 08/28/18 11:51 Last Admin: 08/26/18 23:52 Dose: 1 tab Rosuvastatin Calcium (Crestor) 5 mg PO HS [facility] Last Admin: 08/26/18 21:21 Dose: 5 mg Sevelamer Carbonate (Renvela) 800 mg PO TIDCC [facility] Last Admin: 08/26/18 17:26 Dose: 800 mg Vitamin B Complex/Vit C/Folic Acid (Nephro-Gaby) 1 tab PO DAILY [facility] Last Admin: 08/26/18 13:38 Dose: 1 tab Results - Vital Signs Recent Vital Signs: Last Vital Signs Temp 98.1 F 08/26/18 23:17 Pulse 76 08/26/18 23:17 Resp 20 08/26/18 23:17 BP 144/78 08/26/18 23:17 Pulse Ox 95 08/26/18 23:17 - Labs Result Diagrams: 08/24/18 10:15 08/24/18 10:15 Labs: Laboratory Results - last 24 hr 08/26/18 08/26/18 08/26/18 11:52 16:16 20:51 POC Glucose (mg/dL) 200 H 260 H 97 08/27/18 06:40 POC Glucose (mg/dL) 134 H
[2018-08-27] MEDS: (Novolin R) Insulin Human Regular 100 units/ml vial SC SCH ×4 (08:26→21:41)
[2018-08-27] MEDS: Metoprolol Succinate 50 mg XL Tab PO SCH (09:25)
[2018-08-27] MEDS: Multivitamin Vitamin B Complex (Nephro-Vite) Tab PO SCH (09:25)
[2018-08-27] MEDS: (Novolin 70/30) NPH/Regular 70/30 Units/ml 10 ml vial SC SCH ×2 (09:26→18:32)
[2018-08-27] MEDS: Oxycodone/Acetaminophen 5/325 mg Tab PO PRN ×2 (10:17→22:49)
--- NOTE | 2018-08-27 14:04 | CP.PCM.PN ---
Subjective - Date & Time of Evaluation Date of Evaluation: 08/27/18 Time of Evaluation: 14:03 - Subjective Subjective: Nephrology Consultation Note: Assessment: Stable Syncope HTN emergency with pulm edema Diabetic chronic Kidney Disease (E11.22) Hypertensive Chronic Kidney Disease (I12.0) End stage renal disease (N18.6) dependence on hemodialysis (Z99.2) (TTS) via AVF Hyperphosphatemia (E83.39), Secondary Hyperparathyroidism (E21.1), HTN (I12.0) Plan: Will plan for dialysis TTS as ordered. Continue with Nephrovite 1 tab/day. Continue with phos binders home dose BP control with meds as ordered. Patient not on RAAS carol, will add Glycemic control, Dialysis consistent diet last Hb 10.2 no VINCE for now. Further work up/management as per primary team Dose meds/antibiotics (if needed) for ESRD status. Avoid fleets enema/magnesium based laxatives. cardiology Neuro eval ongoing Thanks for allowing me to participate in care of your patient. Will follow patient with you. Please call if any Qs. had d/w team and Dr TamayoTaqueriarachel Carson Office: [phone] Chief Complaint;syncope reason for consult: ESRD HPI: Pt is a 53 y/o M with hx of ESRD on hemodialysis (TTS) via AVF, last dialysis sat, chronic anemia, hyperphosphatemia, secondary hyperparathyroidism, Diabetes Mellitus, hypertension presented with complaints of syncope which required CPR. pt brought to hospital for further eval c/o chest pain after CPR> denies Chest pain prior to that Denies palpitation leg swelling. no headache/weakness has SOB as well ROS: Constitutional Symptoms: Denies fever. No chills. No Recent Weight Changes Cardiovascular: c/o chest pain. There is no shortness of breath. No palpitatio ns. Pulmonary: no shortness of breath or cough. Gastrointestinal: denies abdominal pain No nausea. No vomiting. Denies change in bowel habits. Denies Bleeding Dermatological: No Rash or Bruising or ulcers. Rest all other negative except as mentioned in HPI Physical Examination: General Appearance: Comfortable, in no acute respiratory distress, co-operative . Vitals reviewed and noted as below Head; Atraumatic, normocephalic ENT: no ulcers no thrush. Tongue is midline. Oropharynx: no rash or ulcers. EYES: Pupils are equal, round and reactive to light accommodation. Eye muscles and extraocular movement intact. Sclera is anicteric. Neck; supple no lymphadenopathy, no thyromegaly or bruit Lungs: Normal respiratory rate/effort. Breath sounds bilateral improved Heart: Normal rate. s1s2 normal. No rub or gallop. has chest wall tenderness Extremities: no edema. No varicose veins Neurological: Patient is alert, awake and oriented to person, place and time. No focal deficit. Strength bilateral appropriate and equal Skin: Warm and dry. Normal turgor. No rash. Palpitation: Normal elasticity for age Abdomen: Abdomen is soft. Bowel sounds +. There is no abdominal tenderness, no guarding/rigidity or organomegaly Psych: normal insight and normal affect/mood MSK: no joint tenderness or swelling. Digits and nails normal, no deformity : kidney or bladder not palpable Access: AVF Labs/imaging reviewed. Past medical history, past surgical history, family history, social history, allergy reviewed and noted as below Family Hx: no hx of CKD. Non contributory Objective - Vital Signs/Intake and Output Vital Signs (last 24 hours): Temp Pulse Resp BP Pulse Ox 97.8 F 73 20 159/88 H 95 08/27/18 07:00 08/27/18 07:00 08/27/18 07:00 08/27/18 07:00 08/27/18 07:00 Intake and Output: 08/27/18 08/27/18 06:59 18:59 Intake Total 400 Balance 400 - Medications Medications: Current Medications Acetaminophen (Tylenol 325mg Tab) 650 mg PO Q6 PRN PRN Reason: Pain, moderate (4-7) Last Admin: 08/25/18 06:48 Dose: 650 mg Dextrose (Dextrose 50% Inj) 0 ml IVP .STAT PRN; Protocol PRN Reason: Hypoglycemia Protocol Last Admin: 08/25/18 15:30 Dose: 25 ml Dextrose (Glutose 15) 0 gm PO .ONCE PRN; Protocol PRN Reason: Hypoglycemia Protocol Glucagon (Glucagen Diagnostic Kit) 0 mg IM .STAT PRN; Protocol PRN Reason: Hypoglycemia Protocol Heparin Sodium (Porcine) (Heparin) 5,000 units SC Q12 [facility] Last Admin: 08/27/18 09:26 Dose: 5,000 units Dextrose (Dextrose 5% In Water 1000 Ml) 1,000 mls @ 0 mls/hr IV .Q0M PRN; Prot ocol PRN Reason: Hypoglycemia Protocol Insulin Human Isoph/Insulin Regular (Novolin 70/30 (70/30 Units/Ml) 10 Ml) 26 units SC QAM [facility] Last Admin: 08/27/18 09:26 Dose: 26 unit Insulin Human Isoph/Insulin Regular (Novolin 70/30 (70/30 Units/Ml) 10 Ml) 16 units SC QPM [facility] Insulin Human Regular (Novolin R) 0 unit SC ACHS ANN; Protocol Last Admin: 08/27/18 12:44 Dose: 2 unit Losartan Potassium (Cozaar) 25 mg PO DAILY [facility] Last Admin: 08/27/18 12:44 Dose: 25 mg Metoprolol Succinate (Toprol Xl) 50 mg PO DAILY [facility] Last Admin: 08/27/18 09:25 Dose: 50 mg Oxycodone/Acetaminophen (Percocet 5/325 Mg Tab) 1 tab PO Q6H PRN PRN Reason: Pain, moderate (4-7) Stop: 08/28/18 11:51 Last Admin: 08/27/18 10:17 Dose: 1 tab Rosuvastatin Calcium (Crestor) 5 mg PO HS [facility] Last Admin: 08/26/18 21:21 Dose: 5 mg Sevelamer Carbonate (Renvela) 800 mg PO TIDCC [facility] Last Admin: 08/27/18 12:44 Dose: 800 mg Vitamin B Complex/Vit C/Folic Acid (Nephro-Gaby) 1 tab PO DAILY [facility] Last Admin: 08/27/18 09:25 Dose: 1 tab - Labs Labs: 08/24/18 10:15 08/24/18 10:15
--- NOTE | 2018-08-27 14:47 | CON ---
DATE: 08/27/2018 ATTENDING PHYSICIAN: Kalpesh Quinones MD. LOCATION: The patient is in room #563, bed B. REASON FOR CONSULTATION: Syncopal attack. CHIEF COMPLAINT: The patient was brought in from dialysis center to the [facility] with a history of witnessed syncopal attack before entering to the dialysis unit. From neurological point of view, I was called in to evaluate him for further management. HISTORY OF PRESENT ILLNESS: Mr. Raymon Bond is a 53-year-old, normally built, right-handed, Divehi-speaking Tajik male. As usual, he was trying to get out of the walking towards the dialysis unit. He told the security engineer he has shortness of breath, advised to call someone to assist him to get into the dialysis unit. At the time he was approaching him, next thing he realized he was in the ambulance. No history of witnessed tonic-clonic activities at the scene. No history of bowel or bladder incontinence at the scene. No similar episodes happened in the past. Following this episode, no history of focal weakness. No history of speech impairment. No history of any new symptoms associating with this problem. No history of chest pain. No history of visual or bulbar dysfunction. PAST MEDICAL HISTORY: History of pneumectomy secondary to the smoking in 2003 on his right lower lung. History of diabetes mellitus more than 25 years, history of dialysis 2 years, history of hypertension, dyslipidemia. PERSONAL HISTORY: Denies smoking or alcohol use. ALLERGIES: NO KNOWN ALLERGIES. MEDICATIONS: Crestor, multivitamin, insulin, oxycodone, Tylenol #3 and Toprol. REVIEW OF SYSTEMS: 12-point system being reviewed. From neuro, new syncopal episode. PHYSICAL EXAMINATION: VITAL SIGNS: Blood pressure 144/78 with mean arterial pressure of 100, respiratory rate 18 regular, pulse rate 76 regular, temperature 98.1. NECK: Supple. No carotid bruits. HEART: Sounds regular. CHEST: Fair air entry. EXTREMITIES: Significant distal muscle atrophy, more pronounced at right first dorsal interossei and other intrinsic muscle groups than left side and both feet intrinsic muscle groups as well atrophied. No fasciculation at rest. NEUROLOGIC: Mental Status: He is awake, alert, oriented to person, place and time. Speech is clear. Naming, repetition, fluency, comprehension all within normal. Cranial nerve examination: Visual field intact. Pupils reactive to light. Extraocular movement normal. No nystagmus. No facial sensory deficit. No facial asymmetry. Hearing is normal. Tongue is midline. Good gag. Motor examination: Outstretched hand with eyes closed, no drift noted. Power is symmetric on either side. Deep tendon reflexes are absent throughout. Plantars are downgoing. Sensory examination: Significant distal sensory motor neuropathy which is closely related to his underlying diabetes mellitus superimposed with renal failure. Coordination: Finger-nose test is intact. Gait: To his baseline broad-based gait using cane. CONCLUSION: On reviewing his history from the records, as well as from the patient, from neurological point of view, he does have a syncopal attack which probably is related to a vertebrobasilar insufficiency or nonconvulsive seizures as from the history. However, other possible causes should be ruled out from cardiac point of view. 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 LABORATORY DATA: Blood workup, WBC 9.4, hemoglobin 10.2, hematocrit 29.9, platelet 158. Sodium 138, potassium 4.9, chloride 98, bicarbonate 26, BUN 66, creatinine 11.3, glucose 256. BNP. 35,800. RECOMMENDATIONS: 1. MRI of the brain without contrast to rule out any ischemic process or any posterior fossa space-occupying lesion. 2. Electroencephalogram to rule out any paroxysmal activities. 3. Keep the mean artery pressure around 100. The patient can ambulate with supervision. 4. Diabetic control and dialysis to be continued. 5. If the patient is medically stable, the patient can be discharged and should have followup visit with me as outpatient for further management for his syncope as well as a cervical myelopathy associating with peripheral neuropathy. Corenll Cruz MD
--- NOTE | 2018-08-27 21:54 | CP.PCM.PN ---
Subjective - Date & Time of Evaluation Date of Evaluation: 08/27/18 Time of Evaluation: 08:40 - Subjective Subjective: dictated Objective - Vital Signs/Intake and Output Vital Signs (last 24 hours): Temp Pulse Resp BP Pulse Ox 97.8 F 67 20 161/91 H 95 08/27/18 15:36 08/27/18 16:00 08/27/18 15:36 08/27/18 15:36 08/27/18 15:36 - Medications Medications: Current Medications Acetaminophen (Tylenol 325mg Tab) 650 mg PO Q6 PRN PRN Reason: Pain, moderate (4-7) Last Admin: 08/25/18 06:48 Dose: 650 mg Dextrose (Dextrose 50% Inj) 0 ml IVP .STAT PRN; Protocol PRN Reason: Hypoglycemia Protocol Last Admin: 08/25/18 15:30 Dose: 25 ml Dextrose (Glutose 15) 0 gm PO .ONCE PRN; Protocol PRN Reason: Hypoglycemia Protocol Glucagon (Glucagen Diagnostic Kit) 0 mg IM .STAT PRN; Protocol PRN Reason: Hypoglycemia Protocol Heparin Sodium (Porcine) (Heparin) 5,000 units SC Q12 [facility] Last Admin: 08/27/18 09:26 Dose: 5,000 units Dextrose (Dextrose 5% In Water 1000 Ml) 1,000 mls @ 0 mls/hr IV .Q0M PRN; Protocol PRN Reason: Hypoglycemia Protocol Insulin Human Isoph/Insulin Regular (Novolin 70/30 (70/30 Units/Ml) 10 Ml) 26 units SC QAM [facility] Last Admin: 08/27/18 09:26 Dose: 26 unit Insulin Human Isoph/Insulin Regular (Novolin 70/30 (70/30 Units/Ml) 10 Ml) 16 units SC QPM [facility] Last Admin: 08/27/18 18:32 Dose: 16 unit Insulin Human Regular (Novolin R) 0 unit SC ACHS [facility]; Protocol Last Admin: 08/27/18 21:41 Dose: Not Given Losartan Potassium (Cozaar) 25 mg PO DAILY [facility] Last Admin: 08/27/18 12:44 Dose: 25 mg Metoprolol Succinate (Toprol Xl) 50 mg PO DAILY [facility] Last Admin: 08/27/18 09:25 Dose: 50 mg Oxycodone/Acetaminophen (Percocet 5/325 Mg Tab) 1 tab PO Q6H PRN PRN Reason: Pain, moderate (4-7) Stop: 08/28/18 11:51 Last Admin: 08/27/18 10:17 Dose: 1 tab Rosuvastatin Calcium (Crestor) 5 mg PO HS [facility] Last Admin: 08/26/18 21:21 Dose: 5 mg Sevelamer Carbonate (Renvela) 800 mg PO TIDCC [facility] Last Admin: 08/27/18 18:33 Dose: 800 mg Vitamin B Complex/Vit C/Folic Acid (Nephro-Gaby) 1 tab PO DAILY [facility] Last Admin: 08/27/18 09:25 Dose: 1 tab - Labs Labs: 08/24/18 10:15 08/24/18 10:15
--- NOTE | 2018-08-28 00:07 | PN ---
DATE: 08/27/2018 SUBJECTIVE: Raymon Bond is feeling better. He is not dizzy. His blood sugars are under better control. He denies any chest pain, palpitation, weakness, or dizziness. He was seen by Cardiology, and he was seen by Neurology. Workup was in progress. Blood sugars are good. No fever. No chills. PHYSICAL EXAMINATION: VITAL SIGNS: Blood pressure was 161/91, pulse 66, respiratory rate is 18, and temperature 97.8. LUNGS: Bilaterally clear. No rales. No rhonchi. CARDIOVASCULAR SYSTEM: PMI not localized. S1, S2 plus S4 positive. ABDOMEN: Soft, nontender. Bowel sounds are positive. RECTAL: No masses. ASSESSMENT: 1. Syncope. Most likely, it was hypoglycemia, could be cardiac arrhythmia, could be coronary ischemia. 2. Chronic kidney disease, on hemodialysis. 3. Type 2 diabetes, poorly controlled with hypoglycemia. 4. Hypertension. PLAN: Neuro evaluation, follow up the workup, cardiac evaluation, possible cath, monitor the patient. Kalpesh Quinones MD
[2018-08-28] MEDS: (Novolin R) Insulin Human Regular 100 units/ml vial SC SCH ×3 (07:58→17:46)
[2018-08-28 08:28] LABS: BASO # 0.1 K/uL (0.0-0.2); BASO % 1.5 % (0.0-2.0); EOS # 0.4 K/uL (0.0-0.7); HEMOGLOBIN 11.7 g/dL (12.0-18.0); LYMPH # 1.6 K/uL (1.0-4.3); LYMPH % 22.3 % (20.0-40.0); MEAN CELL VOLUME 98.8 fL (80.0-94.0); MEAN CORPUSCULAR HEMOGLOBIN 33.4 pg (27.0-31.0); MEAN CORPUSCULAR HGB CONC 33.7 g/dL (33.0-37.0); MONO # 0.8 K/uL (0.0-0.8); MONO % 11.2 % (0.0-10.0); NEUT # 4.2 K/uL (1.8-7.0); NRBC % 0.2 % (0.0-2.0); RBC 3.51 Mil/uL (4.40-5.90); RED CELL DISTRIBUTION WIDTH 14.9 % (11.5-14.5); WHITE BLOOD COUNT 7.2 K/uL (4.8-10.8)
[2018-08-28] MEDS ORDERED: Bisacodyl 5mg EC Tab PO ONE ×2 (09:21→17:00)
[2018-08-28] MEDS: Multivitamin Vitamin B Complex (Nephro-Vite) Tab PO SCH (09:22)
[2018-08-28] MEDS: Metoprolol Succinate 50 mg XL Tab PO SCH (09:24)
[2018-08-28 09:34] LABS: ALB/GLOB RATIO 1.2 (1.0-2.1); ALBUMIN 4.3 g/dL (3.5-5.0); CALCIUM 9.6 mg/dl (8.6-10.4)
[2018-08-28] MEDS: (Novolin 70/30) NPH/Regular 70/30 Units/ml 10 ml vial SC SCH ×2 (12:25→17:50)
--- NOTE | 2018-08-28 12:42 | CP.PCM.PN ---
Subjective - Date & Time of Evaluation Date of Evaluation: 08/28/18 Time of Evaluation: 12:40 - Subjective Subjective: Nephrology Consultation Note: Assessment: Stable Syncope HTN emergency with pulm edema Diabetic chronic Kidney Disease (E11.22) Hypertensive Chronic Kidney Disease (I12.0) End stage renal disease (N18.6) dependence on hemodialysis (Z99.2) (TTS) via AVF Hyperphosphatemia (E83.39), Secondary Hyperparathyroidism (E21.1), HTN (I12.0) Plan: HD today continue TTS. Continue with Nephrovite 1 tab/day. Continue with phos binders home dose BP stable Glycemic control, Dialysis consistent diet last Hb 10.2 no VINCE for now. Further work up/management as per primary team Dose meds/antibiotics (if needed) for ESRD status. Avoid fleets enema/magnesium based laxatives. cardiology Neuro eval ongoing s: seen and examined no complaints Physical Examination: General Appearance: Comfortable, in no acute respiratory distress, co-operative . Vitals reviewed and noted as below Head; Atraumatic, normocephalic ENT: no ulcers no thrush. Tongue is midline. Oropharynx: no rash or ulcers. EYES: Pupils are equal, round and reactive to light accommodation. Eye muscles and extraocular movement intact. Sclera is anicteric. Neck; supple no lymphadenopathy, no thyromegaly or bruit Lungs: Normal respiratory rate/effort. Breath sounds bilateral improved Heart: Normal rate. s1s2 normal. No rub or gallop. has chest wall tenderness Extremities: no edema. No varicose veins Neurological: Patient is alert, awake and oriented to person, place and time. No focal deficit. Strength bilateral appropriate and equal Skin: Warm and dry. Normal turgor. No rash. Palpitation: Normal elasticity for age Abdomen: Abdomen is soft. Bowel sounds +. There is no abdominal tenderness, no guarding/rigidity or organomegaly Psych: normal insight and normal affect/mood MSK: no joint tenderness or swelling. Digits and nails normal, no deformity : kidney or bladder not palpable Access: AVF Labs/imaging reviewed. Past medical history, past surgical history, family history, social history, allergy reviewed and noted as below Family Hx: no hx of CKD. Non contributory Objective - Vital Signs/Intake and Output Vital Signs (last 24 hours): Temp Pulse Resp BP Pulse Ox 97.8 F 68 20 180/97 H 96 08/28/18 07:00 08/28/18 11:20 08/28/18 07:00 08/28/18 07:00 08/28/18 07:00 - Medications Medications: Current Medications Acetaminophen (Tylenol 325mg Tab) 650 mg PO Q6 PRN PRN Reason: Pain, moderate (4-7) Last Admin: 08/25/18 06:48 Dose: 650 mg Bisacodyl (Dulcolax) 10 mg PO ONCE ONE Stop: 08/28/18 17:01 Dextrose (Dextrose 50% Inj) 0 ml IVP .STAT PRN; Protocol PRN Reason: Hypoglycemia Protocol Last Admin: 08/25/18 15:30 Dose: 25 ml Dextrose (Glutose 15) 0 gm PO .ONCE PRN; Protocol PRN Reason: Hypoglycemia Protocol Glucagon (Glucagen Diagnostic Kit) 0 mg IM .STAT PRN; Protocol PRN Reason: Hypoglycemia Protocol Dextrose (Dextrose 5% In Water 1000 Ml) 1,000 mls @ 0 mls/hr IV .Q0M PRN; Protocol PRN Reason: Hypoglycemia Protocol Insulin Human Isoph/Insulin Regular (Novolin 70/30 (70/30 Units/Ml) 10 Ml) 26 units SC QAM [facility] Last Admin: 08/28/18 12:25 Dose: 26 unit Insulin Human Isoph/Insulin Regular (Novolin 70/30 (70/30 Units/Ml) 10 Ml) 16 units SC QPM [facility] Last Admin: 08/27/18 18:32 Dose: 16 unit Insulin Human Regular (Novolin R) 0 unit SC ACHS ANN; Protocol Last Admin: 08/28/18 11:48 Dose: 3 unit Losartan Potassium (Cozaar) 25 mg PO DAILY [facility] Last Admin: 08/28/18 09:22 Dose: 25 mg Metoprolol Succinate (Toprol Xl) 50 mg PO DAILY [facility] Last Admin: 08/28/18 09:24 Dose: Not Given Rosuvastatin Calcium (Crestor) 5 mg PO HS [facility] Last Admin: 08/27/18 22:16 Dose: 5 mg Sevelamer Carbonate (Renvela) 800 mg PO TIDCC [facility] Last Admin: 08/28/18 11:49 Dose: 800 mg Vitamin B Complex/Vit C/Folic Acid (Nephro-Gaby) 1 tab PO DAILY [facility] Last Admin: 08/28/18 09:22 Dose: 1 tab - Labs Labs: 08/28/18 08:20 08/28/18 08:20
[2018-08-28 14:17] VITALS: O2SAT 98
--- NOTE | 2018-08-28 17:05 | CP.PCM.PN ---
Subjective - Date & Time of Evaluation Date of Evaluation: 08/28/18 Time of Evaluation: 17:05 - Subjective Subjective: alert, orientedx3, denies sob or chest pains, NAD. Objective - Vital Signs/Intake and Output Vital Signs (last 24 hours): Temp Pulse Resp BP Pulse Ox 97.3 F L 87 18 134/83 98 08/28/18 13:25 08/28/18 13:25 08/28/18 13:25 08/28/18 14:05 08/28/18 13:25 Intake and Output: 08/28/18 08/28/18 06:59 18:59 Intake Total 800 Balance 800 - Medications Medications: Current Medications Acetaminophen (Tylenol 325mg Tab) 650 mg PO Q6 PRN PRN Reason: Pain, moderate (4-7) Last Admin: 08/25/18 06:48 Dose: 650 mg Dextrose (Dextrose 50% Inj) 0 ml IVP .STAT PRN; Protocol PRN Reason: Hypoglycemia Protocol Last Admin: 08/25/18 15:30 Dose: 25 ml Dextrose (Glutose 15) 0 gm PO .ONCE PRN; Protocol PRN Reason: Hypoglycemia Protocol Glucagon (Glucagen Diagnostic Kit) 0 mg IM .STAT PRN; Protocol PRN Reason: Hypoglycemia Protocol Dextrose (Dextrose 5% In Water 1000 Ml) 1,000 mls @ 0 mls/hr IV .Q0M PRN; Protocol PRN Reason: Hypoglycemia Protocol Insulin Human Isoph/Insulin Regular (Novolin 70/30 (70/30 Units/Ml) 10 Ml) 26 units SC QAM [facility] Last Admin: 08/28/18 12:25 Dose: 26 unit Insulin Human Isoph/Insulin Regular (Novolin 70/30 (70/30 Units/Ml) 10 Ml) 16 units SC QPM [facility] Last Admin: 08/27/18 18:32 Dose: 16 unit Insulin Human Regular (Novolin R) 0 unit SC ACHS ANN; Protocol Last Admin: 08/28/18 11:48 Dose: 3 unit Losartan Potassium (Cozaar) 25 mg PO DAILY [facility] Last Admin: 08/28/18 09:22 Dose: 25 mg Metoprolol Succinate (Toprol Xl) 50 mg PO DAILY [facility] Last Admin: 08/28/18 09:24 Dose: Not Given Rosuvastatin Calcium (Crestor) 5 mg PO HS [facility] Last Admin: 08/27/18 22:16 Dose: 5 mg Sevelamer Carbonate (Renvela) 800 mg PO TIDCC [facility] Last Admin: 08/28/18 11:49 Dose: 800 mg Vitamin B Complex/Vit C/Folic Acid (Nephro-Gaby) 1 tab PO DAILY [facility] Last Admin: 08/28/18 09:22 Dose: 1 tab - Labs Labs: 08/28/18 08:20 08/28/18 08:20 Assessment and Plan - Assessment and Plan (Free Text) Assessment: 53 year old male admitted after had a syncopal episode, seen and examined. Alert and orientedx3, denies sob or chest pains. Cleared by neuro and cardiology, discussed with DR Quinones, plan to discharge home today after HD. Advised to follow up with PMD in 1 week. Also to follow up with neuro for further work up.
[2018-08-28 17:43] VITALS: RESP 20; TEMP 97.5
--- NOTE | 2018-08-28 18:15 | PCM.HF ---
Heart Failure Core Measure Beta-Tony Prescribed: Metoprolol Succinate
[2018-08-28 18:26] VITALS: BP 103/61; PULSE 67
--- NOTE | 2018-08-28 19:03 | CP.PCM.PN ---
Subjective - Date & Time of Evaluation Date of Evaluation: 08/28/18 Time of Evaluation: 08:00 - Subjective Subjective: dictated Objective - Vital Signs/Intake and Output Vital Signs (last 24 hours): Temp Pulse Resp BP Pulse Ox 97.5 F L 70 20 114/65 98 08/28/18 17:40 08/28/18 17:40 08/28/18 17:40 08/28/18 17:40 08/28/18 17:40 Intake and Output: 08/28/18 08/29/18 18:59 06:59 Intake Total 800 Balance 800 - Medications Medications: Current Medications Acetaminophen (Tylenol 325mg Tab) 650 mg PO Q6 PRN PRN Reason: Pain, moderate (4-7) Last Admin: 08/28/18 17:45 Dose: 650 mg Dextrose (Dextrose 50% Inj) 0 ml IVP .STAT PRN; Protocol PRN Reason: Hypoglycemia Protocol Last Admin: 08/25/18 15:30 Dose: 25 ml Dextrose (Glutose 15) 0 gm PO .ONCE PRN; Protocol PRN Reason: Hypoglycemia Protocol Glucagon (Glucagen Diagnostic Kit) 0 mg IM .STAT PRN; Protocol PRN Reason: Hypoglycemia Protocol Dextrose (Dextrose 5% In Water 1000 Ml) 1,000 mls @ 0 mls/hr IV .Q0M PRN; Pr otocol PRN Reason: Hypoglycemia Protocol Insulin Human Isoph/Insulin Regular (Novolin 70/30 (70/30 Units/Ml) 10 Ml) 26 units SC QAM [facility] Last Admin: 08/28/18 12:25 Dose: 26 unit Insulin Human Isoph/Insulin Regular (Novolin 70/30 (70/30 Units/Ml) 10 Ml) 16 units SC QPM [facility] Last Admin: 08/28/18 17:50 Dose: 16 unit Insulin Human Regular (Novolin R) 0 unit SC ACHS [facility]; Protocol Last Admin: 08/28/18 17:46 Dose: Not Given Losartan Potassium (Cozaar) 25 mg PO DAILY [facility] Last Admin: 08/28/18 09:22 Dose: 25 mg Metoprolol Succinate (Toprol Xl) 50 mg PO DAILY [facility] Last Admin: 08/28/18 09:24 Dose: Not Given Rosuvastatin Calcium (Crestor) 5 mg PO HS [facility] Last Admin: 08/27/18 22:16 Dose: 5 mg Sevelamer Carbonate (Renvela) 800 mg PO TIDCC [facility] Last Admin: 08/28/18 17:42 Dose: 800 mg Vitamin B Complex/Vit C/Folic Acid (Nephro-Gaby) 1 tab PO DAILY [facility] Last Admin: 08/28/18 09:22 Dose: 1 tab - Labs Labs: 08/28/18 08:20 08/28/18 08:20
--- NOTE | 2018-08-28 22:10 | CP.PCM.PN ---
Subjective - Date & Time of Evaluation Date of Evaluation: 08/27/18 Time of Evaluation: 18:00 - Subjective Subjective: Patient seen and evaluated Denies chest pain, dyspnea and recurrent syncopial episodes No cardiac events noted Review Of Systems Except As Marked, All Systems Reviewed And Found Negative. Constitutional: Negative for: Fever, Chills Cardiovascular: Positive for: Chest Pain Respiratory: Positive for: Shortness of Breath Gastrointestinal: Negative for: Nausea, Vomiting, Abdominal Pain Neurological: Positive for: Other (syncopal episode) Physical Exam - Physical Exam Appears: Non-toxic, No Acute Distress Skin: Normal Color, Warm, Dry Head: Atraumatic, Normacephalic Eye(s): bilateral: Normal Inspection Nose: Normal Oral Mucosa: Moist Neck: Supple Chest: Symmetrical, Tenderness (left chest wall tenderness), No Ecchymosis Cardiovascular: Rhythm Regular Respiratory: Normal Breath Sounds, No Rales, No Rhonchi, No Wheezing Gastrointestinal/Abdominal: Normal Exam, Soft, No Tenderness, No Guarding, No Rebound Extremity: Normal ROM, Other (AV graft to LUE with positive thrill, long standing brace to right leg) Neurological/Psych: Oriented x3, Normal Speech Assessment and Plan - Assessment and Plan (Free Text) Assessment: Syncope HTN'CKD on HD Normal ECHO, ROMIs and Carotid duplex Neuro eval Objective - Vital Signs/Intake and Output Vital Signs (last 24 hours): Temp Pulse Resp BP Pulse Ox 97.5 F L 70 20 114/65 98 08/28/18 17:40 08/28/18 17:40 08/28/18 17:40 08/28/18 17:40 08/28/18 17:40 Intake and Output: 08/28/18 08/29/18 18:59 06:59 Intake Total 800 Balance 800 - Labs Labs: 08/28/18 08:20 08/28/18 08:20
--- NOTE | 2018-08-28 22:12 | CP.PCM.PN ---
Subjective - Date & Time of Evaluation Date of Evaluation: 08/28/18 Time of Evaluation: 07:40 - Subjective Subjective: Patient seen and evaluated Denies chest pain, dyspnea and recurrent syncopial episodes No cardiac events noted Review Of Systems Except As Marked, All Systems Reviewed And Found Negative. Constitutional: Negative for: Fever, Chills Cardiovascular: Positive for: Chest Pain Respiratory: Positive for: Shortness of Breath Gastrointestinal: Negative for: Nausea, Vomiting, Abdominal Pain Neurological: Positive for: Other (syncopal episode) Physical Exam - Physical Exam Appears: Non-toxic, No Acute Distress Skin: Normal Color, Warm, Dry Head: Atraumatic, Normacephalic Eye(s): bilateral: Normal Inspection Nose: Normal Oral Mucosa: Moist Neck: Supple Chest: Symmetrical, Tenderness (left chest wall tenderness), No Ecchymosis Cardiovascular: Rhythm Regular Respiratory: Normal Breath Sounds, No Rales, No Rhonchi, No Wheezing Gastrointestinal/Abdominal: Normal Exam, Soft, No Tenderness, No Guarding, No Rebound Extremity: Normal ROM, Other (AV graft to LUE with positive thrill, long standing brace to right leg) Neurological/Psych: Oriented x3, Normal Speech Assessment and Plan - Assessment and Plan (Free Text) Assessment: Syncope HTN'CKD on HD Normal ECHO, ROMIs and Carotid duplex Neuro eval Patient for discharge today Objective - Vital Signs/Intake and Output Vital Signs (last 24 hours): Temp Pulse Resp BP Pulse Ox 97.5 F L 70 20 114/65 98 08/28/18 17:40 08/28/18 17:40 08/28/18 17:40 08/28/18 17:40 08/28/18 17:40 Intake and Output: 08/28/18 08/29/18 18:59 06:59 Intake Total 800 Balance 800 - Labs Labs: 08/28/18 08:20 08/28/18 08:20
--- NOTE | 2018-08-28 22:21 | CP.PCM.DIS ---
Provider - Provider Date of Admission: 08/25/18 23:21 Attending physician: Kalpesh Quinones MD Consults: 08/25/18 00:09 Cardiology Consult Routine Comment: syncope Consulting Provider: Milton Alexander Consulting Physician: Milton Alexander Reason for Consult: syncope 08/25/18 09:34 Nephrology Consult Routine Comment: Consulting Provider: Taqueria Carson Consulting Physician: Taqueria Carson Reason for Consult: ESRD 08/27/18 06:20 Neurology Consult Routine Comment: Please notify Dr. Cruz Consulting Provider: Cornell Cruz Consulting Physician: Cornell Cruz Reason for Consult: Syncope Time Spent in preparation of Discharge (in minutes): 30 Hospital Course - Lab Results Lab Results: Most Recent Lab Values WBC 7.2 K/uL (4.8-10.8) 08/28/18 08:20 RBC 3.51 Mil/uL (4.40-5.90) L 08/28/18 08:20 Hgb 11.7 g/dL (12.0-18.0) L 08/28/18 08:20 Hct 34.7 % (35.0-51.0) L 08/28/18 08:20 MCV 98.8 fL (80.0-94.0) H 08/28/18 08:20 MCH 33.4 pg (27.0-31.0) H 08/28/18 08:20 MCHC 33.7 g/dL (33.0-37.0) 08/28/18 08:20 RDW 14.9 % (11.5-14.5) H 08/28/18 08:20 Plt Count 236 K/uL (130-400) 08/28/18 08:20 MPV 9.0 fL (7.2-11.7) 08/28/18 08:20 Neut % (Auto) 59.0 % (50.0-75.0) 08/28/18 08:20 Lymph % (Auto) 22.3 % (20.0-40.0) 08/28/18 08:20 Gila % (Auto) 11.2 % (0.0-10.0) H 08/28/18 08:20 Eos % (Auto) 6.0 % (0.0-4.0) H 08/28/18 08:20 Baso % (Auto) 1.5 % (0.0-2.0) 08/28/18 08:20 Neut # (Auto) 4.2 K/uL (1.8-7.0) 08/28/18 08:20 Lymph # (Auto) 1.6 K/uL (1.0-4.3) 08/28/18 08:20 Gila # (Auto) 0.8 K/uL (0.0-0.8) 08/28/18 08:20 Eos # (Auto) 0.4 K/uL (0.0-0.7) 08/28/18 08:20 Baso # (Auto) 0.1 K/uL (0.0-0.2) 08/28/18 08:20 Neutrophils % (Manual) 83 % (50-75) H 08/24/18 10:15 Band Neutrophils % 5 % (0-2) H 08/24/18 10:15 Lymphocytes % (Manual) 4 % (20-40) L 08/24/18 10:15 Monocytes % (Manual) 5 % (0-10) 08/24/18 10:15 Eosinophils % (Manual) 3 % (0-4) 08/24/18 10:15 Platelet Estimate Normal (NORMAL) 08/24/18 10:15 RBC Morphology Normal 08/24/18 10:15 Sodium 136 mmol/L (132-148) 08/28/18 08:20 Potassium 4.5 mmol/L (3.6-5.2) 08/28/18 08:20 Chloride 95 mmol/L (98-107) L 08/28/18 08:20 Carbon Dioxide 28 mmol/L (22-30) 08/28/18 08:20 Anion Gap 18 (10-20) 08/28/18 08:20 BUN 57 mg/dL (9-20) H 08/28/18 08:20 Creatinine 10.7 mg/dL (0.8-1.5) H* 08/28/18 08:20 Est GFR ( Amer) 6 08/28/18 08:20 Est GFR (Non-Af Amer) 5 08/28/18 08:20 POC Glucose (mg/dL) 116 mg/dL (65-110) H 08/28/18 17:46 Random Glucose 127 mg/dL (75-110) H D 03/23/19 08:20 Hemoglobin A1c 5.4 % (4.2-6.5) 08/27/18 07:52 Calcium 9.6 mg/dl (8.6-10.4) 08/28/18 08:20 Total Bilirubin 0.4 mg/dL (0.2-1.3) 08/28/18 08:20 AST 19 U/L (17-59) 08/28/18 08:20 ALT 15 U/L (21-72) L D 08/28/18 08:20 Alkaline Phosphatase 140 U/L (38-126) H 08/28/18 08:20 Troponin I < 0.0120 ng/mL (0.00-0.120) 08/24/18 10:15 NT-Pro-B Natriuret Pep 35521 pg/mL (0-900) H 08/24/18 10:15 Total Protein 7.8 g/dL (6.3-8.3) 08/28/18 08:20 Albumin 4.3 g/dL (3.5-5.0) 08/28/18 08:20 Globulin 3.5 gm/dL (2.2-3.9) 08/28/18 08:20 Albumin/Globulin Ratio 1.2 (1.0-2.1) 08/28/18 08:20 Homocysteine 24.7 umol/L (6.6-14.8) H 08/27/18 07:52 Discharge Plan - Follow Up Plan Condition: STABLE Disposition: HOME/ ROUTINE Instructions: DASH Diet, Heart Failure, Adult (DC), Heart Failure Exercise Guide, Dialysis and Diet Additional Instructions: follow up with PMD in 1 week may use metamucil 1 scoop daily to prevent constipation follow up with neurologyst as advised continue with HD , TTS Referrals: Milton Alexander MD [Staff Provider] - Taqueria Carson MD [Staff Provider] - Kalpesh Quinones MD [Staff Provider] -
--- NOTE | 2018-08-29 05:14 | DS ---
DISCHARGE DIAGNOSES: 1. Hypoglycemia with syncope. 2. Hypertension. 3. Type 2 diabetes, poorly controlled. 4. Chronic kidney disease, on hemodialysis. HOSPITAL COURSE: This is a 53-year-old male with multiple medical problem, diabetes, hypertension, hyperlipidemia, CKD, on hemodialysis for several years. He passed out in the dialysis unit and he was brought into the emergency room and he was hospitalized. In the course of transfer, he underwent cardiac resuscitation. The patient was admitted to the floor. PA is ruled out by three sets of negative cardiac enzymes. He is on dialysis and he is doing well. He underwent workup, which is negative. The patient will need outpatient workup. Carotid Doppler is negative. The patient is being discharged with outpatient followup. CONDITION UPON DISCHARGE: Stable. Kalpesh Quinones MD
== END 2018-08-28 18:20 | disposition home or self-care (01) | DRG 291 ==
LOC: C.ER 09:09 → C.9E 12:02 → C.5S 14:53 → OBSVTOIN 08-25 23:21
PROVIDERS: ADMIT Internal Medicine; ATTEND Internal Medicine
DX: I13.2 Hypertensive heart and chronic kidney disease with heart failure and with stage 5 chronic kidney disease, or end stage renal disease (principal); N18.6 End stage renal disease; N25.81 Secondary hyperparathyroidism of renal origin; I16.1 Hypertensive emergency; E11.65 Type 2 diabetes mellitus with hyperglycemia; E83.39 Other disorders of phosphorus metabolism; E11.22 Type 2 diabetes mellitus with diabetic chronic kidney disease; E11.21 Type 2 diabetes mellitus with diabetic nephropathy; E78.00 Pure hypercholesterolemia, unspecified; E78.5 Hyperlipidemia, unspecified; Z79.4 Long term (current) use of insulin; Z99.2 Dependence on renal dialysis